=== PATIENT | female | born 1960 | race Caucasian/White ===

== ENCOUNTER 2018-09-15 07:17 | Outpatient (CLI) | payer OTHER, SELFPAY ==
[2018-09-15 08:14] LABS: Abs Immature Grans 0.02 k/cumm (0.0-0.09); Absolute Basophil Count 0.02 k/cumm (0.0-0.2); Absolute Eosinophil Count 0.09 k/cumm (0.0-0.7); Absolute Lymphocyte Count 2.64 k/cumm (1.2-3.4); Absolute Monocyte Count 0.69 k/cumm (0.11-0.7); Absolute Neutrophil Count 4.91 k/cumm (1.2-6.7); Basophils % 0.2; Eosinophils % 1.1; HCT 46.6 % (36.0-46.0); Immature Grans % 0.2; Lymphocytes % 31.5; Mean Corp. HGB Concentration 32.2 g/dL (32.0-36.0); Mean Corpuscular Volume 87.1 fL (80-95); Mean Platelet Volume 10.5 fL (8.0-11.0); Monocytes % 8.2; Neutrophils % 58.8; Platelet Count 282 x1000/uL (130-400); RBC 5.35 m/cumm (4.00-5.20); RBC Distribution Width 13.6 % (11.7-14.6); White Blood Cell Count 8.37 k/cumm (4.4-10.8)
[2018-09-15 09:00] LABS: Bilirubin Negative (Negative); Blood Negative (Negative); Clarity Sl Cloudy; Glucose Negative (Negative); Ketones Negative (Negative); Leukocyte Esterase Negative (Negative); Nitrite Negative (Negative); Urobilinogen 0.2 EU/dL (Up TO 0.2)
[2018-09-15 09:17] LABS: Hemoglobin A1C 5.9 % (4.5-6.2)
[2018-09-15 09:25] LABS: ESR 9 MM/HR (0-30)
[2018-09-15 09:37] LABS: ALT 26 U/L (12-78); AST 15 U/L (15-37); Albumin 3.6 g/dL (3.4-5.0); Alkaline Phosphatase 91 U/L (46-116); BUN 9 mg/dL (7-18); Bilirubin, Total 0.6 mg/dL (0.2-1.0); Chloride 103 mmol/L (98-107); Glucose 109 mg/dL (70-100); Magnesium 1.9 mg/dL (1.8-2.4); Potassium 3.8 mmol/L (3.5-5.1); Sodium 141 mmol/L (136-145); Total Protein 6.4 g/dL (6.4-8.2)
[2018-09-15 10:44] LABS: FREE T4 0.94 ng/dL (0.76-1.46)
[2018-09-15 12:37] LABS: Calcium 8.9 mg/dL (8.5-10.1)
== END 2018-09-15 07:37 ==
PROVIDERS: PCP Family Medicine; Visit Provider Family Medicine
DX: R53.83 Other fatigue (principal)
CPT/HCPCS: 36415; 80053; 85652; 81003; 83036; 83735; 84439; 84443; 85025

== ENCOUNTER 2018-09-22 09:23 | Outpatient (CLI) | payer OTHER, SELFPAY ==
[2018-09-22 11:36] LABS: Vitamin B12 259 pg/mL (193-986)
[2018-09-23 07:28] LABS: Vitamin D 25 Total 31.4 ng/ml (30-100)
[2018-09-25 11:32] LABS: Methylmalonic Acid 0.11 nmol/mL (<=0.40)
== END 2018-09-22 09:43 ==
PROVIDERS: PCP Family Medicine; Visit Provider Family Medicine
DX: R53.83 Other fatigue (principal); E53.8 Deficiency of other specified B group vitamins
CPT/HCPCS: 36415; 80186; 82306; 82607

== ENCOUNTER 2019-04-29 07:03 | Outpatient (CLI) | payer OTHER, SELFPAY ==
[2019-04-29 07:44] LABS: Abs Immature Grans 0.02 k/cumm (0.0-0.09); Absolute Basophil Count 0.03 k/cumm (0.0-0.2); Absolute Eosinophil Count 0.11 k/cumm (0.0-0.7); Absolute Lymphocyte Count 3.04 k/cumm (1.2-3.4); Absolute Monocyte Count 0.89 k/cumm (0.11-0.7); Absolute Neutrophil Count 6.42 k/cumm (1.2-6.7); Basophils % 0.3; HCT 47.8 % (36.0-46.0); HGB 15.7 g/dL (12.0-15.5); Immature Grans % 0.2; Lymphocytes % 28.9; Mean Corp. HGB Concentration 32.8 g/dL (32.0-36.0); Mean Corpuscular Hemoglobin 28.9 pg (27.0-33.0); Mean Corpuscular Volume 87.9 fL (80-95); Mean Platelet Volume 10.6 fL (8.0-11.0); Monocytes % 8.5; Neutrophils % 61.1; Platelet Count 271 x1000/uL (130-400); RBC 5.44 m/cumm (4.00-5.20); White Blood Cell Count 10.51 k/cumm (4.4-10.8)
[2019-04-29 08:49] LABS: ALT 31 U/L (12-78); AST 13 U/L (15-37); Albumin 3.7 g/dL (3.4-5.0); Alkaline Phosphatase 101 U/L (46-116); Anion Gap 11.2 mmol/L (3-11); BUN 10 mg/dL (7-18); Bilirubin, Total 0.4 mg/dL (0.2-1.0); CO2 29.8 mmol/L (21.0-32.0); CREATININE 0.75 mg/dL (0.55-1.02); Calcium 9.1 mg/dL (8.5-10.1); Chloride 102 mmol/L (98-107); Cholesterol 211 mg/dL (50-200); Glucose 106 mg/dL (70-100); HDL Cholesterol 40 mg/dL (40-60); LDL CHOLESTEROL 141 mg/dL (<100); Sodium 143 mmol/L (136-145); TSH (W/Ref FT4) 4.29 uIU/mL (0.358-3.74); Total Protein 6.7 g/dL (6.4-8.2); Triglyceride 181 mg/dL (30-150)
[2019-04-29 09:26] LABS: FREE T4 1.02 ng/dL (0.76-1.46)
[2019-05-03 13:16] LABS: Methylmalonic Acid 0.11 nmol/mL (<=0.40)
== END 2019-04-29 07:23 ==
PROVIDERS: PCP Family Medicine; Visit Provider Family Medicine
DX: E53.8 Deficiency of other specified B group vitamins (principal); E06.3 Autoimmune thyroiditis; F32.9 Major depressive disorder, single episode, unspecified; I10 Essential (primary) hypertension
CPT/HCPCS: 80053; 80061; 80186; 83721; 83036; 84439; 84443; 85025

== ENCOUNTER 2019-05-18 00:46 | Outpatient (CLI) | payer OTHER, SELFPAY ==
--- NOTE | 2019-05-18 10:30 | DI.MAMMO_ITS ---
SYMPTOMS/DIAGNOSIS: SCREENING, Z12.31 MAMMOGRAMS: Mammograms were interpreted according to the usual protocol including computer analysis with CAD system, tomosynthesis and C view imaging. The breast tissue is of moderate radiodensity. There is no dominant mass. There are no suspicious calcifications and there has been no significant interval change when compared with prior images. SUMMARY: No evidence of malignancy, category 1. Yearly screening mammography is recommended. Breast density category B. SA ASSESSMENT OF FINDINGS: Negative. Category 1. Patient will receive a letter notifying them of these results. BI-RADS category B. There are scattered areas of fibroglandular density.
== END 2019-05-18 01:06 ==
PROVIDERS: PCP Family Medicine; Visit Provider Family Medicine
DX: Z12.31 Encounter for screening mammogram for malignant neoplasm of breast
CPT/HCPCS: 77063; 77067

== ENCOUNTER 2019-09-10 11:16 | Emergency (ER) | payer OTHER, SELFPAY ==
[2019-09-10] VITALS (23 sets, daily range): BP systolic 127–148; BP diastolic 71–74; PULSE 74–90; RESP 4–24; TEMP 36.6; O2SAT 90–99
--- NOTE | 2019-09-10 11:24 | DI.RAD_ITS ---
EXAM: XR CHEST 2V PA LATERAL INDICATION: sob, h/o copd, r/o pneumonia/chf. COMPARISON: CHEST 2 VIEWS PA,LAT from 03/10/2018 TECHNIQUE: 2D digital imaging was performed. FINDINGS: Heart is not enlarged. Lungs are clear and well expanded. No pleural effusion seen. IMPRESSION: Negative examination of the chest.
--- NOTE | 2019-09-10 11:25 | W.ED.GENAD ---
Discharge Plan Disposition Patient Disposition: HOME Condition: Improving Discharge Details Chief Complaint: SOB Clinical Impression: Acute exacerbation of chronic obstructive pulmonary disease (COPD), Acute URI Primary Care Provider: Jonah Reinoso ED Provider: Honey Rios Home Meds and New Rx's Prescriptions: New albuterol sulfate 2.5 mg /3 mL (0.083 %) solution for nebulization 2.5 mg IH QID PRN (Reason: shortness of breath or wheezing) Qty: 75 RF: 0 prednisone 20 mg tablet See Rx Instructions .ROUTE .COMPLEX Qty: 18 RF: 0 Continued calcium citrate [Calcitrate] 200 mg (950 mg) tablet 500 mg PO DAILY RF: 0 cholecalciferol (vitamin D3) 3,000 unit tablet 5,000 unit PO DAILY RF: 0 Fish Oil 1 EACH capsule 1 ea PO DAILY RF: 0 metoprolol tartrate 50 mg tablet 25 mg PO BID Qty: 60 RF: 5 paroxetine HCl [Paxil] 20 mg tablet 20 mg PO DAILY Qty: 90 RF: 3 loratadine 10 MG tablet 10 mg PO DAILY RF: 0 trazodone 100 mg tablet 100 mg PO HS RF: 0 albuterol sulfate [ProAir HFA] 200 PUFF HFA aerosol inhaler 2 puff Inhalation Q4H PRN PRNQty: 1 RF: 0 Discharge Instructions Instructions: Upper Respiratory Infection (ED), COPD (Chronic Obstructive Pulmonary Disease) (ED) Additional Instructions: Use your albuterol inhaler and nebulizer as needed and directed. Stop your current prescription for your steroids and start this new prescription for steroids starting tomorrow. Use the Symbicort as directed. Follow-up with your primary care doctor next week for reevaluation. Return to the emergency department if you develop any worsening or new concerning symptoms. Discharge Data Discharge Date/Time-TO BE ENTERED AT DEPARTURE: 09/10/19 15:17 Discharge Physician: Honey Rios Medical Decision Making 59-year-old female with a history of COPD, hypertension, obstructive sleep apnea presents to the ED with complaint of shortness of breath with cough over the past few days. She is currently being treated with an inhaler and prednisone per PCP but without relief. She has scattered wheezing throughout. She has 1+ pitting bilateral lower extremity edema. No crackles noted. She is speaking in full sentences and does not appear in any acute respiratory distress. EKG notes a rate of 85, sinus with [address] depression noted in V6 but no other acute ST findings and no ST elevation. Differential diagnosis includes acute COPD, acute CHF, pneumonia, bronchitis, influenza. Will place an IV, give Solu-Medrol, DuoNeb, screening labs, influenza and chest x-ray and reassess. Patient denies any relief in her symptoms. She still has scattered wheezing throughout but does not appear in any acute respiratory distress. Chest x-ray appears clear. We will give a 7.5 mg neb and reassess. 1440 --patient states she feels much better. Lung sounds significantly improved. She is speaking in full sentences. Labs and imaging reviewed and unremarkable. White blood cell count 12. Electrolytes within normal limits. Troponin negative. BNP 341. Chest x-ray negative. Patient states she feels good to go home. Case discussed with respiratory who stated that patient had been prescribed Combivent but patient did not purchase due to high cost. Will send patient with a Symbicort inhaler. She is advised to use her albuterol inhaler and nebulizer as needed and stop her current prednisone prescription to start a higher dose prescription tomorrow. She is no longer smoker so do not see an indication for antibiotics at this time. She is advised to follow-up with her primary care doctor return here if worse. Imaging Data Radiologic Study: Radiologist's impression: XR Chest, 2 Views Exam date and time: 09/10/2019 12:15 PM Clinical history: 59 years old, female; Cough and shortness of breath TECHNIQUE: Imaging protocol: XR of the chest Views: 2 views. COMPARISON: CR CHEST 2 VIEWS PA,LAT 03/10/2018 7:45 PM FINDINGS: Lungs: Unremarkable. No consolidation. Pleural space: Unremarkable. No pleural effusion. No pneumothorax. Heart/Mediastinum: Unremarkable. No cardiomegaly. Bones/joints: No acute bony findings. IMPRESSION: Normal chest x-ray. Lab Data Lab results reviewed: Yes I reviewed the patient's lab results. Labs: 09/10/19 12:25 Nose Influenza Types A,B Antigen - Final Laboratory Tests Range/Units 09/10/19 09/10/19 09/10/19 11:48 11:48 12:25 WBC Cancelled RBC Cancelled Hgb Cancelled Hct Cancelled MCV Cancelled MCH Cancelled MCHC Cancelled RDW Cancelled Plt Count Cancelled MPV Cancelled Immature Gran % Cancelled Neutrophils % Cancelled Band Neutrophils % Cancelled Lymphocytes % Cancelled Atypical Lymphs % Cancelled Monocytes % Cancelled Eosinophils % Cancelled Basophils % Cancelled Metamyelocytes % Cancelled Myelocytes % Cancelled Promyelocytes % Cancelled Absolute Neutrophils Cancelled Absolute Lymphocytes Cancelled Absolute Monocytes Cancelled Absolute Eosinophils Cancelled Absolute Basophils Cancelled Nucleated RBCs Cancelled Differential Comment Cancelled Other Cell Type Cancelled RBC Morphology Cancelled Polychromasia Cancelled Hypochromasia Cancelled Poikilocytosis Cancelled Basophilic Stippling Cancelled Anisocytosis Cancelled Microcytosis Cancelled Macrocytosis Cancelled Spherocytes Cancelled Target Cells Cancelled Tear Drop Cells Cancelled Ovalocytes Cancelled Stomatocytes Cancelled Campos-Wolfforth Bodies Cancelled Dolores Cells Cancelled Acanthocytes (Spur) Cancelled Schistocytes Cancelled Sodium Cancelled 142 Potassium Cancelled 3.5 Chloride Cancelled 103 Carbon Dioxide Cancelled 29.6 Anion Gap Cancelled 9.4 BUN Cancelled 6 L Creatinine Cancelled 0.78 Estimated GFR/1.73 m2 Cancelled >= 60.00 Glucose Cancelled 113 H Calcium Cancelled 8.7 Magnesium Cancelled 1.7 L Total Bilirubin Cancelled 0.4 AST Cancelled 19 ALT Cancelled 33 Alkaline Phosphatase Cancelled 88 Troponin I Cancelled < 0.05 NT-Pro-B Natriuret Pep Cancelled Total Protein Cancelled 7.2 Albumin Cancelled 3.8 Range/Units 09/10/19 09/10/19 12:25 12:56 WBC 12.09 H RBC 5.26 H Hgb 15.3 Hct 46.5 H MCV 88.4 MCH 29.1 MCHC 32.9 RDW 13.7 Plt Count 294 MPV 10.1 Immature Gran % 0.5 Neutrophils % 69.2 Band Neutrophils % Lymphocytes % 21.9 Atypical Lymphs % Monocytes % 8.1 Eosinophils % 0.1 Basophils % 0.2 Metamyelocytes % Myelocytes % Promyelocytes % Absolute Neutrophils 8.37 H Absolute Lymphocytes 2.65 Absolute Monocytes 0.98 H Absolute Eosinophils 0.01 Absolute Basophils 0.02 Nucleated RBCs Differential Comment Other Cell Type RBC Morphology Polychromasia Hypochromasia Poikilocytosis Basophilic Stippling Anisocytosis Microcytosis Macrocytosis Spherocytes Target Cells Tear Drop Cells Ovalocytes Stomatocytes Campos-Wolfforth Bodies Dolores Cells Acanthocytes (Spur) Schistocytes Sodium Potassium Chloride Carbon Dioxide Anion Gap BUN Creatinine Estimated GFR/1.73 m2 Glucose Calcium Magnesium Total Bilirubin AST ALT Alkaline Phosphatase Troponin I NT-Pro-B Natriuret Pep 341 H Total Protein Albumin ECG Data Attestation: I personally reviewed and interpreted this ECG (s) as follows: Interpretation: Rate of 85, sinus, [address] depression noted in V6. No acute ST elevation. OK 154. QTc 471. QRS 96. HPI General Mode of arrival: ambulatory. Date/Time Provider Initiated Documentation: 09/10/19 11:21. Limitations to Documentation: no limitations. Information obtained by: patient. HPI Narrative: Patient is a 59-year-old female with a history of COPD, hypertension, obstructive sleep apnea who presents to the ED with a complaint of shortness of breath with cough over the past few days. She states she saw her pcp for her symptoms and is currently being treated with an inhaler and prednisone without any relief. She states the cough is occasionally productive of white sputum.. She denies any known fever and states she has been eating a drinking normally. She admits to chest pain that occurs only with coughing. She admits to chronic lower extremity swelling and states this is no worse than usual. Related Data Home Medications Medication Instructions Recorded Confirmed loratadine 10 mg PO DAILY 05/01/17 09/12/19 albuterol sulfate [ProAir HFA] 2 puff INHALATION Q4H PRN PRN #1 03/12/18 09/12/19 inh Fish Oil 1 ea PO DAILY 04/27/18 09/12/19 calcium citrate 200 mg (950 mg) 500 mg PO DAILY tab 09/10/18 09/12/19 tablet cholecalciferol (vitamin D3) 3,000 5,000 unit PO DAILY tab 09/10/18 09/12/19 unit tablet metoprolol tartrate 50 mg tablet 25 mg PO BID #60 tab-cap 10/06/18 09/12/19 paroxetine HCl 20 mg tablet 20 mg PO DAILY #90 tab-cap 10/06/18 09/12/19 albuterol sulfate 2.5 mg IH QID PRN #75 ml 09/10/19 09/12/19 prednisone See Rx Instructions .ROUTE 09/10/19 09/12/19 .COMPLEX #18 tab trazodone 100 mg PO HS 09/10/19 09/12/19 Previous Rx's Medication Instructions Recorded albuterol sulfate [ProAir HFA] 2 puff INHALATION Q4H PRN PRN #1 03/12/18 inh metoprolol tartrate 50 mg tablet 25 mg PO BID #60 tab-cap 10/06/18 paroxetine HCl 20 mg tablet 20 mg PO DAILY #90 tab-cap 10/06/18 albuterol sulfate 2.5 mg IH QID PRN #75 ml 09/10/19 prednisone See Rx Instructions .ROUTE 09/10/19 .COMPLEX #18 tab Allergies Allergy/AdvReac Type Severity Reaction Status Date / Time Sulfa (Sulfonamide Allergy Severe HIVES; RASH Unverified 09/10/19 11:21 Antibiotics) bupropion AdvReac Severe HIGH BLOOD Unverified 09/10/19 11:21 PRESSURE erythromycin base AdvReac Intermediate YEAST Unverified 09/10/19 11:21 INFECTIONS lisinopril AdvReac Mild cough Unverified 09/10/19 11:21 General Stated Complaint: SOB GOOD: 3 Review of Systems Review of Systems ROS Unobtainable: All systems reviewed & are unremarkable except as noted in HPI and below Constitutional Constitutional: Reports as per HPI, Denies chills and Denies fever(s) Eyes Eyes: Denies blurry vision ENT Ears, Nose, Mouth, and Throat: Denies dizziness, Denies sore throat and Denies throat swelling Cardiovascular Cardiovascular: Denies chest pain and Reports dyspnea Respiratory Respiratory: Reports cough and Reports dyspnea Gastrointestinal Gastrointestinal: Denies abdominal pain, Denies diarrhea and Denies vomiting Genitourinary Genitourinary: Denies hematuria and Denies dysuria Musculoskeletal Musculoskeletal: Denies back pain and Denies numbness Integumentary/Breasts Skin/Breast: Denies lesions and Denies rash Neurologic Neurologic: Denies dizziness, Denies focal weakness and Denies numbness Allergic/Immunologic Allergic/Immunologic: Denies throat swelling [facility] Medical History Chronic obstructive pulmonary disease (Inactive 04/27/18) Depression (Inactive) Essential hypertension (Inactive 11/08/13) 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) Obesity (Inactive 05/11/13) Obstructive sleep apnea syndrome (Inactive 05/11/13) Osteoporosis (Inactive) Peripheral neuralgia (Inactive) Surgical History History of section (Inactive 04/16/16) History of hysterectomy with oophorectomy (Inactive 04/16/16) History of tonsillectomy (Inactive 04/16/16) Family History Mother , 77 Diabetes Essential hypertension Heart disease Hyperlipidemia Lung cancer Breast cancer Liver cancer Father , 55 Substance abuse Lung cancer Sister Diabetes Depression Hyperlipidemia Asthma Sister , 44 Diabetes Depression Heart disease Hyperlipidemia Sister Essential hypertension Depression Hyperlipidemia Brother Substance abuse Depression Hyperlipidemia Alcohol abuse Brother Hyperlipidemia Brother Alcohol abuse Substance abuse Maternal Grandfather , 86 Diabetes Essential hypertension Heart disease Hyperlipidemia Lung cancer Maternal Grandmother Breast cancer Sister Depression Son Substance abuse Alcohol abuse Son Substance abuse Alcohol abuse Daughter Depression Paternal Grandfather No problems noted. Paternal Grandmother No problems noted. Social History Smoking/Tobacco Use Status: Former Tobacco Use Quit Date: 11/30/17 Second Hand Exposure: No Alcohol Intake: former Drug use: Never Substance use type: does not use Caregiver/Support person: No Household members: none Housing: apartment Communication Needs: None Do you need help understanding health information?: Rarely current occupation: [employer] SERVICES [employer] Pets and animals: No Sexually active: No Do you think of yourself as: straight/heterosexual What is your relationship status?: How often do you talk on the phone with friends or family?: three or more times per week How often do you get together with friends or relatives?: once per week How often do you attend amish or baptist services?: decline to answer Do you belong to any clubs or organized social groups?: no Panel score (0-1 are the most socially isolated patients): 1 What type of physical activity do you participate in: walking Duration: 15-30 minutes/day Frequency: daily Sveta/Denominational: None Special sveta needs: No Seatbelt use: always Helmet use: Yes Helmet use: sometimes Drive intox or ride w/intox motor vehicle escort driver: No Do you feel safe at home: Yes Do you feel safe in your relationship?: Yes Exam Const General: cooperative, healthy appearing and no acute distress HENMT Head: normal to inspection Face and sinus: normal facial exam Eyes General: appearance normal, both eyes and all related structures EOM: EOM intact bilaterally Neck Neck: normal visual inspection and No submandibular swelling Lymphatic: no lymphadenopathy noted Chest Chest: normal inspection of the chest and no tenderness Resp Effort & Inspection: normal respiratory effort and able to speak in complete sentences Auscultation: wheezes expiratory wheezes and inspiratory wheezes Cardio Rate: regular rate Rhythm: regular rhythm GI Inspection: normal to inspection Palpation: soft, not firm, not rigid and nontender Auscultation: normal bowel sounds Skin General skin exam: no rashes or lesions noted Neuro General: alert, awake and oriented x3 Cognition: normal cognition Speech: speech normal Motor: muscle tone normal throughout Sensory Exam: no sensory deficits noted Extrem General: normal to inspection, full ROM, normal capillary refill, no calf tenderness bilaterally and edema Laterality: bilateral (1+ pitting) Psych Appearance: grossly normal Mental Status: mental status grossly normal Speech and Movement: speech and movement normal Affect: normal affect Course Vital Signs Vital signs: Vital Signs Temperature 97.9 F 09/10/19 11:18 Pulse 84 09/10/19 11:18 Respiratory Rate 16 09/10/19 11:18 Pulse Oximetry 93 L 09/10/19 11:18 Temperature 97.9 F 09/10/19 11:18 Temperature Source Skin 09/10/19 11:18 Pulse 84 09/10/19 11:18 Respiratory Rate 16 09/10/19 11:18 Pulse Oximetry 93 L 09/10/19 11:18 Pain Level 8 09/10/19 11:18
[2019-09-10] MEDS: Albuterol/Ipratropium 3 ML UPD VIAL ×2 (11:55→12:37)
[2019-09-10] MEDS: methylPREDNISolone SUCC 125 MG VIAL IVP (12:00)
[2019-09-10 12:30] LABS: Abs Immature Grans 0.06 k/cumm (0.0-0.09); Absolute Basophil Count 0.02 k/cumm (0.0-0.2); Absolute Eosinophil Count 0.01 k/cumm (0.0-0.7); Absolute Lymphocyte Count 2.65 k/cumm (1.2-3.4); Absolute Monocyte Count 0.98 k/cumm (0.11-0.7); Absolute Neutrophil Count 8.37 k/cumm (1.2-6.7); Basophils % 0.2; Eosinophils % 0.1; HCT 46.5 % (36.0-46.0); HGB 15.3 g/dL (12.0-15.5); Immature Grans % 0.5; Lymphocytes % 21.9; Mean Corp. HGB Concentration 32.9 g/dL (32.0-36.0); Mean Corpuscular Hemoglobin 29.1 pg (27.0-33.0); Mean Corpuscular Volume 88.4 fL (80-95); Mean Platelet Volume 10.1 fL (8.0-11.0); Monocytes % 8.1; Neutrophils % 69.2; Platelet Count 294 x1000/uL (130-400); RBC 5.26 m/cumm (4.00-5.20); RBC Distribution Width 13.7 % (11.7-14.6); White Blood Cell Count 12.09 k/cumm (4.4-10.8)
[2019-09-10 12:52] LABS: ALT 33 U/L (14-59); AST 19 U/L (15-37); Albumin 3.8 g/dL (3.4-5.0); Alkaline Phosphatase 88 U/L (46-116); Anion Gap 9.4 mmol/L (3-11); BUN 6 mg/dL (7-18); Bilirubin, Total 0.4 mg/dL (0.2-1.0); CO2 29.6 mmol/L (21.0-32.0); CREATININE 0.78 mg/dL (0.55-1.02); Calcium 8.7 mg/dL (8.5-10.1); Chloride 103 mmol/L (98-107); Glucose 113 mg/dL (70-100); Magnesium 1.7 mg/dL (1.8-2.4); Potassium 3.5 mmol/L (3.5-5.1); Sodium 142 mmol/L (136-145); Total Protein 7.2 g/dL (6.4-8.2)
[2019-09-10 12:55] LABS: Troponin I < 0.05 ng/mL (0.00-0.06)
--- NOTE | 2019-09-10 12:59 | DI.VRAD_ITS ---
PROCEDURE INFORMATION: Exam: XR Chest, 2 Views Exam date and time: 09/10/2019 12:15 PM Clinical history: 59 years old, female; Cough and shortness of breath TECHNIQUE: Imaging protocol: XR of the chest Views: 2 views. COMPARISON: CR CHEST 2 VIEWS PA,LAT 03/10/2018 7:45 PM FINDINGS: Lungs: Unremarkable. No consolidation. Pleural space: Unremarkable. No pleural effusion. No pneumothorax. Heart/Mediastinum: Unremarkable. No cardiomegaly. Bones/joints: No acute bony findings. IMPRESSION: Normal chest x-ray. Dictated and Authenticated by: Sean Tanner MD. Ordering:HILARIO Méndez MD
[2019-09-10 13:30] LABS: NT-proBNP 341 pg/mL
[2019-09-10] MEDS: Budesonide/Formoterol 160/4.5 6 GM 60 PUFF INH IH (15:05)
[2019-09-10] MEDS: Inhaler, Assist Device 1 EACH MC (15:06)
== END 2019-09-10 15:17 | disposition home or self-care (01) ==
PROVIDERS: Emergency Provider Physician Assistant; PCP Family Medicine
DX: J44.1 Chronic obstructive pulmonary disease with (acute) exacerbation (principal); J06.9 Acute upper respiratory infection, unspecified; I10 Essential (primary) hypertension; Z87.891 Personal history of nicotine dependence
CPT/HCPCS: 36415; 80053; 87449; 93005; 94640; 96374; 99285; 71046; 83735; 83880; 84484; 85025; 93010; J2930; J7620

== ENCOUNTER 2020-05-22 08:11 | Outpatient (CLI) | payer OTHER, SELFPAY ==
[2020-05-22 22:51] LABS: COVID-19 RT-PCR UVMMC Result Negative (Negative)
== END 2020-05-22 08:31 ==
PROVIDERS: PCP Family Medicine; Visit Provider Family Medicine
DX: Z11.59 Encounter for screening for other viral diseases (principal)
CPT/HCPCS: U0003

== ENCOUNTER 2020-05-25 04:01 | Outpatient (CLI) | payer OTHER, SELFPAY ==
--- NOTE | 2020-06-04 08:59 | W.PFT ---
Date of service: 05/25/20 Time of Service: 08:11 Pulmonary Function Test Result Interpretation Spirometry: Spirometry shows mild obstructive airways disease with no significant bronchodilator response Lung Volumes: Not done Diffusion Capacity: Not done Airway Pressure: Not done Impression Normal spirometry, no bronchodilator response. Clinical correlation recommended Clinical Correlation therefore is recommended.
== END 2020-05-25 04:21 ==
PROVIDERS: PCP Family Medicine; Visit Provider Family Medicine
DX: J44.9 Chronic obstructive pulmonary disease, unspecified (principal); R06.09 Other forms of dyspnea; R60.0 Localized edema; R05 Cough; Z87.891 Personal history of nicotine dependence
CPT/HCPCS: 94060

== ENCOUNTER 2020-06-05 02:22 | Outpatient (CLI) | payer OTHER, SELFPAY ==
[2020-06-05 10:24] LABS: HCT 48.2 % (36.0-46.0); HGB 15.5 g/dL (12.0-15.5); Mean Corp. HGB Concentration 32.2 g/dL (32.0-36.0); Mean Corpuscular Hemoglobin 28.7 pg (27.0-33.0); Mean Corpuscular Volume 89.1 fL (80-95); Mean Platelet Volume 10.4 fL (8.0-11.0); Platelet Count 288 x1000/uL (130-400); RBC 5.41 m/cumm (4.00-5.20); RBC Distribution Width 13.7 % (11.7-14.6); White Blood Cell Count 7.87 k/cumm (4.4-10.8)
[2020-06-05 10:55] LABS: ALT 24 U/L (14-59); AST 12 U/L (15-37); Albumin 3.8 g/dL (3.4-5.0); Alkaline Phosphatase 101 U/L (46-116); Anion Gap 8.9 mmol/L (3-11); BUN 9 mg/dL (7-18); Bilirubin, Total 0.6 mg/dL (0.2-1.0); CO2 30.1 mmol/L (21.0-32.0); CREATININE 0.72 mg/dL (0.55-1.02); Calcium 8.8 mg/dL (8.5-10.1); Calculated LDL 124 mg/dL (<100); Chloride 103 mmol/L (98-107); Cholesterol 193 mg/dL (<200); Glucose 113 mg/dL (74-106); HDL Cholesterol 38 mg/dL (40-60); Potassium 3.5 mmol/L (3.5-5.1); Sodium 142 mmol/L (136-145); TSH (W/Ref FT4) 4.18 uIU/mL (0.36-3.74); Total Protein 6.3 g/dL (6.4-8.2); Triglyceride 156 mg/dL (<150)
[2020-06-05 11:13] LABS: FREE T4 1.05 ng/dL (0.76-1.46)
--- NOTE | 2020-06-05 13:30 | DI.MAMMO_ITS ---
EXAM: MAMMO SCREENING CLINICAL HISTORY: screening, Z12.31 TECHNIQUE: Mammograms were interpreted according to the usual protocol including computer analysis w ith CAD system, tomosynthesis and C-view imaging. COMPARISON: 2009 through 2018 FINDINGS: The breasts are composed of scattered fibroglandular densities, Breast Density category B. No suspicious masses or suspicious microcalcifications are seen. No skin thickening or abnormal axillary lymph nodes are seen. There has been no significant change from prior exams. IMPRESSION: BIRADS Category 1, Negative Mammogram. Yearly screening mammography is recommended. Breast Density Category B, scattered fibroglandular densities.
--- NOTE | 2020-06-05 15:15 | DI.RAD_ITS ---
EXAM: XR CHEST 2V PA LATERAL CLINICAL HISTORY: FATIGUE, DYSPNEA, PEDAL EDEMA, R60.0, R06.00, J44.9 TECHNIQUE: 2D digital imaging was performed. COMPARISON: CT HR CHEST/CHEST WO from 03/11/2018 CR,XR XR CHEST 2V PA LATERAL from 09/10/2019 FINDINGS: MEDIASTINUM: Normal. HEART: Normal. PULMONARY VASCULATURE: Normal. LUNGS: Clear. Mild emphysematous and fibrotic changes. No evidence pulmonary edema. PLEURAL SPACE: No pleural effusion or pneumothorax. BONE:Mild degenerative changes are seen in the thoracic spine. IMPRESSION: No acute pulmonary findings. DATA REPOSITORY: RADIATION DOSE DELIVERED:
[2020-06-07 04:46] LABS: Vitamin D 25 Total 51.6 ng/ml (30-100)
== END 2020-06-05 02:42 ==
PROVIDERS: PCP Family Medicine; Visit Provider Family Medicine
DX: Z00.00 Encounter for general adult medical examination without abnormal findings (principal); R53.83 Other fatigue; R06.09 Other forms of dyspnea; R60.0 Localized edema; J44.9 Chronic obstructive pulmonary disease, unspecified; M81.0 Age-related osteoporosis without current pathological fracture; Z12.31 Encounter for screening mammogram for malignant neoplasm of breast
CPT/HCPCS: 36415; 77063; 77067; 80053; 80061; 82306; 85027; 71046; 84439; 84443

== ENCOUNTER 2020-06-11 00:26 | Outpatient (CLI) | payer OTHER, MEDICAID, SELFPAY ==
--- NOTE | 2020-06-11 07:00 | DI.NM_ITS ---
APPROVED REPORT Exam: Exercise Treadmill Patient Location: Out-Patient Room/Bed: Stress Nurse: Ilda Nina RN BMI: 38.91 Baseline Rhythm: Sinus Rhythm, APC's Medical History Medical History: COPD, Depression, HTN, Hyperlipidemia, former smoker Cardiac Medications: Amitriptyline. Metoprolol. Paxil. Trazadone., Allergies: Erythromycin. Wellbutrin. Lisinopril. Cardiac Risk Factors: HTN, Hyperlipidemia, FHX of CAD, COPD, former smoker Exercise History: Indeterminate Lung Sounds: Clear to auscultation Heart Sounds: Irregular Stress Test Details Test: Exercise stress converted to pharmacologic stress due to failure to obtain a diagnostic stress test. Nuclear Acquisition: Rest Tc-99m/Stress Tc-99m 1 day Rest Isotope: Tc-99m Sestamibi. Dose: 12.1 Date: 06/11/2020 Injection Time: 0930 Stress Isotope: Tc-99m Sestamibi. Dose: 37.0 Date: 06/11/2020 Injection Time: 1055 HR Resting HR Supine: 65 bpm Max Heart Rate (APMHR): 159 bpm Resting HR Standin bpm Target HR (85% APMHR): 135 bpm Max HR Achieved: 97 bpm % of APMHR: 61 Recovery HR: 78 bpm HR response to stress: Blunted HR response to stress BP Resting BP Supine: 166/88 mmHg Resting BP Standin/84 mmHg Max BP: 174/82 mmHg Recovery BP: 170/90 mmHg BP response to stress: Normal blood pressure response to stress. ECG Resting ECG: Sinus Rhythm Ectopy: VPC Stress ECG: Sinus Rhythm Arrhythmia: VPC's Recovery ECG: Sinus Rhythm Recovery ST Change: Flattened T-waves in precordial leads and T wave inversion Lead(s): V3 Recovery Arrhythmia: VPC Clinical Reason for Termination: Dyspnea Stress Symptoms: Dyspnea Exercise duration: 03 min41 sec Highest Stage Reached: Stage 2: 2.5 mph at 12% grade. Exercise capacity: 5.45 METs Functional Capacity: Mildly deminished capacity Stress ECG Conclusion 1. Resting electrocardiogram was within normal limits. 2. Patient exercised on the Pilo protocol and completed a workload of 5.45 METS. She achieved 861% of predicted heart rate for age 3. Normal blood pressure response to exercise. Blunted heart rate response to exercise 4. Electrocardiographically the test was nondiagnostic due to inadequate heart rate 5. Sporadic PVCs were seen Stress Test Summary STAGE Time (mins) Speed (mph) Grade (%) HR BP SYMPTOMS METS Supine 65 166/88 Standing 69 160/84 1 3 1.7 10 90 174/82 Transitioned from treadmill test to lexiscan at 0341 per pt's request to s top treadmill due to dyspnea. 4.6 1 min post Lexiscan injection 85 170/82 3 min post Lexiscan injection 83 166/86 6 min post Lexiscan injection 78 170/90 MPI Conclusion Normal myocardial perfusion without evidence of ischemia or prior infarction Ejection fraction was 68% Radiologist Interpretation Radiologist Interpretation by: Aniket Foley MD Interpretation Date/Time: 06/11/2020 16:17:08
[2020-06-11] MEDS: Regadenoson 0.4 MG/5 ML SYR IVP (11:32)
== END 2020-06-11 00:46 ==
PROVIDERS: PCP Family Medicine; Visit Provider Family Medicine
DX: R07.9 Chest pain, unspecified (principal); R06.09 Other forms of dyspnea; R60.0 Localized edema; R53.83 Other fatigue; I10 Essential (primary) hypertension; E78.5 Hyperlipidemia, unspecified; J44.9 Chronic obstructive pulmonary disease, unspecified; Z87.891 Personal history of nicotine dependence; Z82.49 Family history of ischemic heart disease and other diseases of the circulatory system
CPT/HCPCS: 78452; 93017; J2785

== ENCOUNTER 2020-07-03 00:55 | Outpatient (CLI) | payer OTHER, SELFPAY ==
--- NOTE | 2020-07-03 07:30 | DI.US_ITS ---
APPROVED REPORT EXAM: Comprehensive 2D, Doppler, and color-flow Echocardiogram Patient Location: Out-Patient Lockstitch Zipper Setter: Yadira Ortiz RDCS (AE) Indications: Fatigue, Edema, Chest pain, Dyspnea Other Information Study Quality: Adequate Conclusion Left Ventricle : The left ventricle is normal size. The left ventricular systolic function is normal. The left ventricular ejection fraction is within the normal range. There is normal left ventricular wall thickness. There is normal LV segmental wall motion. Diastolic function is normal. LVEF is 60%. Right Ventricle : The right ventricle is normal size. The right ventricular systolic function is norm al. The RVSP is 26 mmHg. Atria : The left atrium size is normal. The right atrium size is normal. Mitral Valve : The mitral valve is normal in structure. No evidence of mitral valve stenosis. Mild to moderate mitral regurgitation. Great Vessels : The ascending aorta is mildly dilated 3.3cm. Aortic arch is normal in caliber. IVC is normal in size and collapses >50% with inspiration. There is no prior study available for comparison. Wall motion Left Ventricle The left ventricle is normal size. The left ventricular systolic function is normal. The left ventric ular ejection fraction is within the normal range. There is normal left ventricular wall thickness. T here is normal LV segmental wall motion. Diastolic function is normal. There is no ventricular septal defect visualized. LVEF is 60%. Right Ventricle The right ventricle is normal size. The right ventricular systolic function is normal. The RVSP is 26 mmHg. Atria The left atrium size is normal. The right atrium size is normal. The interatrial septum is intact wit h no evidence for an atrial septal defect. Aortic Valve Aortic valve is trileaflet. There is no aortic valvular stenosis. No aortic regurgitation is present. Mitral Valve The mitral valve is normal in structure. No evidence of mitral valve stenosis. Mild to moderate elfego l regurgitation. Tricuspid Valve The tricuspid valve is normal in structure. There is no tricuspid valve stenosis. Trace to mild tricu spid regurgitation. Pulmonic Valve Pulmonic valve is not well visualized. There is no pulmonic valvular stenosis. There is no pulmonic v alvular regurgitation. Great Vessels The aortic root is normal in size. The ascending aorta is mildly dilated 3.3cm. Aortic arch is normal in caliber. IVC is normal in size and collapses >50% with inspiration. Pericardium There is no pericardial effusion. 2D Dimensions IVSD d PLAX 0.91 cm F: 0.6-1.0 LV Vol A2C d MOD 88.8 mL LVPW d PLAX 0.92 cm F: 0.6 - 1.0 LV Vol A4C d MOD 78.3 mL LVID d PLAX 5.10 cm F: 3.8 - 5.2 LA vol/ BSA A2C s A-L 26.0 mL/m2 LVDs 3.35 cm F: 2.2 - 3.5 LA vol/ BSA A4C s A-L 22.3 mL/m2 Ao Root d 2.30 cm F: 2.7 - 3.3 LA Vol/ BSA Biplane s A-L 24.3 mL/m2 RA Area A4C 14.00 cm2 LA Area A4C s MOD 16.23 cm2 RA Vol/ BSA A4C s A-L 16.7 mL/m2 LA Area A2C s MOD 17.35 cm2 Ao Asc Diam d 3.36 cm F: 2.3 - 3.1 LV EF A4C MOD 63.1 % LV EF Teichholz 62.5 % LV EF A2C MOD 59.6 % LVEF ([place]'s) 58.80 % F: 54 - 74 LV EF Biplane MOD 58.8 % LV Volume 66.60 mL F: 46 - 106 SV 51.26 mL LV Volume Index 35.23 mL/m2 F: 29 - 61 SV Index 27.07 mL/m2 LV Vol Biplane MOD 87.2 mL FS 33.95 % M-Mode TAPSE 1.81 cm (M/F) >1.7 LV Diastology MV E' medial 0.108 (>0.07 m/s) E/A Ratio 1.0 LV E/e MED 7.90 (<14) MV E Vmax 0.85 (0.4-1.3 m/s) MV E' lateral 0.089 (>0.1 m/s) MV A Vmax 0.85 (0.4-1.3 m/s) LV E/e LAT 9.50 (<14) MV E/A Ratio 0.99 MV E/E' medial 7.91 MV E/E' lateral 9.53 Aortic Valve LVOT Area 3.11 cm2 AoV Area Vmax 2.33 cm2 LVOT Vmax 1.19 m/s AoV Area/ BSA (Vmax) 1.23 cm2/m2 LVOT Mean Deion. 0.91 m/s RACIEL Mean Deion. 2.20 cm2 LVOT Peak Grad 5.6 mmHg RACIEL Mean Deion. Index 1.16 cm2/m2 LVOT Mean Grad 3.7 mmHg LVOT VTI 0.261 m LVOT Diam s 1.95 cm AoV Vmax 1.58 m/s Velocity Ratio 0.75 AoV Mean Deion. 1.29 m/s AoV Peak Grad 10.0 mmHg LVOT SV 81.24 mL AoV Mean Grad 7.0 mmHg AoV VTI 0.358 m AoV Area VTI 2.27 cm2 AoV Area/ BSA (VTI) 1.20 cm/m2 Mitral Valve MV DT 201 (160-240 msec) MR Vmax 4.56 m/s MV PHT 58 msec MR VTI 1.558 m MV Area PHT 3.77 cm2 MR Peak Grad 83.3 mmHg MV VTI 0.353 m MR Mean Grad 54.8 mmHg MV Area VTI 2.30 (4.0-6.0 cm2) MR PISA Radius 0.45 cm MR EROA 0.10 cm2 MR Aliasing Velocity 0.35 m/s MR PISA 1.29 cm2 Pulmonary Valve PV Vmax 0.80 (0.5-1.5 m/s) RVOT Peak Gr. 0.73 mmHg PV Peak Grad 2.6 mmHg RVOT Mean Gr. 0.40 mmHg PV Mean Grad 1.7 mmHg RVOT VTI 0.116 m PV VTI 0.207 m RVOT Vmax 0.43 m/s Tricuspid Valve TR Peak Grad 23.1 mmHg TR Vmax 2.41 m/s RA Pressure 3.00 mmHg RVSP (TR) 26.2 mmHg
== END 2020-07-03 01:15 ==
PROVIDERS: PCP Family Medicine; Visit Provider Family Medicine
DX: R06.00 Dyspnea, unspecified (principal); R07.9 Chest pain, unspecified; R60.0 Localized edema; I34.0 Nonrheumatic mitral (valve) insufficiency
CPT/HCPCS: 93306

== ENCOUNTER 2021-05-13 10:27 | Day surgery (SDC) | payer MEDICAID, SELFPAY ==
--- NOTE | 2021-05-13 10:43 | W.ANESPRE ---
General Info Date of Service Date Performed: 05/13/21 Height: 5 ft Weight: 97.069 kg Body Mass Index (BMI): 41.8 Surgical Procedure: Operation Date: 05/13/21 12:10 Proposed Procedures Side Surgeon p Cataract Extraction with IOL Implant Left Fransisco Dumont MD Meds Allergies and Home Medications Allergies Allergy/AdvReac Type Severity Reaction Status Date / Time Sulfa (Sulfonamide Allergy Severe HIVES; RASH Verified 05/13/21 10:58 Antibiotics) bupropion AdvReac Severe HIGH BLOOD Verified 05/13/21 10:58 PRESSURE erythromycin base AdvReac Intermediate YEAST Verified 05/13/21 10:58 INFECTIONS lisinopril AdvReac Mild cough Verified 05/13/21 10:58 Home Medication Medication Instructions Recorded calcium citrate 200 mg (950 mg) 500 mg PO DAILY tab 09/10/18 tablet cholecalciferol (vitamin D3) 75 5,000 unit PO DAILY tab 09/10/18 mcg (3,000 unit) tablet albuterol sulfate 90 mcg/actuation 2 puff INHALATION Q4H PRN PRN #8.5 06/06/20 aerosol inhaler gm albuterol sulfate 2.5 mg IH QID PRN #420 ml 02/13/21 amlodipine 5 mg tablet 5 mg PO DAILY #90 tab-cap 02/13/21 loratadine 10 mg tablet 10 mg PO DAILY #90 tab 02/13/21 metoprolol tartrate 50 mg tablet 25 mg PO BID #90 tab-cap 02/13/21 trazodone 100 mg tablet 100 mg PO HS #90 tab 02/13/21 furosemide 20 mg tablet 20 mg PO QAM PRN #90 tab 05/02/21 paroxetine HCl 30 mg tablet 30 mg PO DAILY #90 tab-cap 05/02/21 propylene glycol [Systane Complete] 1 drp OPHTHALMIC (EYE) TID PRN 05/13/21 Current Visit Medications: Current Medications Generic Name Dose Route Start Last Admin Trade Name Freq PRN Reason Stop Dose Admin Acetaminophen 1,000 mg 05/13/21 06:00 Acetaminophen 500 Mg Tab PO Q4H PRN PRN Miscellaneous Medication 0 ml 05/13/21 06:00 Prednisolone 1%, Moxifloxacin 0.5%, Nepafenac 0.1% 5ml Btl OS DIRECTED JOY Miscellaneous Medication 0 ml 05/13/21 06:00 Tropicam./Phenyleph. (1/2.5%) 5 Ml Btl OS DIRECTED JOY Tetracaine HCl 0 ml 05/13/21 06:00 Tetracaine 0.5% 4 Ml Btl OS DIRECTED [facility] PFSH Active Problems Active Problems: Problem Status Onset Code Cortical cataract of left eye H26.9 Nuclear sclerotic cataract of left eye H25.12 COPD with exacerbation J44.1 DVT prophylaxis [id number] Hypertension, essential, benign I10 Discharge planning issues Z02.9 Depressive disorder 05/11/13 F32.9 Family history of breast cancer 04/11/15 Z80.3 Family history of breast cancer in mother 04/27/18 Z80.3 Pneumonitis 03/24/18 J18.9 Polyp of colon 05/11/13 K63.5 Smoker 05/11/13 F17.200 Family history of diabetes mellitus Z83.3 Fatigue R53.83 Vitamin D deficiency E55.9 Lateral epicondylitis of both elbows 04/16/16 M77.11, M77.12 Bilateral carpal tunnel syndrome 04/16/16 G56.03 Pedal edema R60.0 Ascending aorta dilatation I77.810 Mitral regurgitation I34.0 Chest pain R07.9 Dyspnea R06.00 Essential hypertension 11/08/13 I10 Chronic obstructive pulmonary disease 04/27/18 J44.9 Medical History Medical History Chest pain Per pt. states she had a full work and didn't find anything. Chronic obstructive pulmonary disease (04/27/18) Depression Dyspnea Essential hypertension (11/08/13) Mendy's thyroiditis (06/04/18) Hx of appendicitis Obesity (05/11/13) Obstructive sleep apnea syndrome (05/11/13) per pt. states a mild form Osteoporosis Peripheral neuralgia Surgical History Surgical History History of section (04/16/16) History of hysterectomy with oophorectomy (04/16/16) History of tonsillectomy (04/16/16) Hx of appendectomy Hx of section x3 Tobacco Smoking/Tobacco Use Status: Former Tobacco Use Tobacco: How many years used: 30 Passive smoking exposure: Yes Second hand exposure: No Alcohol Alcohol Intake: former Substance Use Substance use: Never Substance use type: does not use Vital Signs and Lab Results Lab Results Blood Type / Crossmatch: No Data to Display Complete Blood Count: No Data to Display Complete Metabolic Panel: No Data to Display Liver Function Panel: No Data to Display Coagulation Panel: No Data to Display Cardiac Panel: No Data to Display Arterial Blood Gas: No Data to Display Venous Blood Gas: No Data to Display Pancreas Panel: No Data to Display Thyroid Panel: No Data to Display Infectious Disease: No Data to Display Blood Cultures: No Data to Display Toxicology Panel: No Data to Display Imaging and Studies Imaging and Studies EKG Summary: 06/06/2020 Exam: Resting ECG Patient Location: O HR:71 bpm ECG Measurements Heart Rate 71 AXIS FL 172 P 60 QRSd 101 QRS 8 QT 450 T53 QTc 491 <Conclusion> Sinus rhythm...normal P axis, V-rate 60- 99 Stress Test Summary: 06/11/2020 Stress ECG Conclusion 1. Resting electrocardiogram was within normal limits. 2. Patient exercised on the Pilo protocol and completed a workload of 5.45 METS. She achieved 861% of predicted heart rate for age 3. Normal blood pressure response to exercise. Blunted heart rate response to exercise 4. Electrocardiographically the test was nondiagnostic due to inadequate heart rate 5. Sporadic PVCs were seen Echocardiogram Summary: 07/03/2020 Conclusion Left Ventricle : The left ventricle is normal size. The left ventricular systolic function is normal. The left ventricular ejection fraction is within the normal range. There is normal left ventricular wall thickness. There is normal LV segmental wall motion. Diastolic function is normal. LVEF is 60%. Right Ventricle : The right ventricle is normal size. The right ventricular systolic function is normal. The RVSP is 26 mmHg. Atria : The left atrium size is normal. The right atrium size is normal. Mitral Valve : The mitral valve is normal in structure. No evidence of mitral valve stenosis. Mild to moderate mitral regurgitation. Great Vessels : The ascending aorta is mildly dilated 3.3cm. Aortic arch is normal in caliber. IVC is normal in size and collapses >50% with inspiration. There is no prior study available for comparison. Pulmonary Function Summary: 05/25/2020 Impression Normal spirometry, no bronchodilator response. Clinical correlation recommended Clinical Correlation therefore is recommended. Anesthesia Assessment and Plan Anesthesia History Personal History: No History of Anesthesia Complications Family History: No Family History of Anesthesia Complications Exercise Tolerance Exercise Tolerance: Metabolic Equivalents>4 Pertinent Negatives Pertinent Negatives: No Symptoms of GERD, No Major Cardiovascular Symptoms or Complaints, No Major Pulmonary Symptoms or Complaints and No History of CVA/TIA Cardiac & Pulmonary Exam Cardiac Exam: Normal S1/S2 Heart Sounds Pulmonary Exam: Clear Bilateral Breath Sounds Airway Exam Known Difficult Airway: No Mallampati Class: 2 Mouth Opening: Normal (> 3cm) Thyromental Distance: Greater than 3 cm Neck Range of Motion: Full ROM Neck Circumference: Normal Teeth Condition: Removable Dentures/Plates Upper and Removable Dentures/Plates Lower ASA Classification ASA Score: ASA 2 Emergency Case?: No NPO Status NPO Status: NPO Clears >2 hours, Solids >8 hours Anesthesia Plan Resuscitation Status: Full Code Anesthesia Technique: MAC Anesthesia Airway Planned: Natural Airway Monitors Used: Standard Monitors
[2021-05-13] MEDS: Tropicam./Phenyleph. (1/2.5%) 5 ML BTL OS ×3 (10:56→11:09)
[2021-05-13 11:04] VITALS: BP 159/88; PULSE 70; RESP 16; TEMP 36.7; O2SAT 92
[2021-05-13 11:20] VITALS: BMI 41.8
[2021-05-13] MEDS: Tetracaine 0.5% 4 ML BTL OS (12:17)
[2021-05-13] MEDS: Duovisc Viscoelastic System EACH 1 EACH (12:18)
[2021-05-13] MEDS: Balanced Salt Soln.-PLUS 500 ML BAG (12:18)
[2021-05-13] MEDS: Lidocaine 1% Pres-Free 5 ML VIAL (12:19)
[2021-05-13] MEDS: Lidocaine 2% Jelly 6 ML SYR (12:20)
[2021-05-13] MEDS: Povidone-Iodine Ophth 30 ML BTL (12:22)
--- NOTE | 2021-05-13 12:35 | W.ANESPOSTOP ---
Postoperative Evaluation Date, Time and Location Date Performed: 05/13/21 Time Performed: 12:39 Patient Location: Day Surgery Unit Vital Signs Most Recent Imported Vital Signs: Most Recent Vital Signs Temp Pulse Resp BP Pulse Ox 36.7 C 70 16 159/88 H 92 05/13/21 11:04 05/13/21 11:04 05/13/21 11:04 05/13/21 11:04 05/13/21 11:04 Most Recent Manually Entered Vital Signs: Adult Blood Pressure: 146/77 Heart Rate: 69 Respirations: 14 Oxygen Saturation (%): 98 Temperature (C): 36.5 C Pain Score (0-10 Scale): 0 Pain Score Most Recent Pain Score: Most Recent Pain Score Pain Level 0 05/13/21 11:04 Assessment Mental Status: Awake (Alert & Oriented to Patient Baseline) Airway and Respiratory Function: Patent airway with normal (patient baseline) respiratory exam Cardiovascular Function: Hemodynamically Stable Hydration Status: Adequately Hydrated Nausea & Vomiting: No Nausea or Vomiting Pain: Pt. Denies Any Pain Peripheral Nerve Block: Other (Local by Dr. Dumont)
[2021-05-13 12:42] VITALS: BP 146/77; PULSE 69; RESP 14; TEMPC 36.5; O2SAT 98
--- NOTE | 2021-05-13 12:42 | W.PM.DSUDISC ---
Discharge Plan Disposition Patient Disposition: HOME Condition: Good Discharge Details Reason For Visit: CATARACT Attending Provider: Fransisco Dumont Primary Care Provider: Garrett Chan Home Meds and New Rx's Prescriptions: No Action calcium citrate [Calcitrate] 200 mg (950 mg) tablet 500 mg PO DAILY RF: 0 cholecalciferol (vitamin D3) 3,000 unit tablet 5,000 unit PO DAILY RF: 0 furosemide 20 mg tablet 20 mg PO QAM PRN (Reason: edema) Qty: 90 RF: 2 paroxetine HCl 30 mg tablet 30 mg PO DAILY Qty: 90 RF: 3 albuterol sulfate [ProAir HFA] 90 mcg/actuation HFA aerosol inhaler 2 puff Inhalation Q4H PRN PRN (Reason: shortness of breath or wheezing) Qty: 8.5 RF: 3 albuterol sulfate 2.5 mg /3 mL (0.083 %) solution for nebulization 2.5 mg IH QID PRN (Reason: shortness of breath or wheezing) Qty: 420 RF: 3 amlodipine 5 mg tablet 5 mg PO DAILY Qty: 90 RF: 4 loratadine 10 mg tablet 10 mg PO DAILY Qty: 90 RF: 3 metoprolol tartrate 50 mg tablet 25 mg PO BID Qty: 90 RF: 3 trazodone 100 mg tablet 100 mg PO HS Qty: 90 RF: 3 Systane Complete 0.6 % Drops 1 drp OPHTHALMIC (EYE) TID PRNRF: 0 Discharge Instructions Stand Alone Forms: Post-op Topical Cataract, Azul Beaver (DSU) Discharge Orders Discharge Orders: Discharge Order (Routine); Ordered 05/13/21 Ordered By: Fransisco Dumont DS: Diagnosis Discharge Diagnosis (1) Cortical cataract of left eye: Status: Resolved (2) Nuclear sclerotic cataract of left eye: Status: Resolved
[2021-05-13 12:47] VITALS: BP 146/77; PULSE 67; RESP 14; TEMP 36.5; O2SAT 99
--- NOTE | 2021-05-13 12:47 | W.PM.OP ---
Date of service: 05/13/21 Time of Service: 12:48 Operative Note Operative Note DATE OF PROCEDURE: 05/13/21 PRE-OP DIAGNOSIS: Nuclear/cortical cataract, left eye POST-OP DIAGNOSIS: same PROCEDURE: Cataract extraction using phacoemulsification with intraocular lens implant, left eye SURGEON: Fransisco Dumont ANESTHESIA TYPE: Local By Surgeon and MAC Refer to Anesthesia Record PATHOLOGY: none sent COMPLICATIONS: None Patient was transported to: same day Patient's condition: stable Implants: Beni and [employer] / [employer] Tecnis ZCB00 Indications: Progressive decreased vision due to cataract, left eye Procedure Description: CATARACT SURGERY OPERATIVE REPORT PREOPERATIVE DIAGNOSIS: Nuclear/cortical cataract, left eye POSTOPERATIVE DIAGNOSIS: Same OPERATION: Cataract extraction using phacoemulsification with posterior chamber intraocular lens implant, left eye. IOL: IOL Computer Systems Design Analyst/Model: [employer] / TIMUR Tecnis ZCB00 IOL Power: + 25.5 diopters IOL Serial Number: [id number] Optic Diameter: 6.0mm Haptic/Overall Diameter: 13.0mm PHACO INFO: [employer] Vision System with OZil and Active Fluidics Cumulative Dispersed Energy (CDE): 2.57 seconds SURGEON: Fransisco Dumont MD, HAYLEE ANESTHESIA: Monitored Anesthesia Care (MAC), with local sub-tenon's anesthetic infiltration COMPLICATIONS: None SPECIMENS: None INDICATIONS FOR PROCEDURE: The patient is a 60-year-old lady with history of diminished visual acuity in her left eye secondary to the development of nuclear and cortical cataract. She is significantly symptomatic that she desires cataract surgery and attempt to improve and maximize her vision. PROCEDURE: The correct surgical eye was identified and marked as the left eye and the pupil was dilated in the preoperative area using mydriatics and cycloplegics. The dilated pupil size was 6.5 mm. Oral sedation was administered in the form of an Imprimis MKO Melt (midazolam 3mg/ketamine 25mg/ondansetron 2mg). The patient was brought to the operating room where cardiopulmonary monitoring was instituted and surgical time-out was performed, confirming the correct operative eye and IOL power. Topical anesthesia was administered and ophthalmic povidone-iodine 5% was instilled into the conjunctival fornices. Lidocaine gel was applied to the cornea and the anali-ocular area was prepped with Betadine 10% solution and draped in the usual sterile fashion for intraocular surgery, including an aperture drape. A Tegaderm transparent film dressing was cut in half and used to cover the lashes and lid margins. Care was taken to sequester the lashes and lid margins under the Tegaderm dressing. A lid speculum was placed between the lids of the operative eye and the Vickey-Zheng operating microscope was maneuvered into position. Waldemar scissors were then used to make a conjunctival buttonhole approximately 6mm posterior to the limbus in the inferonasal quadrant. Blunt dissection was carried out to expose bare sclera, and a blunt-tipped sub-tenon?s anesthesia cannula was introduced and passed posteriorly along the globe where non-preserved plain lidocaine was injected into posterior sub-Tenon?s space. A sideport knife was used to make a paracentesis port superior/superiortemporally. Intraocular phenylephrine/lidocaine was injected into the anterior chamber. The anterior chamber was then filled with viscoelastic. A 2.4mm keratome knife was used to create a half-thickness groove at the limbus and then to construct a three-plane near-clear corneal tunnel extending 2.0mm into clear cornea in the temporal position. . A flap was raised on the anterior capsule and capsulorhexis forceps were used to complete a continuous curvilinear capsulorhexis of 5.5 mm. Balanced salt solution was then used to perform cortical cleaving hydrodissection and nuclear hydrodelineation until the lens could be freely rotated within the capsular bag. The lens nucleus was then disassembled and removed within the capsular bag and iris plane using phacoemulsification. Residual cortical material was removed using the 45-degree angled silicone I/A tip with 0.3mm port. The posterior capsule was carefully polished to remove as much residual lens epithelial cells as safely possible. The capsular bag was then inflated and the anterior chamber deepened with viscoelastic. The lens implant described above was inserted into the capsular bag using the TIMUR Parkman Injector. A Kuglen hook was used to dial the IOL into position. Residual viscoelastic was then removed first from posterior to the IOL, then from the anterior chamber using the I/A handpiece. The lens implant was noted to center nicely within the capsular bag. The incisions were stromally hydrated, and the anterior chamber was reformed using BSS. Then 0.5cc of moxifloxacin 1.0mg/ml were injected into the capsular bag and anterior chamber. The incisions were checked with a Weck spear and found to be secure. Several drops of ophthalmic povidone-iodine 5% were then applied to the eye followed by two drops of Imprimis combination prednisolone/moxifloxacin/nepafenac solution. The drapes were removed and a clear plastic protective eye shield was placed over the eye. The patient was then returned to Same Day Surgery in stable condition.
[2021-05-13 13:11] VITALS: BP 142/76; PULSE 81; RESP 16; TEMP 36.3; O2SAT 92
== END 2021-05-13 13:18 | disposition home or self-care (01) ==
PROVIDERS: PCP Nurse Practitioner Family; Visit Provider Ophthalmology
PROC: (CPT 66984; principal; 2021-05-13 12:00)
DX: H25.12 Age-related nuclear cataract, left eye (principal); G47.33 Obstructive sleep apnea (adult) (pediatric); I10 Essential (primary) hypertension; J44.9 Chronic obstructive pulmonary disease, unspecified
CPT/HCPCS: 66984; V2632

== ENCOUNTER 2021-05-27 07:19 | Day surgery (SDC) | payer MEDICAID, SELFPAY ==
[2021-05-27 07:47] VITALS: BP 149/77; PULSE 78; RESP 16; TEMP 37.1; O2SAT 92
[2021-05-27] MEDS: Tropicam./Phenyleph. (1/2.5%) 5 ML BTL OD ×3 (07:55→08:07)
--- NOTE | 2021-05-27 08:33 | ANES.PREOP_ITS ---
General Info Date of Service Date Performed: 05/27/21 Height: 5 ft 1 in Weight: 96.1 kg Body Mass Index (BMI): 40.0 Surgical Procedure: Operation Date: 05/27/21 09:10 Proposed Procedures Side Surgeon p Cataract Extraction with IOL Implant Right Fransisco Dumont MD Meds Allergies and Home Medications Allergies Allergy/AdvReac Type Severity Reaction Status Date / Time Sulfa (Sulfonamide Allergy Severe HIVES; RASH Verified 05/27/21 07:43 Antibiotics) bupropion AdvReac Severe HIGH BLOOD Verified 05/27/21 07:43 PRESSURE erythromycin base AdvReac Intermediate YEAST Verified 05/27/21 07:43 INFECTIONS lisinopril AdvReac Mild cough Verified 05/27/21 07:43 Home Medication Medication Instructions Recorded calcium citrate 200 mg (950 mg) 500 mg PO DAILY tab 09/10/18 tablet cholecalciferol (vitamin D3) 75 5,000 unit PO DAILY tab 09/10/18 mcg (3,000 unit) tablet albuterol sulfate 90 mcg/actuation 2 puff INHALATION Q4H PRN PRN #8.5 06/06/20 aerosol inhaler gm albuterol sulfate 2.5 mg IH QID PRN #420 ml 02/13/21 amlodipine 5 mg tablet 5 mg PO DAILY #90 tab-cap 02/13/21 loratadine 10 mg tablet 10 mg PO DAILY #90 tab 02/13/21 metoprolol tartrate 50 mg tablet 25 mg PO BID #90 tab-cap 02/13/21 trazodone 100 mg tablet 100 mg PO HS #90 tab 02/13/21 furosemide 20 mg tablet 20 mg PO QAM PRN #90 tab 05/02/21 paroxetine HCl 30 mg tablet 30 mg PO DAILY #90 tab-cap 05/02/21 propylene glycol [Systane Complete] 1 drp OPHTHALMIC (EYE) TID PRN 05/13/21 cyanocobalamin (vitamin B-12) 1,000 mcg PO DAILY 05/24/21 [Vitamin B-12] Current Visit Medications: Current Medications Generic Name Dose Route Start Last Admin Trade Name Freq PRN Reason Stop Dose Admin Acetaminophen 1,000 mg 05/27/21 06:00 Acetaminophen 500 Mg Tab PO Q4H PRN PRN Miscellaneous Medication 0 ml 05/27/21 06:00 Prednisolone 1%, Moxifloxacin 0.5%, Nepafenac 0.1% 5ml Btl OD DIRECTED [facility] Miscellaneous Medication 0 ml 05/27/21 06:00 05/27/21 08:07 Tropicam./Phenyleph. (1/2.5%) 5 Ml Btl OD 1 drp DIRECTED JOY Administration Tetracaine HCl 0 ml 05/27/21 06:00 Tetracaine 0.5% 4 Ml Btl OD DIRECTED [facility] PFSH Active Problems Active Problems: Problem Status Onset Code Cortical cataract of right eye H26.9 Nuclear sclerotic cataract of right eye H25.11 COPD with exacerbation J44.1 DVT prophylaxis [id number] Hypertension, essential, benign I10 Discharge planning issues Z02.9 Depressive disorder 05/11/13 F32.9 Family history of breast cancer 04/11/15 Z80.3 Family history of breast cancer in mother 04/27/18 Z80.3 Pneumonitis 03/24/18 J18.9 Polyp of colon 05/11/13 K63.5 Smoker 05/11/13 F17.200 Family history of diabetes mellitus Z83.3 Fatigue R53.83 Vitamin D deficiency E55.9 Lateral epicondylitis of both elbows 04/16/16 M77.11, M77.12 Bilateral carpal tunnel syndrome 04/16/16 G56.03 Pedal edema R60.0 Ascending aorta dilatation I77.810 Mitral regurgitation I34.0 Nuclear sclerotic cataract of left eye H25.12 Cortical cataract of left eye H26.9 Chest pain R07.9 Dyspnea R06.00 Essential hypertension 11/08/13 I10 Chronic obstructive pulmonary disease 04/27/18 J44.9 Medical History Medical History Chest pain Per pt. states she had a full work and didn't find anything. Chronic obstructive pulmonary disease (04/27/18) Depression Dyspnea Essential hypertension (11/08/13) Mendy's thyroiditis (06/04/18) Hx of appendicitis Obesity (05/11/13) Obstructive sleep apnea syndrome (05/11/13) per pt. states a mild form Osteoporosis Peripheral neuralgia Surgical History Surgical History History of cataract surgery History of section (04/16/16) History of hysterectomy with oophorectomy (04/16/16) History of tonsillectomy (04/16/16) Hx of appendectomy Hx of section x3 Tobacco Smoking/Tobacco Use Status: Former Tobacco Use Tobacco: How many years used: 30 Passive smoking exposure: Yes Second hand exposure: No Alcohol Alcohol Intake: former Substance Use Substance use: Never Substance use type: does not use Vital Signs and Lab Results Vital Signs Most Recent Vital Signs in EMR: Most Recent Vital Signs Temp Pulse Resp BP Pulse Ox 37.1 C 78 16 149/77 H 92 05/27/21 07:47 05/27/21 07:47 05/27/21 07:47 05/27/21 07:47 05/27/21 07:47 Lab Results Blood Type / Crossmatch: No Data to Display Complete Blood Count: No Data to Display Complete Metabolic Panel: No Data to Display Liver Function Panel: No Data to Display Coagulation Panel: No Data to Display Cardiac Panel: No Data to Display Arterial Blood Gas: No Data to Display Venous Blood Gas: No Data to Display Pancreas Panel: No Data to Display Thyroid Panel: No Data to Display Infectious Disease: No Data to Display Blood Cultures: No Data to Display Toxicology Panel: No Data to Display Imaging and Studies Imaging and Studies EKG Summary: 06/06/2020 Exam: Resting ECG Patient Location: O HR:71 bpm ECG Measurements Heart Rate 71 AXIS UT 172 P 60 QRSd 101 QRS 8 QT 450 T53 QTc 491 <Conclusion> Sinus rhythm...normal P axis, V-rate 60- 99 Stress Test Summary: 06/11/2020 Stress ECG Conclusion 1. Resting electrocardiogram was within normal limits. 2. Patient exercised on the Pilo protocol and completed a workload of 5.45 METS. She achieved 861% of predicted heart rate for age 3. Normal blood pressure response to exercise. Blunted heart rate response to exercise 4. Electrocardiographically the test was nondiagnostic due to inadequate heart rate 5. Sporadic PVCs were seen Echocardiogram Summary: 07/03/2020 Conclusion Left Ventricle : The left ventricle is normal size. The left ventricular systo lic function is normal. The left ventricular ejection fraction is within the normal range. There is normal left ventricular wall thickness. There is normal LV segmental wall motion. Diastolic function is normal. LVEF is 60%. Right Ventricle : The right ventricle is normal size. The right ventricular systolic function is normal. The RVSP is 26 mmHg. Atria : The left atrium size is normal. The right atrium size is normal. Mitral Valve : The mitral valve is normal in structure. No evidence of mitral valve stenosis. Mild to moderate mitral regurgitation. Great Vessels : The ascending aorta is mildly dilated 3.3cm. Aortic arch is normal in caliber. IVC is normal in size and collapses >50% with inspiration. There is no prior study available for comparison. Pulmonary Function Summary: 05/25/2020 Impression Normal spirometry, no bronchodilator response. Clinical correlation recommended Clinical Correlation therefore is recommended. Anesthesia Assessment and Plan Anesthesia History Personal History: No History of Anesthesia Complications Family History: No Family History of Anesthesia Complications Exercise Tolerance Exercise Tolerance: Metabolic Equivalents>4 Pertinent Negatives Pertinent Negatives: No Symptoms of GERD Cardiac & Pulmonary Exam Cardiac Exam: Normal S1/S2 Heart Sounds Pulmonary Exam: Clear Bilateral Breath Sounds Airway Exam Known Difficult Airway: No Mallampati Class: 2 Mouth Opening: Normal (> 3cm) Thyromental Distance: Greater than 3 cm Neck Range of Motion: Full ROM Neck Circumference: Normal Teeth Condition: Removable Dentures/Plates Upper and Removable Dentures/Plates Lower ASA Classification ASA Score: ASA 2 Emergency Case?: No NPO Status NPO Status: NPO Clears >2 hours, Solids >8 hours Anesthesia Plan Resuscitation Status: Full Code Anesthesia Technique: MAC Anesthesia Airway Planned: Natural Airway Monitors Used: Standard Monitors
[2021-05-27 09:04] VITALS: BMI 40.0
[2021-05-27] MEDS: Tetracaine 0.5% 4 ML BTL OD (09:25)
[2021-05-27] MEDS: Balanced Salt Soln.-PLUS 500 ML BAG (09:25)
[2021-05-27] MEDS: Duovisc Viscoelastic System EACH 1 EACH (09:26)
[2021-05-27] MEDS: Lidocaine 1% Pres-Free 5 ML VIAL (09:26)
[2021-05-27] MEDS: Lidocaine 2% Jelly 6 ML SYR (09:27)
[2021-05-27] MEDS: Povidone-Iodine Ophth 30 ML BTL (09:28)
--- NOTE | 2021-05-27 09:46 | W.PM.DSUDISC ---
Discharge Plan Disposition Patient Disposition: HOME Condition: Good Discharge Details Reason For Visit: Cataract Attending Provider: Fransisco Dumont Primary Care Provider: Garrett Chan Home Meds and New Rx's Prescriptions: No Action calcium citrate [Calcitrate] 200 mg (950 mg) tablet 500 mg PO DAILY RF: 0 cholecalciferol (vitamin D3) 3,000 unit tablet 5,000 unit PO DAILY RF: 0 furosemide 20 mg tablet 20 mg PO QAM PRN (Reason: edema) Qty: 90 RF: 2 paroxetine HCl 30 mg tablet 30 mg PO DAILY Qty: 90 RF: 3 albuterol sulfate [ProAir HFA] 90 mcg/actuation HFA aerosol inhaler 2 puff Inhalation Q4H PRN PRN (Reason: shortness of breath or wheezing) Qty: 8.5 RF: 3 albuterol sulfate 2.5 mg /3 mL (0.083 %) solution for nebulization 2.5 mg IH QID PRN (Reason: shortness of breath or wheezing) Qty: 420 RF: 3 amlodipine 5 mg tablet 5 mg PO DAILY Qty: 90 RF: 4 loratadine 10 mg tablet 10 mg PO DAILY Qty: 90 RF: 3 metoprolol tartrate 50 mg tablet 25 mg PO BID Qty: 90 RF: 3 trazodone 100 mg tablet 100 mg PO HS Qty: 90 RF: 3 cyanocobalamin (vitamin B-12) [Vitamin B-12] 1,000 mcg Tablet 1,000 mcg PO DAILY RF: 0 Systane Complete 0.6 % Drops 1 drp OPHTHALMIC (EYE) TID PRNRF: 0 Discharge Instructions Stand Alone Forms: Post-op Topical Cataract, Azul Beaver (DSU) Discharge Orders Discharge Orders: Discharge Order (Routine); Ordered 05/27/21 Ordered By: Fransisco Dumont DS: Diagnosis Discharge Diagnosis (1) Cortical cataract of right eye: Status: Resolved (2) Nuclear sclerotic cataract of right eye: Status: Resolved
[2021-05-27 09:48] VITALS: BP 159/89; PULSE 80; RESP 16; TEMP 36.5; O2SAT 94
--- NOTE | 2021-05-27 09:54 | W.ANESPOSTOP ---
Postoperative Evaluation Date, Time and Location Date Performed: 05/27/21 Time Performed: 09:54 Patient Location: Day Surgery Unit Vital Signs Most Recent Imported Vital Signs: Most Recent Vital Signs Temp Pulse Resp BP Pulse Ox 37.1 C 78 16 149/77 H 92 05/27/21 07:47 05/27/21 07:47 05/27/21 07:47 05/27/21 07:47 05/27/21 07:47 Most Recent Manually Entered Vital Signs: Adult Blood Pressure: 159/89 Heart Rate: 80 Respirations: 16 Oxygen Saturation (%): 93 Temperature (C): 36.5 C Pain Score (0-10 Scale): 0 Pain Score Most Recent Pain Score: Most Recent Pain Score Pain Level 0 05/27/21 07:47 Assessment Mental Status: Awake (Alert & Oriented to Patient Baseline) Airway and Respiratory Function: Patent airway with normal (patient baseline) respiratory exam Cardiovascular Function: Hemodynamically Stable Hydration Status: Adequately Hydrated Nausea & Vomiting: No Nausea or Vomiting Pain: Pt. Denies Any Pain Peripheral Nerve Block: Patient did not receive a nerve block
[2021-05-27 09:56] VITALS: BP 159/89; PULSE 80; RESP 16; TEMPC 36.5; O2SAT 93
[2021-05-27 10:17] VITALS: BP 141/81; PULSE 77; RESP 16; TEMP 36.6; O2SAT 94
--- NOTE | 2021-05-27 11:24 | W.PM.OP ---
Date of service: 05/27/21 Time of Service: 11:24 Operative Note Operative Note DATE OF PROCEDURE: 05/27/21 PRE-OP DIAGNOSIS: Nuclear/cortical cataract, right eye POST-OP DIAGNOSIS: same PROCEDURE: Cataract extraction using phacoemulsification with intraocular lens implant, right eye SURGEON: Fransisco Dumont ANESTHESIA TYPE: Local By Surgeon and MAC Refer to Anesthesia Record ESTIMATED BLOOD LOSS: 0 PATHOLOGY: none sent COMPLICATIONS: None Patient was transported to: same day Patient's condition: stable Implants: Beni and [employer]i [employer] / [employer] Tecnis ZCB00 intraocular lens Indications: Progressive decreased vision due to cataract, right eye Procedure Description: CATARACT SURGERY OPERATIVE REPORT PREOPERATIVE DIAGNOSIS: Nuclear/cortical cataract, right eye POSTOPERATIVE DIAGNOSIS: Same OPERATION: Cataract extraction using phacoemulsification with posterior chamber intraocular lens implant, right eye. IOL: IOL Evidence Specialist/Model: [employer] Vision / TIMUR Tecnis ZCB00 IOL Power: + 26.5 diopters IOL Serial Number: [id number] Optic Diameter: 6.0mm Haptic/Overall Diameter: 13.0mm PHACO INFO: Abdiaziz Conversion Innovationsurion Vision System with OZil and Active Fluidics Cumulative Dispersed Energy (CDE): 4.19 seconds SURGEON: Fransisco Dumont MD, HAYLEE ANESTHESIA: Monitored Anesthesia Care (MAC), with local sub-tenon's anesthetic infiltration COMPLICATIONS: None SPECIMENS: None INDICATIONS FOR PROCEDURE: Patient is a 60-year-old lady with history of diminished visual acuity and both eyes secondary to development of bilateral nuclear and cortical cataract. The option of cataract surgery was offered to the patient and she wished to proceed. She has already undergone cataract surgery in the left eye and is doing well postoperatively. She now presents for cataract surgery in the right eye. PROCEDURE: The correct surgical eye was identified and marked as the right eye and the pupil was dilated in the preoperative area using mydriatics and cycloplegics. The dilated pupil size was 0.0 mm. Oral sedation was administered in the form of an Imprimis MKO Melt (midazolam 3mg/ketamine 25mg/ondansetron 2mg). The patient was brought to the operating room where cardiopulmonary monitoring was instituted and surgical time-out was performed, confirming the correct operative eye and IOL power. Topical anesthesia was administered and ophthalmic povidone-iodine 5% was instilled into the conjunctival fornices. Lidocaine gel was applied to the cornea and the anali-ocular area was prepped with Betadine 10% solution and draped in the usual sterile fashion for intraocular surgery, including an aperture drape. A Tegaderm transparent film dressing was cut in half and used to cover the lashes and lid margins. Care was taken to sequester the lashes and lid margins under the Tegaderm dressing. A lid speculum was placed between the lids of the operative eye and the Vickey-Zheng operating microscope was maneuvered into position. Waldemar scissors were then used to make a conjunctival buttonhole approximately 6mm posterior to the limbus in the inferonasal quadrant. Blunt dissection was carried out to expose bare sclera, and a blunt-tipped sub-tenon?s anesthesia cannula was introduced and passed posteriorly along the globe where non-preserved plain lidocaine was injected into posterior sub-Tenon?s space. A sideport knife was used to make a paracentesis port inferiortemporally. Intraocular phenylephrine/lidocaine was injected into the anterior chamber. The anterior chamber was then filled with viscoelastic. A 2.4mm keratome knife was used to create a half-thickness groove at the limbus and then to construct a three-plane near-clear corneal tunnel extending 2.0mm into clear cornea in the superiortemporal position. . A flap was raised on the anterior capsule and capsulorhexis forceps were used to complete a continuous curvilinear capsulorhexis of 4.8 mm. The anterior chamber was noted to be quite shallow. Balanced salt solution was then used to perform cortical cleaving hydrodissection and nuclear hydrodelineation until the lens could be freely rotated within the capsular bag. The lens nucleus was then disassembled and removed within the capsular bag and iris plane using phacoemulsification. Residual cortical material was removed using the I/A handpiece. The posterior capsule was carefully polished to remove as much residual lens epithelial cells as safely possible. The capsular bag was then inflated and the anterior chamber deepened with viscoelastic. The lens implant described above was inserted into the capsular bag using the TIMUR Alutiiq Injector. A Kuglen hook was used to dial the IOL into position. Residual viscoelastic was then removed first from posterior to the IOL, then from the anterior chamber using the I/A handpiece. The lens implant was noted to center nicely within the capsular bag. The incisions were stromally hydrated, and the anterior chamber was reformed using BSS. Then 0.5cc of moxifloxacin 1.0mg/ml were injected into the capsular bag and anterior chamber. The incisions were checked with a Weck spear and found to be secure. Several drops of ophthalmic povidone-iodine 5% were then applied to the eye followed by two drops of Imprimis combination prednisolone/moxifloxacin/nepafenac solution. The drapes were removed and a clear plastic protective eye shield was placed over the eye. The patient was then returned to Same Day Surgery in stable condition.
== END 2021-05-27 10:26 | disposition home or self-care (01) ==
PROVIDERS: PCP Nurse Practitioner Family; Visit Provider Ophthalmology
PROC: (CPT 66984; principal; 2021-05-27 09:00)
DX: H25.11 Age-related nuclear cataract, right eye (principal); G47.33 Obstructive sleep apnea (adult) (pediatric); I10 Essential (primary) hypertension; E06.3 Autoimmune thyroiditis
CPT/HCPCS: 66984; V2632

== ENCOUNTER 2021-08-21 13:01 | Outpatient (REF) | payer MEDICAID, SELFPAY ==
[2021-08-22 14:14] LABS: COVID-19 RT-PCR UVMMC Result Negative (Negative)
== END 2021-08-21 13:02 | disposition home or self-care (01) ==
LOC: LBN 13:01
PROVIDERS: PCP Nurse Practitioner Family; Visit Provider Nurse Practitioner Family
DX: Z20.822 Contact with and (suspected) exposure to COVID-19 (principal); R05 Cough
CPT/HCPCS: U0003

== ENCOUNTER 2021-09-06 03:26 | Outpatient (CLI) | payer MEDICAID, SELFPAY ==
[2021-09-06 09:49] LABS: Hemoglobin A1C 6.4 % (<5.7)
[2021-09-06 11:05] LABS: ALT 38 U/L (14-59); AST 13 U/L (15-37); Alkaline Phosphatase 118 U/L (46-116); Anion Gap 8.8 mmol/L (3-11); BUN 8 mg/dL (7-18); Bilirubin, Total 0.5 mg/dL (0.2-1.0); CO2 28.2 mmol/L (21.0-32.0); CREATININE 0.8 mg/dL (0.55-1.02); Calcium 9.5 mg/dL (8.5-10.1); Calculated LDL 149 mg/dL (<100); Chloride 103 mmol/L (98-107); Cholesterol 217 mg/dL (<200); Glucose 130 mg/dL (74-106); HDL Cholesterol 52 mg/dL (40-60); Potassium 4.2 mmol/L (3.5-5.1); Sodium 140 mmol/L (136-145); TSH (W/Ref FT4) 1.14 uIU/mL (0.36-3.74); Triglyceride 84 mg/dL (<150)
== END 2021-09-06 03:27 | disposition home or self-care (01) ==
LOC: LBO 03:26
PROVIDERS: PCP Nurse Practitioner Family; Visit Provider Nurse Practitioner Family
DX: I10 Essential (primary) hypertension (principal); Z13.1 Encounter for screening for diabetes mellitus; Z13.220 Encounter for screening for lipoid disorders
CPT/HCPCS: 36415; 80053; 80061; 83036; 84443

== ENCOUNTER 2021-09-12 01:55 | Outpatient (CLI) | payer MEDICAID, SELFPAY ==
--- NOTE | 2021-09-12 07:30 | DI.MAMMO_ITS ---
Exam(s) MAMMO SCREENING EXAM: MAMMO SCREENING CLINICAL HISTORY: screening,Z12.39 TECHNIQUE: Mammograms were interpreted according to the usual protocol including computer analysis w Sporterpilot CAD system, tomosynthesis and C-view imaging. COMPARISON: FINDINGS: The breasts are of moderate density with fairly symmetrical distribution fibroglandular tissue. No c lumped microcalcification identified in either breast. Note is made of a 9 millimeter in diameter fa irly well-circumscribed nodule projected in the retroareolar portion of left breast, this is increase d in size in comparison with prior examinations. Additional evaluation with mammographic spot compre ssion views and breast ultrasound recommended to exclude malignancy. No other significant change see n. IMPRESSION: Additional mammographic views of the left breast and left breast ultrasound requested as described ab lorie to evaluate a retroareolar left breast mass. BI-RADS Category 0 - Assessment Incomplete: Need additional imaging evaluation Breast Density - Category B - Scattered areas of fibroglandular density
== END 2021-09-12 02:15 ==
PROVIDERS: PCP Nurse Practitioner Family; Visit Provider Nurse Practitioner Family
DX: Z12.31 Encounter for screening mammogram for malignant neoplasm of breast (principal); N63.32 Unspecified lump in axillary tail of the left breast; R92.8 Other abnormal and inconclusive findings on diagnostic imaging of breast
CPT/HCPCS: 77063; 77067

== ENCOUNTER 2021-09-24 00:59 | Outpatient (CLI) | payer MEDICAID, SELFPAY ==
--- NOTE | 2021-09-24 | DI.MAMMO_ITS ---
Exam(s) MG MAMMO SCREEN CALL BACK UNI US BREAST LT LIMITED EXAM: MG MAMMO SCREEN CALL BACK UNI CLINICAL HISTORY: F/U MAMMO, INCREASED SIZE LT BREAST NODULE. TECHNIQUE: Craniocaudal and mediolateral oblique Full Field Digital Mammography views of the breast with Computer Aided Diagnosis followed by Tomosynthesis and breast ultrasound. COMPARISON: US US BREAST LT LIMITED from 09/24/2021. Comparison is made with mammograms from 2012 t hrough 12 September 2021. FINDINGS: Mammography/Tomosynthesis: Masses: Persistent circumscribed 9 millimeter nodule central anterior left breast. Architectural Distortion: None seen. Microcalcifictions: No suspicious pleomorphic-type are seen. Skin Thickening/Nipple Retraction: None. Left breast US: Echotexture: Normal appearance of the glandular tissue. Shadowing: No suspicious foci. Cyst: 8 x 6 x 9 millimeter cyst 12 o'clock position 2 cm from the nipple. Adjacent 4 millimeter cyst . Solid lesions: None seen. Ductal dilation: None. IMPRESSION: 1. Nodule seen on mammogram corresponds to a cyst by ultrasound. No evidence of malignancy is noted. 2. Unless there is more urgent need, follow-up screening mammography is recommended, as per [place] [employer] guidelines. BI-RADS Category 2 - Benign Findings Breast Density - Category B - Scattered areas of fibroglandular density A negative radiographic report should not delay biopsy if a dominant or clinically suspicious mass is present. Up to ten percent of cancers are not identified on mammography. A negative report may reinforce clinical impression. Adenosis and dense breasts may obscure an underlying neoplasm. False positive reports average 6 to 10%. Patient will receive a letter notifying them of these results.
== END 2021-09-24 01:19 ==
PROVIDERS: PCP Nurse Practitioner Family; Visit Provider Nurse Practitioner Family
DX: Z12.31 Encounter for screening mammogram for malignant neoplasm of breast (principal); R92.8 Other abnormal and inconclusive findings on diagnostic imaging of breast; N60.02 Solitary cyst of left breast
CPT/HCPCS: 76642; 77063; 77067

== ENCOUNTER 2022-07-18 01:42 | Outpatient (CLI) | payer MEDICAID, SELFPAY ==
--- OUTSIDE RECORDS SUMMARY | 2022-07-18 01:49 | XMS_ITS | Encounter Summary ---
:1960 Author Organization [facility] Address [address] [place] [address] Care Team Providers Name Role Phone Unavailable Primary Care Provider Unavailable Encounter Details Date Type Department Care Team Description 03/12/2010 Results Only [facility] Yang Grigsby , Laboratory Services - [address] [place] [address] [place], [place] [address] [phone] Social History Tobacco Use Types Packs/Day Years Used Date Never Assessed Sex Assigned at Date Recorded Not on file documented as of this encounter Plan of Treatment Not on filedocumented as of this encounter Procedures Procedure Name Priority Date/Time Associated Diagnosis Comme [facility] SURGICAL PATHOLOGY Routine 03/12/2010 0:00 EDT Re sults for this procedure are i n the results section. documented in this encounter Results SURGICAL PATHOLOGY (03/12/2010 0:00 EDT) Pathology Report: SURGICAL PATHOLOGY REPORT ? [facility] Reports generated via [employer] interface contain original data; ? LAB however they are lacking the format of the original report. ? Caution should be taken when reading/interpreting unformatted reports. ? Name: ? KRISTIN, RADHA ? Accession #: ? [id number] ? : ? 1960 (Age: 49) ??F ? Collec t Date: ? 03/12/2010 ? Location: ? [facility] ? R eceive Date: ? 03/13/2010 ? Provider: YANG GABRIEL SON DO ? Copy to: KARIME PHILLIPS MD ? Final Pathologic Diagnosis: ? A. ?Colon, cecu m, polypectomy: ? 1. ?Tubular luis enrique noma. ? B. ?Colon, sigm oid, polypectomy: ? 1. ?? Tubular adenoma . ? Document reviewed and electr onically signed by: ? SOCORRO MOUNT MD ? Report ??Date: 03/15/2010 15 :16 ? By the signature above, the attending physician certifies that he/she has ? personally conducted a gross and/or microscopic examination of the described ? specimens and rendered or co nfirmed the above diagnosis. ? Specimen(s) Received: ? A. ?Cecal polyp ? B. ? Sigmoid polyp ? Clinical History: ? Hematochezia ? Gross Description: ? Received in Stacey' s labelled [place], Radha and cecal polyp is a ? hsieh-pink soft tissue measuri ng 0.3 x 0.2 x 0.2 cm. ??The specimen is submitted ?? entirely as (A). ? Received in Stacey's label led Kristin, Radha and sigmoid polyp is a ? hsieh-pink soft tissue measuri ng 0.2 x 0.2 x 0.2 cm. ??The specimen is submitted ?? entirely as (B). ??(ARobert duque)/ailynn ? End of Report ? Specimen Performing Organization Address City/State/ZIP Code Phon e Number [facility] [address] [place] [address] SERVICES [facility] [address] [place] [address] documented in this encounter Visit Diagnoses Not on filedocumented in this encounter
--- OUTSIDE RECORDS SUMMARY | 2022-07-18 01:49 | XMS_ITS | Clinical Summary ---
:1960 Author Organization [facility] Address [address] [place] [address] Care Team Providers Name Role Phone Jeffry Ulloa MD Primary Care Provider Unavailable Social History Tobacco Use Types Packs/Day Years Used Date Never Assessed Sex Assigned at Date Recorded Not on file Plan of Treatment Not on file Care Teams Mold Swabber Relationship Specialty Start Date End Date Jeffry Ulloa MD PCP - General 03/14/10
--- OUTSIDE RECORDS SUMMARY | 2022-07-18 01:49 | XMS_ITS | Encounter Summary ---
:1960 Author Organization [facility] Address [address] [place] [address] Care Team Providers Name Role Phone Jeffry Ulloa MD Primary Care Provider Unavailable Encounter Details Date Type Department Care Team Description 07/04/2002 Results Only [facility] - Trixie Chester, Chr istopher, conversion DO [address] [facility] [address] [facility] [address] [place] [address] [place] [address] (Wo rk) Social History Tobacco Use Types Packs/Day Years Used Date Never Assessed Sex Assigned at Date Recorded Not on file documented as of this encounter Plan of Treatment Not on filedocumented as of this encounter Procedures Procedure Name Priority Date/Time Associated Diagnosis Comme nts SURGICAL PATHOLOGY Routine 07/04/2002 0:00 EDT Re sults for this procedure are i n the results section. documented in this encounter Results SURGICAL PATHOLOGY (07/04/2002 0:00 EDT) Pathology Report: SURGICAL PATHOLOGY REPORT LETICIA SHAHID Reports generated via electronic interface contain loco ginal data; LAB however they are lacking the format of the original re port. Caution should be taken when reading/interpreting unfo rmatted reports. Name: ? RADHA FOSTER ? Accession #: ? [id number] ? : ? 1960 (Age: 42) ??F ? Collect Date: ? 07/04/2002 ? Location: ? [facility] ? Receive Date: ? 002 ? Provider: LESLY CHESTER DO Copy to: ALEN DANGELO MD ? Final Pathologic Diagnosis: A. ?Colon, sigmoid, biopsies: 1. ?No specific pathologic features. B. ?Rectum, biopsies: 1. ?No specific pathologic features. C. ?Colon, 15 cm, polyp, biopsy: 1. ?Hyperplastic polyp. Document reviewed and electronically signed by: Bozena Adames MD Report ??Date: 07/06/2002 08:41 By the signature above, the attending physician certif ies that he/she has personally conducted a gross and/or microscopic examin ation of the described specimens and rendered or confirmed the above diagnosi s. Specimen(s) Received: A. ?Sigmoid bx (#1) B. ?Rectal bx (#2) C. ?Polyp at 15 cm (#3) Clinical History: ? Heme positive stool, diarrhea Gross Description: ? Received in [facility] fixative labelled Menard and sigmoid bx are two hsieh-pink irregular soft tiss ue fragments measuring 0.3 x 0.2 x 0.2 cm and 0.6 x 0.2 x 0.2 cm. ??The specimen is entirely submitted as (A). Received in [facility] fixative labelled Maycol and rectal bx are three hsieh-pink friable soft tissue fragments ranging from 0.2 x 0.2 x 0.1 cm to 0.3 x 0.2 x 0.2 cm. ??The specimen is entirely submitted as (B). Received in [facility] fixa tive labelled Menard and polyp at 15 cm is a 0.3 x 0.3 x 0.2 cm soft tissue f ragment. ??The specimen is entirely submitted as (C). (Catarina Quijano)/viviane End of Report Specimen Performing Organization Address City/State/ZIP Code Phon e Number [facility] [address] [place] [address] SERVICES [facility] [address] [place] [address] documented in this encounter Visit Diagnoses Not on filedocumented in this encounter Care Teams Environmental Sampling Technician Relationship Specialty Start Date End Date Jeffry Ulloa MD PCP - General 03/14/10 documented as of this encounter
--- OUTSIDE RECORDS SUMMARY | 2022-07-18 01:49 | XMS_ITS | Encounter Summary ---
:1960 Author Organization [facility] Address [address] [place] [address] Care Team Providers Name Role Phone Jeffry Ulloa MD Primary Care Provider Unavailable Encounter Details Date Type Department Care Team Description 08/21/2021 Lab Requisition [facility] Outr Resulting Lab, Pathology & Laboratory Provider [facility] [address] [place], [place] [id number] Social History Tobacco Use Types Packs/Day Years Used Date Never Assessed Sex Assigned at Date Recorded Not on file documented as of this encounter Plan of Treatment Not on filedocumented as of this encounter Procedures Procedure Name Priority Date/Time Associated Diagnosis Comme nts COVID-19 TEST [facility] Today 08/21/2021 11:00 LAB PCR EDT COVID-19 TESTING Routine 08/21/2021 11:00 Results for this EDT procedure are i n the results section. documented in this encounter Results COVID-19 TEST [facility] LAB PCR (08/21/2021 11:00 EDT) Specimen Swab - Entire nasopharynx (body structur e) Performing Organization Address City/State/ZIP Code Phon e Number [facility] [address] [place] [address] SERVICES COVID-19 TESTING (08/21/2021 11:00 EDT) COVID-19 rt-PCR Negative Negative [facility] Result Comment: [facility] This test has not been FDA c leared or approved. This test has been authorized by FDA under an EUA for use by authorized laboratories. This test has been authorized only for detection of nucleic acid fro SERVICES m 2018-nCo, not for any oth er viruses or pathogens. This test is only authorized for the duration of the declaration that circumstances exist justifying the authorization of emergency use of in vitro d iagnostic tests for detectio n and/or diagnosis of 2019-nCoV under section 564(b)(1) of Act, 21 U.S.C ?? 360bbb-3(b) (1), unless the authorization is terminated or revoked sooner. Negative results do not prec lude 2019-nCoV infection and should not be used as the sole basis for treatment or other patient management decisions. Negative results must be combined with clinical observa tions, patient history, and epidemiological informatio n. Performed on the [employer] Fusion instrument Performing Lab [place] [facility] Lab [facility] SERVICES Specimen Swab Performing Organization Address City/State/ZIP Code Phon e Number [facility] [address] [place] [address] SERVICES documented in this encounter Visit Diagnoses Not on filedocumented in this encounter Care Teams Cardiac Monitor Technician Relationship Specialty Start Date End Date Jeffry Ulloa MD PCP - General 03/14/10 documented as of this encounter
--- OUTSIDE RECORDS SUMMARY | 2022-07-18 01:49 | XMS_ITS | Encounter Summary ---
:1960 Author Organization [facility] Address [address] [place] [address] Care Team Providers Name Role Phone Jeffry Ulloa MD Primary Care Provider Unavailable Encounter Details Date Type Department Care Team Description 05/22/2020 Lab Requisition [facility] Outr Resulting Lab, Pathology & Laboratory Provider [facility] [address] [place], [place] [address] Social History Tobacco Use Types Packs/Day Years Used Date Never Assessed Sex Assigned at Date Recorded Not on file documented as of this encounter Plan of Treatment Not on filedocumented as of this encounter Procedures Procedure Name Priority Date/Time Associated Diagnosis Comme nts COVID-19 TEST [facility] Today 05/22/2020 9:19 EDT LAB PCR COVID-19 TESTING Routine 05/22/2020 9:19 EDT Resu lts for this procedure are i n the results section. documented in this encounter Results COVID-19 TEST [facility] LAB PCR (05/22/2020 9:19 EDT) Specimen Swab - Entire nasopharynx (body structur e) Performing Organization Address City/State/ZIP Code Phon e Number [facility] [address] [place] [address] SERVICES COVID-19 TESTING (05/22/2020 9:19 EDT) COVID-19 rt-PCR Negative Negative [facility] Result Comment: [facility] This test has not been FDA c leared or approved. This test has been authorized by FDA under an EUA for use by authorized laboratories. This test has been authorized only for detection of nucleic acid fro SERVICES m 2019-nCoV, not for any oth er viruses or [...] and epidemiological informatio n. Performed on the [employer] Fusion instrument Performing Lab [place] [facility] Lab [facility] SERVICES Specimen Swab Performing Organization Address City/State/ZIP Code Phon e Number 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
[2022-07-18 15:30] LABS: ALT 37 U/L (14-59); AST 20 U/L (15-37); Albumin 3.7 g/dL (3.4-5.0); Alkaline Phosphatase 141 U/L (46-116); Anion Gap 7.5 mmol/L (3-11); BUN 9 mg/dL (7-18); Bilirubin, Total 0.6 mg/dL (0.2-1.0); CO2 32.5 mmol/L (21.0-32.0); CREATININE 0.9 mg/dL (0.55-1.02); Calcium 8.9 mg/dL (8.5-10.1); Chloride 102 mmol/L (98-107); Glucose 174 mg/dL (74-106); Potassium 3.2 mmol/L (3.5-5.1); Sodium 142 mmol/L (136-145)
== END 2022-07-18 01:43 | disposition home or self-care (01) ==
LOC: LBO 01:42
PROVIDERS: PCP Nurse Practitioner Family; Visit Provider Nurse Practitioner Family
DX: I10 Essential (primary) hypertension (principal)
CPT/HCPCS: 36415; 80053

== ENCOUNTER → 2022-09-15 01:56 | Outpatient (CLI) | payer MEDICAID, SELFPAY ==
--- NOTE | 2022-09-15 06:45 | DI.MAMMO_ITS ---
Exam(s) MAMMO SCREENING EXAM: MAMMO SCREENING CLINICAL HISTORY: screening Z12.39 TECHNIQUE: Bilateral full field digital CC and MLO mammographic images were obtained with 3D tomosyn thesis and utilizing computer aided detection (CAD). COMPARISON: Available for comparison. FINDINGS: Masses/Architectural Distortion: There are bilateral breast nodules present. The largest is in the r etroareolar region of the left breast. These appears stable no suspicious areas of architectural dis tortion are seen. There has been interval increase in size of a nodule in the lower outer quadrant o f the left breast. Microcalcifications: No suspicious pleomorphic-type are seen. Skin Thickening/Nipple Retraction: None. IMPRESSION: 1. Interval increase in size of a nodule in the lower outer quadrant of the left breast. 2. A left breast ultrasound is recommended for further evaluation. BI-RADS Category 0 - Assessment Incomplete: Need additional imaging evaluation Breast Density - Category B - Scattered areas of fibroglandular density Breast density category C or D implies that the patient has dense breast tissue. Dense breast tissue is very common and is not abnormal but dense breast tissue can make it harder to find cancer on a ma mmogram. Also, dense breast tissue may increase their breast cancer risk. This information about the result of the mammogram report was provided to the patient to raise their awareness. Use this report when you speak with the patient about their risks for breast cancer, which includes their family hist ory. At that time, you may recommend for more screening tests (Ultrasound or MRI) as they might be us eful based on their risk. A negative radiographic report should not delay biopsy if a dominant or clinically suspicious mass is present. Up to ten percent of cancers are not identified on mammography. A negative report may reinforce clinical impression. Adenosis and dense breasts may obscure an underlying neoplasm. False positive reports average 6 to 10%. Patient will receive a letter notifying them of these results.
== END ==
PROVIDERS: PCP Nurse Practitioner Family; Visit Provider Nurse Practitioner Family
DX: Z12.31 Encounter for screening mammogram for malignant neoplasm of breast (principal); R92.8 Other abnormal and inconclusive findings on diagnostic imaging of breast
CPT/HCPCS: 77063; 77067

== ENCOUNTER → 2022-09-24 02:26 | Outpatient (CLI) | payer MEDICAID, SELFPAY ==
--- NOTE | 2022-09-24 | DI.MAMMO_ITS ---
Exam(s) MG MAMMO SCREEN CALL BACK UNI US BREAST LT LIMITED EXAM: MG MAMMO SCREEN CALL BACK UNI CLINICAL HISTORY: F/U MAMMO, INTERVAL INCREASE IN SIZE LOWER OUTER QUAD NODULE LT,R92.8 TECHNIQUE: Mammograms were interpreted according to the usual protocol including computer analysis w [facility] CAD system, tomosynthesis and C-view imaging. COMPARISON: FINDINGS: Additional mammographic views of the left breast and left breast ultrasound are interpreted in conjun ction. These examinations were obtained to evaluate a new retroareolar mass of the left breast seen on recent mammogram. Spot compression views confirm a well-circumscribed retroareolar mass. Breast ultrasound shows a simple cyst corresponding in location to the retroareolar mass measuring about 10 millimeters in greatest diameter. No solid mass identified. IMPRESSION: No evidence of malignancy at this time. I would suggest that routine screening examinations resume w ith a bilateral mammogram in 12 months. BI-RADS Category 2 - Benign Findings Breast Density - Category B - Scattered areas of fibroglandular density
== END ==
PROVIDERS: PCP Nurse Practitioner Family; Visit Provider Nurse Practitioner Family
DX: R92.8 Other abnormal and inconclusive findings on diagnostic imaging of breast (principal)
CPT/HCPCS: 76642; 77063; 77067

== ENCOUNTER 2022-10-07 12:46 | Emergency (ER) | payer MEDICAID, SELFPAY ==
[2022-10-07 13:00] VITALS: BP 123/64; PULSE 79; RESP 18; TEMP 37; O2SAT 88
--- NOTE | 2022-10-07 13:00 | RT.EKG_ITS ---
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
--- NOTE | 2022-10-07 13:30 | DI.CT_ITS ---
Exam(s) CT CHEST PE CTA EXAM: CT CHEST PE CTA CLINICAL HISTORY: covid + hypoxia. TECHNIQUE: Imaging Protocol: Axial CT angiography was performed with multi-slice acquisition and mu lti-planar and/or 3D reconstructions. CONTRAST MATERIAL: Intravenous: Omnipaque 350 contrast volume:100 mL COMPARISON: CT HR CHEST/CHEST WO from 03/11/2018 FINDINGS: Tracheobronchial tree: Patent where visualized. Pulmonary parenchyma: No consolidation or dominant measurable mass. Mild centrilobular emphysema. Ca lcified granuloma are present. Pulmonary Arteries: No evidence of filling defect to suggest pulmonary emboli. Mediastinum and Briseyda: No dominant adenopathy or fluid collection. The esophagus is unremarkable. Visualized thyroid gland: Unremarkable. Pleura: No effusion or pneumothorax. Heart: The heart is not dilated. No coronary artery calcifications are seen. No pericardial effusion. Aorta: Thoracic aorta non-dilated. No evidence of dissection. Atherosclerosis is present. Upper abdomen: There is fatty infiltration of the liver. Soft tissues: Unremarkable. Bones: Within normal limits for the patient's age. IMPRESSION: 1. No evidence of pulmonary embolism, thoracic aortic dissection or aneurysm. 2. Findings were discussed with Randi Bucio at 3:10 p.m. on 10/07/2022. RADIATION DOSE DELIVERED: 483.08mGy.cm Total DLP DATA REPOSITORY: All CT scans at this facility are submitted to the National Radiology Data Registry (NRDR) Dose Index Registry (DIR) with the [employer] (A[employer]). RADIATION OPTIMIZATION: All CT scans at this facility use at least one of these dose optimization te chniques: automated exposure control; mA and/or kV adjustment per patient size (includes targeted exa ms where dose is matched to clinical indication); or iterative reconstruction.
[2022-10-07 13:49] LABS: Abs Immature Grans 0.03 10^3/uL (0.0-0.06); Absolute Basophil Count 0.01 10^3/uL (0.0-0.2); Absolute Eosinophil Count 0.02 10^3/uL (0.0-0.7); Absolute Lymphocyte Count 2.28 10^3/uL (1.2-3.4); Absolute Monocyte Count 0.35 10^3/uL (0.1-0.8); Absolute Neutrophil Count 1.89 10^3/uL (1.2-6.7); Basophils % 0.2; Eosinophils % 0.4; HCT 46.5 % (36.0-46.0); HGB 14.8 g/dL (11.2-15.7); Immature Grans % 0.7; Lymphocytes % 49.8; MCH 27.8 pg (27.0-33.0); MCHC 31.8 % (32.0-36.0); MCV 87 fL (80-95); Monocytes % 7.6; Neutrophils % 41.3; Platelet Count 184 10^3/uL (130-400); RBC 5.33 10^6/uL (3.93-5.22); RDW 13.2 % (11.7-14.6); RDW-SD 42.4 fL; WBC 4.58 10^3/uL (4.4-10.8)
[2022-10-07] MEDS: Dexamethasone 4 MG/ML VIAL 6 MG IVP (13:52)
[2022-10-07 14:12] LABS: ALT 31 U/L (14-59); AST 24 U/L (15-37); Albumin 3.6 g/dL (3.4-5.0); Alkaline Phosphatase 120 U/L (46-116); Anion Gap 7.9 mmol/L (3-11); BUN 8 mg/dL (7-18); Bilirubin, Total 0.5 mg/dL (0.2-1.0); CO2 34.1 mmol/L (21.0-32.0); CREATININE 0.9 mg/dL (0.55-1.02); Calcium 8.7 mg/dL (8.5-10.1); Chloride 101 mmol/L (98-107); Estimated GFR 71.39 (mL/min/1.73m2); Glucose 150 mg/dL (74-106); NT-proBNP 121 pg/mL (<300); Potassium 3.4 mmol/L (3.5-5.1); Sodium 143 mmol/L (136-145); Troponin I < 50 ng/L (<or=60)
[2022-10-07 14:23] LABS: Influenza A PCR Negative (Negative); Influenza B PCR Negative (Negative); RSV PCR Negative (Negative)
[2022-10-07 14:25] LABS: COVID-19 PCR Positive (Negative)
[2022-10-07] MEDS: Normal Saline Flush 10 ML SYR IVP (14:35)
[2022-10-07] MEDS: Omnipaque 350 MG/ML 100 ML BTL IJ (14:36)
[2022-10-07] MEDS: Albuterol/Ipratropium 3 ML UPD VIAL UPD (14:47)
--- NOTE | 2022-10-07 15:19 | W.ED.GENAD ---
Discharge Plan Disposition Patient Disposition: AGAINST MEDICAL ADVICE Condition: Serious Discharge Details Clinical Impression: COVID-19, Respiratory failure Primary Care Provider: Garrett Chan ED Provider: Randi Bucio Home Meds and New Rx's Prescriptions: New dexamethasone 6 mg tablet 6 mg PO ONCE 5 Days Qty: 5 0RF Continued calcium citrate [Calcitrate] 200 mg (950 mg) tablet 500 mg PO DAILY cholecalciferol (vitamin D3) 3,000 unit tablet 5,000 unit PO DAILY albuterol sulfate [ProAir HFA] 90 mcg/actuation HFA aerosol inhaler 2 puff Inhalation Q4H PRN PRN (Reason: shortness of breath or wheezing) Qty: 8.5 3RF Rx Instructions: Dispense #3 inhalers. use with spacer as directed. ascorbate calcium (vitamin C) 500 mg tablet 500 mg PO DAILY albuterol sulfate 2.5 mg /3 mL (0.083 %) solution for nebulization 2.5 mg IH QID PRN (Reason: shortness of breath or wheezing) Qty: 420 3RF fluticasone propion-salmeterol [Advair Diskus] 500-50 mcg/dose blister with device 1 inh inhalation BID Qty: 60 4RF furosemide 20 mg tablet 20 mg PO QAM PRN (Reason: edema) Qty: 90 2RF Label Comments: 05/13/21 Pt reports needs to shredder picker prescription loratadine 10 mg tablet 10 mg PO DAILY Qty: 90 3RF amlodipine 5 mg tablet 5 mg PO DAILY Qty: 90 4RF paroxetine HCl 30 mg tablet 30 mg PO DAILY Qty: 90 3RF metoprolol tartrate 50 mg tablet 25 mg PO BID Qty: 90 3RF trazodone 100 mg tablet 100 mg PO HS Qty: 90 3RF prednisone 20 mg tablet 40 mg PO DAILY Qty: 10 0RF Rx Instructions: Take 2 tablets daily for 5 days cyanocobalamin (vitamin B-12) [Vitamin B-12] 1,000 mcg Tablet 1,000 mcg PO DAILY Systane Complete 0.6 % Drops 1 drp OPHTHALMIC (EYE) TID PRN Discharge Instructions Instructions: Viral Syndrome (ED) Additional Instructions: We are recommending a stay in the hospital for admission you have declined admission You have declined, I recommend keeping an eye on your oxygen levels, please follow-up with your doctor closely and return tomorrow and the following day for remdesivir infusions Take the steroids, you received a dose today, take it for the next several days, there is a prescription to your pharmacy Please return immediately with new or worsening complaints Referrals: Garrett Chan FINANCIAL PLANNING CONSULTANT [Primary Care Provider] - Discharge Data Discharge Date/Time-TO BE ENTERED AT DEPARTURE: 10/07/22 17:33 Medical Decision Making Patient have hypoxic, with ambulation she desats to 85% on room air, with 1 to 2 L of oxygen she has 94 to 95% Her baseline oxygenation is around 96%, she has a pulse oximeter at home She likely on day 7 of her COVID symptoms. She had a positive test on Thursday after surgery. She does smoke tobacco on a daily basis. She is vaccinated x2 for COVID. She denies any chest discomfort CTA per radiology interpretation my review is negative for acute abnormality Patient is notably hypoxic, she is fully alert, oriented, decisional capacity, she is declining any admission at this time She is agreeable to receive remdesivir, she will return for subsequent 2days on 06/07 and 06/08 Medical Records Medical records reviewed: Yes I reviewed the patient's medical records. Lab Data Lab results reviewed: Yes I reviewed the patient's lab results. HPI General Date/Time Provider Initiated Documentation: 10/07/22 12:59. HPI Narrative: 62-year-old female with history of COVID-19 x7 days presents with hypoxia at home, between 78% and 80%. She denies any associated chest discomfort. She feels quite dyspneic with any sort of exertion. She denies any fever. She has had some intermittent chills and myalgias. She is vaccinated x2 for COVID without booster. Denies any prior history of coagulopathy. Denies any calf pain or swelling. Denies any falls or injuries. Related Data Home Medications Medication Instructions Recorded Confirmed calcium citrate 200 mg (950 mg) 500 mg PO DAILY 09/10/18 05/14/22 tablet (Calcitrate) cholecalciferol (vitamin D3) 75 5,000 unit PO DAILY 09/10/18 05/14/22 mcg (3,000 unit) tablet propylene glycol 0.6 % eye drops 1 drp ophthalmic (eye) TID PRN 05/13/21 05/14/22 (Systane Complete) cyanocobalamin (vitamin B-12) 1,000 mcg PO DAILY 05/24/21 05/14/22 1,000 mcg tablet (Vitamin B-12) albuterol sulfate 2.5 mg/3 mL 2.5 mg (3 mL) inhalation QID PRN 08/21/21 05/14/22 (0.083 %) solution for nebulization shortness of breath or wheezing #420 mL fluticasone 500 mcg-salmeterol 50 1 inh inhalation BID #60 ea 08/21/21 05/14/22 mcg/dose blistr powdr for inhalation (Advair Diskus) furosemide 20 mg tablet 20 mg PO QAM PRN edema #90 tabs 10/17/21 05/14/22 ascorbate calcium (vitamin C) 500 500 mg PO DAILY 11/08/21 05/14/22 mg tablet loratadine 10 mg tablet 10 mg PO DAILY #90 tabs 01/27/22 05/14/22 amlodipine 5 mg tablet 5 mg PO DAILY #90 tab-caps 03/28/22 05/14/22 metoprolol tartrate 50 mg tablet 25 mg PO BID #90 tab-caps 03/28/22 05/14/22 paroxetine HCl 30 mg tablet 30 mg PO DAILY #90 tab-caps 03/28/22 05/14/22 trazodone 100 mg tablet 100 mg PO HS #90 tabs 03/28/22 05/14/22 albuterol sulfate 90 mcg/actuation 2 puff inhalation Q4H PRN PRN 05/14/22 05/14/22 aerosol inhaler (ProAir HFA) shortness of breath or wheezing #8.5 grams prednisone 20 mg tablet 40 mg PO DAILY #10 tabs 06/12/22 dexamethasone 6 mg tablet 6 mg PO ONCE 5 days #5 tabs 10/07/22 Previous Rx's Medication Instructions Recorded albuterol sulfate 2.5 mg/3 mL 2.5 mg (3 mL) inhalation QID PRN 08/21/21 (0.083 %) solution for nebulization shortness of breath or wheezing #420 mL fluticasone 500 mcg-salmeterol 50 1 inh inhalation BID #60 ea 08/21/21 mcg/dose blistr powdr for inhalation (Advair Diskus) furosemide 20 mg tablet 20 mg PO QAM PRN edema #90 tabs 10/17/21 loratadine 10 mg tablet 10 mg PO DAILY #90 tabs 01/27/22 amlodipine 5 mg tablet 5 mg PO DAILY #90 tab-caps 03/28/22 metoprolol tartrate 50 mg tablet 25 mg PO BID #90 tab-caps 03/28/22 paroxetine HCl 30 mg tablet 30 mg PO DAILY #90 tab-caps 03/28/22 trazodone 100 mg tablet 100 mg PO HS #90 tabs 03/28/22 albuterol sulfate 90 mcg/actuation 2 puff inhalation Q4H PRN PRN 05/14/22 aerosol inhaler (ProAir HFA) shortness of breath or wheezing #8.5 grams prednisone 20 mg tablet 40 mg PO DAILY #10 tabs 06/12/22 dexamethasone 6 mg tablet 6 mg PO ONCE 5 days #5 tabs 10/07/22 Allergies Allergy/AdvReac Type Severity Reaction Status Date / Time Sulfa (Sulfonamide Allergy Severe HIVES; RASH Verified 05/14/22 11:00 Antibiotics) bupropion AdvReac Severe HIGH BLOOD Verified 05/14/22 11:00 PRESSURE erythromycin base AdvReac Intermediate YEAST Verified 05/14/22 11:00 INFECTIONS lisinopril AdvReac Mild cough Verified 05/14/22 11:00 General Stated Complaint: RespSymp GOOD: 3 Review of Systems All systems reviewed & are unremarkable except as noted in HPI and below PFSH All Active Problems (Updated 10/08/22 @ 18:11 by JULISSA Walton) COVID-19 (Acute) Respiratory failure (Acute) COVID-19 (Acute) Hypertension, essential, benign (Acute) Depressive disorder (Acute 05/11/13) Family history of breast cancer (Acute 04/11/15) Polyp of colon (Acute 05/11/13) 03/09 Colonoscopy: two tubular adenomas Smoker (Acute 05/11/13) Once in a while Family history of diabetes mellitus (Chronic) Fatigue (Chronic) Vitamin D deficiency (Chronic) Bilateral carpal tunnel syndrome (Acute 04/16/16) Right repaired surgically. Pedal edema (Acute) Ascending aorta dilatation (Acute) mild 3.3cm June 2020 Mitral regurgitation (Chronic) mild to moderate Dyspnea (Acute) Chronic obstructive pulmonary disease (Acute 04/27/18) Medical History (Updated 10/08/22 @ 18:11 by JULISSA Walton) Hx of appendicitis Obesity (05/11/13) Obstructive sleep apnea syndrome (05/11/13) per pt. states a mild form Osteoporosis Peripheral neuralgia Surgical History (Updated 05/14/22 @ 11:17 by Garrett Chan NP) Cortical cataract of right eye surgically repaired History of cataract surgery History of section (04/16/16) History of hysterectomy with oophorectomy (04/16/16) History of tonsillectomy (04/16/16) Hx of appendectomy Hx of section x3 Family History (Updated 05/28/20 @ 13:32 by Kylah Acevedo) Mother , 77 Diabetes Essential hypertension Heart disease Hyperlipidemia Lung cancer Breast cancer Liver cancer Father , 55 Substance abuse Lung cancer Sister Diabetes Depression Hyperlipidemia Asthma Sister , 32 Diabetes Depression Heart disease Hyperlipidemia Sister Essential hypertension Depression Hyperlipidemia Brother Substance abuse Depression Hyperlipidemia Alcohol abuse Brother Hyperlipidemia Brother Alcohol abuse Substance abuse Maternal Grandfather , 86 Diabetes Essential hypertension Heart disease Hyperlipidemia Lung cancer Maternal Grandmother , 54 Breast cancer Sister Depression Son Substance abuse Alcohol abuse Son Substance abuse Alcohol abuse Daughter Depression Paternal Grandfather No problems noted. Paternal Grandmother No problems noted. 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 Pets and animals: Yes Pets and animals: cat(s) Sexually active: No Do you think of yourself as: straight/heterosexual What is your relationship status?: How often do you talk on the phone with friends or family?: twice per week How often do you get together with friends or relatives?: once per week How often do you attend rastafarian or denominational services?: decline to answer Do you belong to any clubs or organized social groups?: no Panel score (0-1 are the most socially isolated patients): 1 What type of physical activity do you participate in: walking Duration: decline to answer Frequency: decline to answer Sveta/Taoist: No preference Special sveta needs: No Seatbelt use: always Helmet use: Yes Helmet use: sometimes Drive intox or ride w/intox commercial front load driver: No Do you feel safe at home: Yes Do you feel safe in your relationship?: Yes Additional Social history: lives alone Exam Const General: cooperative, comfortable and no acute distress HENMT Head: normal to inspection Resp Other: Mildly tachypneic, inspiratory and expiratory wheezes, Cardio Rate: regular rate Rhythm: regular rhythm GI Inspection: normal to inspection Course Vital Signs Vital signs: Vital Signs Temperature 37 C 10/07/22 13:00 Pulse 79 10/07/22 13:00 Respiratory Rate 18 10/07/22 13:00 Blood Pressure 123/64 10/07/22 13:00 Pulse Oximetry 88 L 10/07/22 13:00 Temperature 37 C 10/07/22 13:00 Temperature Source Tympanic 10/07/22 13:00 Pulse 79 10/07/22 13:00 Respiratory Rate 18 10/07/22 13:00 Respiratory Effort 10/07/22 13:05 Respiratory Depth Normal 10/07/22 13:05 Blood Pressure 123/64 10/07/22 13:00 Blood Pressure Position Supine 10/07/22 13:00 Pulse Oximetry 88 L 10/07/22 13:00 Oxygen Delivery Method Room Air 10/07/22 13:00 Oxygen Flow Rate 0 10/07/22 13:00 Pain Level 10 10/07/22 13:00 Lab/Test Results Lab/Test Results: Laboratory Tests Range/Units 10/07/22 10/07/22 10/07/22 13:34 13:36 13:36 WBC (4.4-10.8) 10^3/uL 4.58 RBC (3.93-5.22) 10^6/uL 5.33 H Hgb (11.2-15.7) g/dL 14.8 Hct (36.0-46.0) % 46.5 H MCV (80-95) fL 87 MCH (27.0-33.0) pg 27.8 MCHC (32.0-36.0) % 31.8 L RDW (11.7-14.6) % 13.2 Plt Count (130-400) 10^3/uL 184 MPV (8.0-11.0) fL 11.0 Immature Gran % 0.7 Neutrophils % 41.3 Lymphocytes % 49.8 Monocytes % 7.6 Eosinophils % 0.4 Basophils % 0.2 Nucleated RBC % (0.0-0.3) % 0.0 Absolute Neutrophils (1.2-6.7) 10^3/uL 1.89 Absolute Lymphocytes (1.2-3.4) 10^3/uL 2.28 Absolute Monocytes (0.1-0.8) 10^3/uL 0.35 Absolute Eosinophils (0.0-0.7) 10^3/uL 0.02 Absolute Basophils (0.0-0.2) 10^3/uL 0.01 Sodium (136-145) mmol/L 143 Potassium (3.5-5.1) mmol/L 3.4 L Chloride (98-107) mmol/L 101 Carbon Dioxide (21.0-32.0) mmol/L 34.1 H Anion Gap (3-11) mmol/L 7.9 BUN (7-18) mg/dL 8 Creatinine (0.55-1.02) mg/dL 0.9 Est GFR (CKD-EPI 2020) (mL/min/1.73m2) 71.39 Glucose (74-106) mg/dL 150 H Calcium (8.5-10.1) mg/dL 8.7 Total Bilirubin (0.2-1.0) mg/dL 0.5 AST (15-37) U/L 24 ALT (14-59) U/L 31 Alkaline Phosphatase (46-116) U/L 120 H Troponin I (<or=60) ng/L < 50 NT-Pro-B Natriuret Pep (<300) pg/mL 121 Total Protein (6.4-8.2) g/dL 7.0 Albumin (3.4-5.0) g/dL 3.6 COVID-19 Source Not Applicable SARS-CoV-2 (PCR) (Negative) Positive A Influenza Type A (PCR) (Negative) Negative Influenza Type B (PCR) (Negative) Negative RSV (PCR) (Negative) Negative
[2022-10-07] MEDS: REMDESIVIR 200 MG in Normal Saline 250 ML 250 MG IVPB (16:13)
== END 2022-10-07 17:33 | disposition left against medical advice (07) ==
PROVIDERS: Emergency Provider Physician Assistant; PCP Nurse Practitioner Family
DX: U07.1 COVID-19 (principal); J96.90 Respiratory failure, unspecified, unspecified whether with hypoxia or hypercapnia; F17.210 Nicotine dependence, cigarettes, uncomplicated; Z53.29 Procedure and treatment not carried out because of patient's decision for other reasons
CPT/HCPCS: 71275; 80053; 87637; 93005; 96365; 96375; 99284; 83880; 84484; 85025; 93010; J0248; J1100; J3490; J7620

== ENCOUNTER 2022-10-08 15:20 | Emergency (ER) | payer MEDICAID, SELFPAY ==
[2022-10-08 15:34] VITALS: BP 141/75; PULSE 80; RESP 20; TEMP 36.2; O2SAT 93
[2022-10-08] MEDS: REMDESIVIR 100 MG in Normal Saline 250 ML 250 MG IVPB (17:34)
--- NOTE | 2022-10-08 18:09 | W.ED.GENAD ---
Discharge Plan Disposition Patient Disposition: HOME Condition: Stable Discharge Details Clinical Impression: COVID-19 Primary Care Provider: Garrett Chan ED Provider: Randi Bucio Home Meds and New Rx's Prescriptions: Continued calcium citrate [Calcitrate] 200 mg (950 mg) tablet 500 mg PO DAILY cholecalciferol (vitamin D3) 3,000 unit tablet 5,000 unit PO DAILY albuterol sulfate [ProAir HFA] 90 mcg/actuation HFA aerosol inhaler 2 puff Inhalation Q4H PRN PRN (Reason: shortness of breath or wheezing) Qty: 8.5 3RF Rx Instructions: Dispense #3 inhalers. use with spacer as directed. ascorbate calcium (vitamin C) 500 mg tablet 500 mg PO DAILY albuterol sulfate 2.5 mg /3 mL (0.083 %) solution for nebulization 2.5 mg IH QID PRN (Reason: shortness of breath or wheezing) Qty: 420 3RF fluticasone propion-salmeterol [Advair Diskus] 500-50 mcg/dose blister with device 1 inh inhalation BID Qty: 60 4RF furosemide 20 mg tablet 20 mg PO QAM PRN (Reason: edema) Qty: 90 2RF Label Comments: 05/13/21 Pt reports needs to turkey picker prescription loratadine 10 mg tablet 10 mg PO DAILY Qty: 90 3RF amlodipine 5 mg tablet 5 mg PO DAILY Qty: 90 4RF paroxetine HCl 30 mg tablet 30 mg PO DAILY Qty: 90 3RF metoprolol tartrate 50 mg tablet 25 mg PO BID Qty: 90 3RF trazodone 100 mg tablet 100 mg PO HS Qty: 90 3RF prednisone 20 mg tablet 40 mg PO DAILY Qty: 10 0RF Rx Instructions: Take 2 tablets daily for 5 days cyanocobalamin (vitamin B-12) [Vitamin B-12] 1,000 mcg Tablet 1,000 mcg PO DAILY dexamethasone 6 mg tablet 6 mg PO ONCE 5 Days Qty: 5 0RF Systane Complete 0.6 % Drops 1 drp OPHTHALMIC (EYE) TID PRN Discharge Instructions Instructions: Viral Syndrome (ED) Additional Instructions: Please return tomorrow for her last dose of remdesivir, continue on the Decadron Monitor oxygen saturation return earlier should you have new or worsening complaints Referrals: Garrett Chan, POCKET SECRETARY ASSEMBLER [Primary Care Provider] - Discharge Data Discharge Date/Time-TO BE ENTERED AT DEPARTURE: 10/08/22 18:40 Medical Decision Making Patient received dose of remdesivir, asymptomatic, feeling marked improvement, oxygenation 92% on room air at time of reassessment Discharged home in stable condition with stable vital return tomorrow for 1 last dose of remdesivir Medical Records Medical records reviewed: Yes I reviewed the patient's medical records. Lab Data Lab results reviewed: Yes I reviewed the patient's lab results. HPI General Date/Time Provider Initiated Documentation: 10/08/22 15:40. HPI Narrative: This 62-year-old female with recent diagnosis of COVID-19, 8 days out from symptom onset with diagnosis of COVID on Thursday presents secondary to leaving AMA yesterday with hypoxia per patient. She been taking Decadron at home and states her oxygen saturations have been in the 90s today. Yesterday they were in the 80s which is why she presented. She left AGAINST MEDICAL ADVICE and to receive her first dose of remdesivir. She is presenting today for her second dose of remdesivir. She denies any current complaints. Related Data Home Medications Medication Instructions Recorded Confirmed calcium citrate 200 mg (950 mg) 500 mg PO DAILY 09/10/18 10/09/22 tablet (Calcitrate) cholecalciferol (vitamin D3) 75 5,000 unit PO DAILY 09/10/18 10/09/22 mcg (3,000 unit) tablet propylene glycol 0.6 % eye drops 1 drp ophthalmic (eye) TID PRN 05/13/21 10/09/22 (Systane Complete) cyanocobalamin (vitamin B-12) 1,000 mcg PO DAILY 05/24/21 10/09/22 1,000 mcg tablet (Vitamin B-12) albuterol sulfate 2.5 mg/3 mL 2.5 mg (3 mL) inhalation QID PRN 08/21/21 10/09/22 (0.083 %) solution for nebulization shortness of breath or wheezing #420 mL fluticasone 500 mcg-salmeterol 50 1 inh inhalation BID #60 ea 08/21/21 10/09/22 mcg/dose blistr powdr for inhalation (Advair Diskus) furosemide 20 mg tablet 20 mg PO QAM PRN edema #90 tabs 10/17/21 10/09/22 ascorbate calcium (vitamin C) 500 500 mg PO DAILY 11/08/21 10/09/22 mg tablet loratadine 10 mg tablet 10 mg PO DAILY #90 tabs 01/27/22 10/09/22 amlodipine 5 mg tablet 5 mg PO DAILY #90 tab-caps 03/28/22 10/09/22 metoprolol tartrate 50 mg tablet 25 mg PO BID #90 tab-caps 03/28/22 10/09/22 paroxetine HCl 30 mg tablet 30 mg PO DAILY #90 tab-caps 03/28/22 10/09/22 trazodone 100 mg tablet 100 mg PO HS #90 tabs 03/28/22 10/09/22 albuterol sulfate 90 mcg/actuation 2 puff inhalation Q4H PRN PRN 05/14/22 10/09/22 aerosol inhaler (ProAir HFA) shortness of breath or wheezing #8.5 grams prednisone 20 mg tablet 40 mg PO DAILY #10 tabs 06/12/22 10/09/22 dexamethasone 6 mg tablet 6 mg PO ONCE 5 days #5 tabs 10/07/22 10/09/22 Previous Rx's Medication Instructions Recorded albuterol sulfate 2.5 mg/3 mL 2.5 mg (3 mL) inhalation QID PRN 08/21/21 (0.083 %) solution for nebulization shortness of breath or wheezing #420 mL fluticasone 500 mcg-salmeterol 50 1 inh inhalation BID #60 ea 08/21/21 mcg/dose blistr powdr for inhalation (Advair Diskus) furosemide 20 mg tablet 20 mg PO QAM PRN edema #90 tabs 10/17/21 loratadine 10 mg tablet 10 mg PO DAILY #90 tabs 01/27/22 amlodipine 5 mg tablet 5 mg PO DAILY #90 tab-caps 03/28/22 metoprolol tartrate 50 mg tablet 25 mg PO BID #90 tab-caps 03/28/22 paroxetine HCl 30 mg tablet 30 mg PO DAILY #90 tab-caps 03/28/22 trazodone 100 mg tablet 100 mg PO HS #90 tabs 03/28/22 albuterol sulfate 90 mcg/actuation 2 puff inhalation Q4H PRN PRN 05/14/22 aerosol inhaler (ProAir HFA) shortness of breath or wheezing #8.5 grams prednisone 20 mg tablet 40 mg PO DAILY #10 tabs 06/12/22 dexamethasone 6 mg tablet 6 mg PO ONCE 5 days #5 tabs 10/07/22 Allergies Allergy/AdvReac Type Severity Reaction Status Date / Time Sulfa (Sulfonamide Allergy Severe HIVES; RASH Verified 10/09/22 08:49 Antibiotics) bupropion AdvReac Severe HIGH BLOOD Verified 10/09/22 08:49 PRESSURE erythromycin base AdvReac Intermediate YEAST Verified 10/09/22 08:49 INFECTIONS lisinopril AdvReac Mild cough Verified 10/09/22 08:49 General Stated Complaint: GenMedical GOOD: 4 Review of Systems All systems reviewed & are unremarkable except as noted in HPI and below PFSH All Active Problems (Updated 10/09/22 @ 10:12 by Nella Florence NP) COVID-19 (Acute) Respiratory failure (Acute) COVID-19 (Acute) Encounter for medication administration (Acute) Hypertension, essential, benign (Acute) Depressive disorder (Acute 05/11/13) Family history of breast cancer (Acute 04/11/15) Polyp of colon (Acute 05/11/13) 03/09 Colonoscopy: two tubular adenomas Smoker (Acute 05/11/13) Once in a while Family history of diabetes mellitus (Chronic) Fatigue (Chronic) Vitamin D deficiency (Chronic) Bilateral carpal tunnel syndrome (Acute 04/16/16) Right repaired surgically. Pedal edema (Acute) Ascending aorta dilatation (Acute) mild 3.3cm June 2020 Mitral regurgitation (Chronic) mild to moderate Dyspnea (Acute) Chronic obstructive pulmonary disease (Acute 04/27/18) Medical History Hx of appendicitis Obesity (05/11/13) Obstructive sleep apnea syndrome (05/11/13) per pt. states a mild form Osteoporosis Peripheral neuralgia Surgical History Cortical cataract of right eye surgically repaired History of cataract surgery History of section (04/16/16) History of hysterectomy with oophorectomy (04/16/16) History of tonsillectomy (04/16/16) Hx of appendectomy Hx of section x3 Family History Mother , 77 Diabetes Essential hypertension Heart disease Hyperlipidemia Lung cancer Breast cancer Liver cancer Father , 55 Substance abuse Lung cancer Sister Diabetes Depression Hyperlipidemia Asthma Sister , 32 Diabetes Depression Heart disease Hyperlipidemia Sister Essential hypertension Depression Hyperlipidemia Brother Substance abuse Depression Hyperlipidemia Alcohol abuse Brother Hyperlipidemia Brother Alcohol abuse Substance abuse Maternal Grandfather , 86 Diabetes Essential hypertension Heart disease Hyperlipidemia Lung cancer Maternal Grandmother , 54 Breast cancer Sister Depression Son Substance abuse Alcohol abuse Son Substance abuse Alcohol abuse Daughter Depression Paternal Grandfather No problems noted. Paternal Grandmother No problems noted. 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 Pets and animals: Yes Pets and animals: cat(s) Sexually active: No Do you think of yourself as: straight/heterosexual What is your relationship status?: How often do you talk on the phone with friends or family?: twice per week How often do you get together with friends or relatives?: once per week How often do you attend confucianist or synagogue services?: decline to answer Do you belong to any clubs or organized social groups?: no Panel score (0-1 are the most socially isolated patients): 1 What type of physical activity do you participate in: walking Duration: decline to answer Frequency: decline to answer Sveta/Taoist: No preference Special sveta needs: No Seatbelt use: always Helmet use: Yes Helmet use: sometimes Drive intox or ride w/intox tank truck driver: No Do you feel safe at home: Yes Do you feel safe in your relationship?: Yes Additional Social history: lives alone Exam Const General: cooperative, comfortable and no acute distress Resp Effort & Inspection: normal respiratory effort Auscultation: wheezes Cardio Rate: regular rate GI Inspection: normal to inspection Neuro General: patient alert and patient oriented x3 Course Vital Signs Vital signs: Vital Signs Temperature 36.2 C L 10/08/22 15:34 Pulse 80 10/08/22 15:34 Respiratory Rate 20 10/08/22 15:34 Blood Pressure 141/75 H 10/08/22 15:34 Pulse Oximetry 93 10/08/22 15:34 Temperature 36.2 C L 10/08/22 15:34 Temperature Source Tympanic 10/08/22 15:34 Pulse 80 10/08/22 15:34 Respiratory Rate 20 10/08/22 15:34 Respiratory Effort 10/08/22 17:22 Respiratory Depth Normal 10/08/22 17:22 Respiratory Pattern Normal 10/08/22 17:22 Blood Pressure 141/75 H 10/08/22 15:34 Blood Pressure Position Sitting 10/08/22 15:34 Pulse Oximetry 93 10/08/22 15:34 Oxygen Delivery Method Room Air 10/08/22 15:34 Oxygen Flow Rate 0 10/08/22 15:34
== END 2022-10-08 18:40 | disposition home or self-care (01) ==
PROVIDERS: Emergency Provider Physician Assistant; PCP Nurse Practitioner Family
DX: U07.1 COVID-19 (principal); Z53.20 Procedure and treatment not carried out because of patient's decision for unspecified reasons
CPT/HCPCS: 96365; 99284; J0248

== ENCOUNTER 2022-10-09 07:58 | Emergency (ER) | payer MEDICAID, SELFPAY ==
[2022-10-09 08:07] VITALS: BP 159/81; PULSE 73; RESP 20; TEMP 37.2; O2SAT 92
--- NOTE | 2022-10-09 08:12 | W.ED.GENAD ---
Discharge Plan Disposition Patient Disposition: HOME Condition: Stable Discharge Details Clinical Impression: COVID-19, Encounter for medication administration Primary Care Provider: Garrett Chan ED Provider: Nella Florence Home Meds and New Rx's Prescriptions: Continued calcium citrate [Calcitrate] 200 mg (950 mg) tablet 500 mg PO DAILY cholecalciferol (vitamin D3) 3,000 unit tablet 5,000 unit PO DAILY albuterol sulfate [ProAir HFA] 90 mcg/actuation HFA aerosol inhaler 2 puff Inhalation Q4H PRN PRN (Reason: shortness of breath or wheezing) Qty: 8.5 3RF Rx Instructions: Dispense #3 inhalers. use with spacer as directed. 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 loratadine 10 mg tablet 10 mg PO DAILY Qty: 90 3RF amlodipine 5 mg tablet 5 mg PO DAILY Qty: 90 4RF paroxetine HCl 30 mg tablet 30 mg PO DAILY Qty: 90 3RF metoprolol tartrate 50 mg tablet 25 mg PO BID Qty: 90 3RF trazodone 100 mg tablet 100 mg PO HS Qty: 90 3RF prednisone 20 mg tablet 40 mg PO DAILY Qty: 10 0RF Rx Instructions: Take 2 tablets daily for 5 days cyanocobalamin (vitamin B-12) [Vitamin B-12] 1,000 mcg Tablet 1,000 mcg PO DAILY dexamethasone 6 mg tablet 6 mg PO ONCE 5 Days Qty: 5 0RF Systane Complete 0.6 % Drops 1 drp OPHTHALMIC (EYE) TID PRN Discharge Instructions Instructions: COVID-19 (Coronavirus Disease 2019) (ED) Additional Instructions: You have received your third dose of remdesivir. Please continue to monitor your oxygen saturation at home. Follow up with primary care provider in 3-5 days. Return to ED sooner if any worsening or concerns. Increase oral fluids. Referrals: Garrett Chan, STR[employer]OR [Primary Care Provider] - 3 days Medical Decision Making 62-year-old female presents to the ER for her third dose of remdesivir IV. Patient has been seen here in the emergency department for last 2 days. She originally left AMA refused admission after being diagnosed with COVID-19 and found to be hypoxic. She reports that she been monitoring her oxygen saturation at home and has been running 93 to 94%. She is using albuterol inhalers and taking dexamethasone. 100 mg of remdesivir ordered. Patient does have albuterol neb at home and a spacer. She is currently taking dexamethasone. IV infusion is complete without incident. Patient was observed for approximately 30 to 45 minutes after infusion with no reaction. Instructed to follow-up with PCP continue with the neb and to continue monitoring her O2 sat. This text was generated using Echoing Green[employer] system, please disregard any oddities of phrase or misspellings. Medical Records Medical records reviewed: Yes I reviewed the patient's medical records. HPI General Mode of arrival: ambulatory. Date/Time Provider Initiated Documentation: 10/09/22 08:02. Limitations to Documentation: no limitations. Information obtained by: patient, RN notes reviewed and old records reviewed. HPI Narrative: 62-year-old female presents to the ER for her third dose of remdesivir IV. Patient has been seen here in the emergency department for last 2 days. She originally left AMA refused admission after being diagnosed with COVID-19 and found to be hypoxic. She reports that she been monitoring her oxygen saturation at home and has been running 93 to 94%. She is using albuterol inhalers and taking dexamethasone. Her last inhaler was approximately an hour ago. She does have expiratory wheezes noted throughout all lung jaramillo. Breathing is eupneic, she is satting 92% on room air here. Related Data Home Medications Medication Instructions Recorded Confirmed calcium citrate 200 mg (950 mg) 500 mg PO DAILY 09/10/18 10/09/22 tablet (Calcitrate) cholecalciferol (vitamin D3) 75 5,000 unit PO DAILY 09/10/18 10/09/22 mcg (3,000 unit) tablet propylene glycol 0.6 % eye drops 1 drp ophthalmic (eye) TID PRN 05/13/21 10/09/22 (Systane Complete) cyanocobalamin (vitamin B-12) 1,000 mcg PO DAILY 05/24/21 10/09/22 1,000 mcg tablet (Vitamin B-12) albuterol sulfate 2.5 mg/3 mL 2.5 mg (3 mL) inhalation QID PRN 08/21/21 10/09/22 (0.083 %) solution for nebulization shortness of breath or wheezing #420 mL fluticasone 500 mcg-salmeterol 50 1 inh inhalation BID #60 ea 08/21/21 10/09/22 mcg/dose blistr powdr for inhalation (Advair Diskus) furosemide 20 mg tablet 20 mg PO QAM PRN edema #90 tabs 10/17/21 10/09/22 ascorbate calcium (vitamin C) 500 500 mg PO DAILY 11/08/21 10/09/22 mg tablet loratadine 10 mg tablet 10 mg PO DAILY #90 tabs 01/27/22 10/09/22 amlodipine 5 mg tablet 5 mg PO DAILY #90 tab-caps 03/28/22 10/09/22 metoprolol tartrate 50 mg tablet 25 mg PO BID #90 tab-caps 03/28/22 10/09/22 paroxetine HCl 30 mg tablet 30 mg PO DAILY #90 tab-caps 03/28/22 10/09/22 trazodone 100 mg tablet 100 mg PO HS #90 tabs 03/28/22 10/09/22 albuterol sulfate 90 mcg/actuation 2 puff inhalation Q4H PRN PRN 05/14/22 10/09/22 aerosol inhaler (ProAir HFA) shortness of breath or wheezing #8.5 grams prednisone 20 mg tablet 40 mg PO DAILY #10 tabs 06/12/22 10/09/22 dexamethasone 6 mg tablet 6 mg PO ONCE 5 days #5 tabs 10/07/22 10/09/22 Previous Rx's Medication Instructions Recorded albuterol sulfate 2.5 mg/3 mL 2.5 mg (3 mL) inhalation QID PRN 08/21/21 (0.083 %) solution for nebulization shortness of breath or wheezing #420 mL fluticasone 500 mcg-salmeterol 50 1 inh inhalation BID #60 ea 08/21/21 mcg/dose blistr powdr for inhalation (Advair Diskus) furosemide 20 mg tablet 20 mg PO QAM PRN edema #90 tabs 10/17/21 loratadine 10 mg tablet 10 mg PO DAILY #90 tabs 01/27/22 amlodipine 5 mg tablet 5 mg PO DAILY #90 tab-caps 03/28/22 metoprolol tartrate 50 mg tablet 25 mg PO BID #90 tab-caps 03/28/22 paroxetine HCl 30 mg tablet 30 mg PO DAILY #90 tab-caps 03/28/22 trazodone 100 mg tablet 100 mg PO HS #90 tabs 03/28/22 albuterol sulfate 90 mcg/actuation 2 puff inhalation Q4H PRN PRN 05/14/22 aerosol inhaler (ProAir HFA) shortness of breath or wheezing #8.5 grams prednisone 20 mg tablet 40 mg PO DAILY #10 tabs 06/12/22 dexamethasone 6 mg tablet 6 mg PO ONCE 5 days #5 tabs 10/07/22 Allergies Allergy/AdvReac Type Severity Reaction Status Date / Time Sulfa (Sulfonamide Allergy Severe HIVES; RASH Verified 10/09/22 08:49 Antibiotics) bupropion AdvReac Severe HIGH BLOOD Verified 10/09/22 08:49 PRESSURE erythromycin base AdvReac Intermediate YEAST Verified 10/09/22 08:49 INFECTIONS lisinopril AdvReac Mild cough Verified 10/09/22 08:49 General Stated Complaint: GenMedical GOOD: 4 Review of Systems All systems reviewed & are unremarkable except as noted in HPI and below Respiratory Respiratory: Reports chest congestion and Reports cough PFSH All Active Problems (Updated 10/09/22 @ 10:12 by Nella Florence NP) COVID-19 (Acute) Respiratory failure (Acute) COVID-19 (Acute) Encounter for medication administration (Acute) Hypertension, essential, benign (Acute) Depressive disorder (Acute 05/11/13) Family history of breast cancer (Acute 04/11/15) Polyp of colon (Acute 05/11/13) 03/09 Colonoscopy: two tubular adenomas Smoker (Acute 05/11/13) Once in a while Family history of diabetes mellitus (Chronic) Fatigue (Chronic) Vitamin D deficiency (Chronic) Bilateral carpal tunnel syndrome (Acute 04/16/16) Right repaired surgically. Pedal edema (Acute) Ascending aorta dilatation (Acute) mild 3.3cm June 2020 Mitral regurgitation (Chronic) mild to moderate Dyspnea (Acute) Chronic obstructive pulmonary disease (Acute 04/27/18) Medical History Hx of appendicitis Obesity (05/11/13) Obstructive sleep apnea syndrome (05/11/13) per pt. states a mild form Osteoporosis Peripheral neuralgia Surgical History Cortical cataract of right eye surgically repaired History of cataract surgery History of section (04/16/16) History of hysterectomy with oophorectomy (04/16/16) History of tonsillectomy (04/16/16) Hx of appendectomy Hx of section x3 Family History Mother , 77 Diabetes Essential hypertension Heart disease Hyperlipidemia Lung cancer Breast cancer Liver cancer Father , 55 Substance abuse Lung cancer Sister Diabetes Depression Hyperlipidemia Asthma Sister , 32 Diabetes Depression Heart disease Hyperlipidemia Sister Essential hypertension Depression Hyperlipidemia Brother Substance abuse Depression Hyperlipidemia Alcohol abuse Brother Hyperlipidemia Brother Alcohol abuse Substance abuse Maternal Grandfather , 86 Diabetes Essential hypertension Heart disease Hyperlipidemia Lung cancer Maternal Grandmother , 54 Breast cancer Sister Depression Son Substance abuse Alcohol abuse Son Substance abuse Alcohol abuse Daughter Depression Paternal Grandfather No problems noted. Paternal Grandmother No problems noted. 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 Pets and animals: Yes Pets and animals: cat(s) Sexually active: No Do you think of yourself as: straight/heterosexual What is your relationship status?: How often do you talk on the phone with friends or family?: twice per week How often do you get together with friends or relatives?: once per week How often do you attend mandaen or judaism services?: decline to answer Do you belong to any clubs or organized social groups?: no Panel score (0-1 are the most socially isolated patients): 1 What type of physical activity do you participate in: walking Duration: decline to answer Frequency: decline to answer Sveta/Synagogue: No preference Special sveta needs: No Seatbelt use: always Helmet use: Yes Helmet use: sometimes Drive intox or ride w/intox wrecker driver: No Do you feel safe at home: Yes Do you feel safe in your relationship?: Yes Additional Social history: lives alone Exam Narrative Exam Narrative: Constitutional: Alert and oriented x3. Appears stated age. Normal body habitus. Head: Normocephalic, no trauma. Eyes: Pupils PERRL, Red reflex noted, EOM's intact. Eyelids symmetrical without lesions, discharge, or swelling. ENT: Bilateral TM's WNL, External ear normal to inspection, no mastoid TTP, swelling, or erythema, Nasal turbinates WNL, no nasal discharge. Normal dentition, Posterior pharynx WNL, no exudate. Chest: RRR, Normal S1, S2, distal pulses intact. Resp: Lungs have expiratory wheezes throughout. No increased work of breathing. Abdomen: Soft, non-distended, Normoactive bowel sounds all 4 quads. Musculoskeletal: Normal gait, 5/5 strength to all four extremities. Skin: No suspicious rashes or lesions. Capillary refill less than 2 sec. Neurologic: Cranial nerves II-XII intact. Alert and oriented x 3. Motor: No deficits noted. Sensory: Intact bilaterally all 4 extremities. Reflexes: DTR's intact bilaterally.. Hematologic/Lymphatic: No ecchymosis, no lymphadenopathy. Course Vital Signs Vital signs: Vital Signs Temperature 37.2 C 10/09/22 08:07 Pulse 73 10/09/22 08:07 Respiratory Rate 20 10/09/22 08:07 Blood Pressure 159/81 H 10/09/22 08:07 Pulse Oximetry 92 10/09/22 08:07 Temperature 37.2 C 10/09/22 08:07 Temperature Source Temporal Artery Scan 10/09/22 08:07 Pulse 73 10/09/22 08:07 Respiratory Rate 20 10/09/22 08:07 Blood Pressure 159/81 H 10/09/22 08:07 Blood Pressure Position Sitting 10/09/22 08:07 Pulse Oximetry 92 10/09/22 08:07 Oxygen Delivery Method Room Air 10/09/22 08:07 Oxygen Flow Rate 0 10/09/22 08:07 Pain Level 0 10/09/22 08:07
[2022-10-09] MEDS: REMDESIVIR 100 MG in Normal Saline 250 ML 250 MG IVPB (08:37)
[2022-10-09 08:47] VITALS: RESP 14
[2022-10-09 10:23] VITALS: BP 145/85; PULSE 75; RESP 20; TEMP 37; O2SAT 99
== END 2022-10-09 10:22 | disposition home or self-care (01) ==
PROVIDERS: Emergency Provider Registered Nurse Emergency; PCP Nurse Practitioner Family
DX: Z51.81 Encounter for therapeutic drug level monitoring (principal); U07.1 COVID-19; Z79.51 Long term (current) use of inhaled steroids; Z53.29 Procedure and treatment not carried out because of patient's decision for other reasons
CPT/HCPCS: 96365; 99284; J0248

== ENCOUNTER 2023-06-05 02:36 | Outpatient (CLI) | payer MEDICARE, MEDICAID, SELFPAY ==
[2023-06-05 09:23] LABS: Hemoglobin A1C 6.3 % (<5.7)
[2023-06-05 10:18] LABS: CREATININE 0.7 mg/dL (0.55-1.02); Calculated LDL 112 mg/dL (<100); Cholesterol 187 mg/dL (<200); Estimated GFR 96.52 (mL/min/1.73m2); HDL Cholesterol 46 mg/dL (40-60); Potassium 3.3 mmol/L (3.5-5.1); Triglyceride 147 mg/dL (<150); Vitamin B12 385 pg/mL (193-986)
== END 2023-06-05 02:37 | disposition home or self-care (01) ==
LOC: LBO 02:36
PROVIDERS: PCP Nurse Practitioner Family; Visit Provider Nurse Practitioner Family
DX: I10 Essential (primary) hypertension (principal); E78.5 Hyperlipidemia, unspecified; E53.8 Deficiency of other specified B group vitamins; R73.09 Other abnormal glucose
CPT/HCPCS: 36415; 80061; 82565; 82607; 83036; 84132

== ENCOUNTER 2023-07-30 07:33 | Emergency (ER) | payer MEDICARE, MEDICAID, SELFPAY ==
[2023-07-30 07:37] VITALS: BP 149/62; PULSE 75; RESP 18; TEMP 36.2; O2SAT 90
--- NOTE | 2023-07-30 07:45 | DI.RAD_ITS ---
Exam(s) XR RIBS RT PA CHEST 3V EXAM: XR RIBS RT PA CHEST 3V CLINICAL HISTORY: fall, right rib pain sob TECHNIQUE: 2D digital imaging was performed.Five images were obtained. COMPARISON: CR XR CHEST 2V PA LATERAL from 06/05/2020 FINDINGS: MEDIASTINUM: Normal. HEART: Normal. PULMONARY VASCULATURE: Normal. LUNGS: Clear. PLEURAL SPACE: No pleural effusion or pneumothorax. BONE:Normal. RIGHT RIBS: Normal. OTHER FINDINGS:Normal. IMPRESSION: 1. No acute pulmonary findings. 2. Unremarkable right ribs. DATA REPOSITORY: RADIATION DOSE DELIVERED:
--- NOTE | 2023-07-30 08:12 | ED.GENADUL_ITS ---
Discharge Plan Disposition Patient Disposition: Home Condition: Improving Discharge Details Chief Complaint: Chest/Rib Clinical Impression: Rib contusion Primary Care Provider: Garrett Chan ED Provider: Fransisco Thompson Home Meds and New Rx's Prescriptions: No Action calcium citrate [Calcitrate] 200 mg (950 mg) tablet 500 mg PO DAILY cholecalciferol (vitamin D3) 3,000 unit tablet 5,000 unit PO DAILY ascorbate calcium (vitamin C) 500 mg tablet 500 mg PO DAILY fluticasone propion-salmeterol [Advair Diskus] 500-50 mcg/dose blister with device 1 inh inhalation BID Qty: 60 4RF albuterol sulfate [ProAir HFA] 90 mcg/actuation HFA aerosol inhaler 2 puff Inhalation Q4H PRN PRN (Reason: shortness of breath or wheezing) Qty: 8.5 3RF Rx Instructions: Dispense #3 inhalers. use with spacer as directed. 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 metoprolol tartrate 50 mg tablet 25 mg PO BID Qty: 90 3RF paroxetine HCl 40 mg tablet 40 mg PO DAILY Qty: 90 3RF trazodone 100 mg tablet 100 mg PO HS Qty: 90 3RF albuterol sulfate 2.5 mg /3 mL (0.083 %) solution for nebulization 2.5 mg IH QID PRN (Reason: shortness of breath or wheezing) Qty: 420 3RF loratadine 10 mg tablet 10 mg PO DAILY Qty: 90 3RF prednisone 20 mg tablet 40 mg PO DAILY Qty: 10 0RF Rx Instructions: Take 2 tablets daily for 5 days cyanocobalamin (vitamin B-12) [Vitamin B-12] 1,000 mcg Tablet 1,000 mcg PO DAILY Systane Complete 0.6 % Drops 1 drp OPHTHALMIC (EYE) TID PRN Discharge Instructions Instructions: Rib Contusion (ED) Additional Instructions: Please use incentive spirometer as instructed. Please return to the emergency department for any worsening symptoms Medical Decision Making 63-year-old female history of COPD presents 3 days after falling off of a palate 3 foot off the ground, fell onto her right side, striking right chest wall, pain to anterior lateral lower right ribs, pain worse with inspiration and palpation, no definitive palpable deformity crepitus or step-off, patient noted to be moderately hypertensive arrival likely related to pain, oxygen saturation 90% on arrival, 94% currently on room air, was as low as the 80s at home this morning, patient has not been able to take her inhaler due to breathing discomfort. Speaking full sentences moving air however quiet lungs bilaterally. Concern for rib fracture with underlying pulmonary contusion versus hemothorax versus pneumothorax versus pneumonia low suspicion for ACS PE or aortic pathology. Screening labs chest x-ray rib series, analgesia anti-inflammatory, nebs dexamethasone Lidoderm patch close reassessment. 10: 26 intermittent desaturation to high 80s on room air, coaching patient at bedside to take slow deep breaths have improved her oxygenation to the mid 90s. Will educate with incentive spirometer. No evidence of fracture contusion hemothorax or pneumothorax or pneumonia. Likely component of splinting and COPD contributing to intermittent desaturation. Will observe here in department after steroids and nebs and incentive spirometer. If patient is able to maintain her oxygenation she will be discharged home with home care instructions and return precautions 11: 25 resting comfortably no acute distress, currently saturating 92% on room air HPI General Date/Time Provider Initiated Documentation: 07/30/23 07:54 . HPI Narrative: 63-year-old female history of COPD presents 3 days after falling off of a pallet approximately 3 feet off the ground, striking her right side, pain to her right ribs and trouble breathing. Noticed decreased oxygen saturation at home this morning to the high 80s Related Data Home Medications Medication Instructions Recorded Confirmed calcium citrate 200 mg (950 mg) 500 mg PO DAILY 09/10/18 05/15/23 tablet (Calcitrate) cholecalciferol (vitamin D3) 75 5,000 unit PO DAILY 09/10/18 05/15/23 mcg (3,000 unit) tablet propylene glycol 0.6 % eye drops 1 drp ophthalmic (eye) TID PRN 05/13/21 05/15/23 (Systane Complete) cyanocobalamin (vitamin B-12) 1,000 mcg PO DAILY 05/24/21 05/15/23 1,000 mcg tablet (Vitamin B-12) albuterol sulfate 2.5 mg/3 mL 2.5 mg (3 mL) inhalation QID PRN 08/21/21 05/15/23 (0.083 %) solution for nebulization shortness of breath or wheezing #420 mL ascorbate calcium (vitamin C) 500 500 mg PO DAILY 11/08/21 05/15/23 mg tablet loratadine 10 mg tablet 10 mg PO DAILY #90 tabs 01/27/22 05/15/23 prednisone 20 mg tablet 40 mg PO DAILY #10 tabs 06/12/22 05/15/23 albuterol sulfate 90 mcg/actuation 2 puff inhalation Q4H PRN PRN 05/15/23 05/15/23 aerosol inhaler (ProAir HFA) shortness of breath or wheezing #8.5 grams amlodipine 5 mg tablet 5 mg PO DAILY #90 tab-caps 05/15/23 05/15/23 fluticasone 500 mcg-salmeterol 50 1 inh inhalation BID #60 ea 05/15/23 05/15/23 mcg/dose blistr powdr for inhalation (Advair Diskus) furosemide 20 mg tablet 20 mg PO QAM PRN edema #90 tabs 05/15/23 05/15/23 metoprolol tartrate 50 mg tablet 25 mg PO BID #90 tab-caps 05/15/23 05/15/23 paroxetine HCl 40 mg tablet 40 mg PO DAILY #90 tab-caps 05/15/23 05/15/23 trazodone 100 mg tablet 100 mg PO HS #90 tabs 05/15/23 05/15/23 Previous Rx's Medication Instructions Recorded albuterol sulfate 2.5 mg/3 mL 2.5 mg (3 mL) inhalation QID PRN 08/21/21 (0.083 %) solution for nebulization shortness of breath or wheezing #420 mL loratadine 10 mg tablet 10 mg PO DAILY #90 tabs 01/27/22 prednisone 20 mg tablet 40 mg PO DAILY #10 tabs 06/12/22 albuterol sulfate 90 mcg/actuation 2 puff inhalation Q4H PRN PRN 05/15/23 aerosol inhaler (ProAir HFA) shortness of breath or wheezing #8.5 grams amlodipine 5 mg tablet 5 mg PO DAILY #90 tab-caps 05/15/23 fluticasone 500 mcg-salmeterol 50 1 inh inhalation BID #60 ea 05/15/23 mcg/dose blistr powdr for inhalation (Advair Diskus) furosemide 20 mg tablet 20 mg PO QAM PRN edema #90 tabs 05/15/23 metoprolol tartrate 50 mg tablet 25 mg PO BID #90 tab-caps 05/15/23 paroxetine HCl 40 mg tablet 40 mg PO DAILY #90 tab-caps 05/15/23 trazodone 100 mg tablet 100 mg PO HS #90 tabs 05/15/23 Allergies Allergy/AdvReac Type Severity Reaction Status Date / Time Sulfa (Sulfonamide Allergy Severe HIVES; RASH Verified 05/15/23 13:03 Antibiotics) bupropion AdvReac Severe HIGH BLOOD Verified 05/15/23 13:03 PRESSURE erythromycin base AdvReac Intermediate YEAST Verified 05/15/23 13:03 INFECTIONS lisinopril AdvReac Mild cough Verified 05/15/23 13:03 General Stated Complaint: Chest/Rib GOOD: 3 Review of Systems Narrative: Review of Systems Constitutional: negative Eyes: negative ENT: negative Cardiovascular: negative Respiratory: Chest wall discomfort, shortness of breath Gastrointestinal: negative : negative Musculoskeletal: negative Skin: negative Neurologic: negative Psych: negative PFSH All Active Problems (Updated 07/30/23 @ 11:27 by Fransisco Thompson MD) Rib contusion (Acute) Hyperlipemia (Acute) B12 deficiency (Acute) Hypertension, essential, benign (Acute) Depressive disorder (Acute 05/11/13) Family history of breast cancer (Acute 04/11/15) Polyp of colon (Acute 05/11/13) 03/09 Colonoscopy: two tubular adenomas Smoker (Acute 05/11/13) Once in a while Family history of diabetes mellitus (Chronic) Fatigue (Chronic) Vitamin D deficiency (Chronic) Bilateral carpal tunnel syndrome (Acute 04/16/16) Right repaired surgically. Pedal edema (Acute) Ascending aorta dilatation (Acute) mild 3.3cm June 2020 Mitral regurgitation (Chronic) mild to moderate Dyspnea (Acute) Chronic obstructive pulmonary disease (Acute 04/27/18) Medical History (Updated 07/30/23 @ 11:27 by Fransisco Thompson MD) COVID-19 Hx of appendicitis Obesity (05/11/13) Obstructive sleep apnea syndrome (05/11/13) per pt. states a mild form Osteoporosis Peripheral neuralgia Surgical History Cortical cataract of right eye surgically repaired History of cataract surgery History of section (04/16/16) History of hysterectomy with oophorectomy (04/16/16) History of tonsillectomy (04/16/16) Hx of appendectomy Hx of section x3 Family History Mother , 77 Diabetes Essential hypertension Heart disease Hyperlipidemia Lung cancer Breast cancer Liver cancer Father , 55 Substance abuse Lung cancer Sister Diabetes Depression Hyperlipidemia Asthma Sister , 32 Diabetes Depression Heart disease Hyperlipidemia Sister Essential hypertension Depression Hyperlipidemia Brother Substance abuse Depression Hyperlipidemia Alcohol abuse Brother Hyperlipidemia Brother Alcohol abuse Substance abuse Maternal Grandfather , 86 Diabetes Essential hypertension Heart disease Hyperlipidemia Lung cancer Maternal Grandmother , 54 Breast cancer Sister Depression Son Substance abuse Alcohol abuse Son Substance abuse Alcohol abuse Daughter Depression Paternal Grandfather No problems noted. Paternal Grandmother No problems noted. Social History (Updated 05/16/23 @ 09:52 by Sana Teixeira) Smoking/Tobacco Use Status: Current-Occasional Tobacco Type: cigarettes Tobacco: How many years used: 30 Second Hand Exposure: Yes Smoking risk assessment performed?: Yes Alcohol Intake: former Drug use: Never Substance use type: does not use Caregiver/Support person: No Household members: none Housing: apartment Communication Needs: None Do you need help understanding health information?: Rarely current occupation: [employer] Pets and animals: Yes Pets and animals: cat(s) Sexually active: No Do you think of yourself as: straight/heterosexual Current gender identity: female What is your relationship status?: How often do you talk on the phone with friends or family?: twice per week How often do you get together with friends or relatives?: decline to answer How often do you attend judaism or faith services?: decline to answer Do you belong to any clubs or organized social groups?: no Panel score (0-1 are the most socially isolated patients): 0 What type of physical activity do you participate in: none Frequency: does not exercise Sveta/Pentecostalism: No preference Special sveta needs: No Seatbelt use: always Helmet use: Yes Helmet use: sometimes Drive intox or ride w/intox food mobile driver: No Do you feel safe at home: Yes Do you feel safe in your relationship?: Yes Additional Social history: lives alone Exam Narrative Exam Narrative: Physical Examination General: alert, awake, cooperative, appears uncomfortable HEENT: normocephalic, atraumatic; PERRL, EOM intact, conjunctiva normal; no nasal discharge; moist mucous membranes, oral and pharyngeal mucosa normal, tolerating secretions Neck: supple, trachea midline; full ROM Chest: normal to inspection; tender over anterior lateral lower ribs without crepitus or deformity noted Respiratory: Shallow breaths, speaking in full sentences, quiet lungs bilaterally Cardiac: regular rate, regular rhythm, S1S2 intact, no murmurs rubs or gallops GI: abdomen soft, non-tender, non-distended; no palpable mass or hepatosplenomegaly Skin: no lesions, rashes or trauma appreciated Neuro: AAOx3, normal speech, moving all extremities Extremities: No signs of trauma Psych: Appropriate mood and affect Course Vital Signs Vital signs: Vital Signs Temperature 36.2 C L 07/30/23 07:37 Pulse 75 07/30/23 07:37 Respiratory Rate 18 07/30/23 07:37 Blood Pressure 149/62 H 07/30/23 07:37 Pulse Oximetry 90 L 07/30/23 07:37 Temperature 36.2 C L 07/30/23 07:37 Pulse 75 07/30/23 07:37 Respiratory Rate 18 07/30/23 07:37 Respiratory Effort Normal, Non-Labored 07/30/23 07:53 Respiratory Depth Normal 07/30/23 07:53 Respiratory Pattern Normal 07/30/23 07:53 Blood Pressure 149/62 H 07/30/23 07:37 Blood Pressure Position Sitting 07/30/23 07:37 Pulse Oximetry 90 L 07/30/23 07:37 Oxygen Delivery Method Room Air 07/30/23 07:37 Oxygen Flow Rate 0 07/30/23 07:37 Pain Level 8 07/30/23 07:53
[2023-07-30] MEDS: Lidocaine 5% Patch 1 PATCH TP (08:13)
[2023-07-30] MEDS: Ketorolac 15 MG/ML VIAL IVP (08:13)
[2023-07-30 08:14] VITALS: PULSE 70; RESP 1; RESP 18; O2SAT 89
[2023-07-30] MEDS: Dexamethasone 10 MG/ML VIAL IVP (08:14)
[2023-07-30] MEDS: Albuterol 2.5 MG/3 ML INH SOLN VIAL UPD (08:14)
[2023-07-30 08:15] LABS: Abs Immature Grans 0.02 10^3/uL (0.0-0.06); Absolute Basophil Count 0.06 10^3/uL (0.0-0.2); Absolute Eosinophil Count 0.15 10^3/uL (0.0-0.7); Absolute Lymphocyte Count 3.85 10^3/uL (1.2-3.4); Absolute Monocyte Count 0.91 10^3/uL (0.1-0.8); Absolute Neutrophil Count 5.65 10^3/uL (1.2-6.7); Basophils % 0.6; Eosinophils % 1.4; HCT 44.4 % (36.0-46.0); HGB 14.5 g/dL (11.2-15.7); Immature Grans % 0.2; Lymphocytes % 36.2; MCH 27.9 pg (27.0-33.0); MCHC 32.7 % (32.0-36.0); MCV 86 fL (80-95); MPV 10.3 fL (8.0-11.0); Monocytes % 8.6; Platelet Count 311 10^3/uL (130-400); RBC 5.19 10^6/uL (3.93-5.22); RDW 13.1 % (11.7-14.6); RDW-SD 41.1 fL; WBC 10.64 10^3/uL (4.4-10.8)
[2023-07-30 08:28] LABS: ALT 40 U/L (14-59); AST 20 U/L (15-37); Albumin 3.8 g/dL (3.4-5.0); Alkaline Phosphatase 146 U/L (46-116); Anion Gap 8.1 mmol/L (3-11); BUN 9 mg/dL (7-18); Bilirubin, Total 0.5 mg/dL (0.2-1.0); CO2 28.9 mmol/L (21.0-32.0); CREATININE 0.7 mg/dL (0.55-1.02); Chloride 101 mmol/L (98-107); Estimated GFR 95.92 (mL/min/1.73m2); Glucose 110 mg/dL (74-106); Potassium 3.6 mmol/L (3.5-5.1); Sodium 138 mmol/L (136-145)
[2023-07-30 10:46] VITALS: O2SAT 94
[2023-07-30 11:00] VITALS: O2SAT 96
[2023-07-30 11:24] VITALS: BP 122/70; PULSE 77; RESP 16; O2SAT 92
== END 2023-07-30 11:33 | disposition home or self-care (01) ==
PROVIDERS: Emergency Provider Emergency Medicine; PCP Nurse Practitioner Family
DX: S20.211A Contusion of right front wall of thorax, initial encounter (principal); W17.89XA Other fall from one level to another, initial encounter
CPT/HCPCS: 36415; 80053; 96374; 96375; 99284; 71046; 71100; 85025; J1100; J1885; J7613

== ENCOUNTER 2023-09-07 12:09 | Outpatient (REF) | payer MEDICARE, MEDICAID, SELFPAY | END 2023-09-07 12:10 | disposition home or self-care (01) | LOC: NCHCN 12:09 | PROVIDERS: PCP Nurse Practitioner Family; Visit Provider Nurse Practitioner Family | DX: R39.15 Urgency of urination (principal) | CPT/HCPCS: 87086 ==

== ENCOUNTER → 2023-10-01 12:42 | Outpatient (BNVA) | payer MEDICARE, MEDICAID, SELFPAY | PROVIDERS: PCP Nurse Practitioner Family; Referring Provider Nurse Practitioner Family; Visit Provider Student in an Organized Health Care Education/Training Program | DX: J44.9 Chronic obstructive pulmonary disease, unspecified (principal); Z87.891 Personal history of nicotine dependence; Z79.51 Long term (current) use of inhaled steroids; I10 Essential (primary) hypertension | CPT/HCPCS: 94618; 99215 ==

== ENCOUNTER → 2023-10-06 00:35 | Outpatient (CLI) | payer MEDICARE, MEDICAID, SELFPAY ==
--- NOTE | 2023-10-06 15:59 | DI.MAMMO_ITS ---
Exam(s) MAMMO SCREENING EXAM: MAMMO SCREENING CLINICAL HISTORY: screening, z12.39. TECHNIQUE: Bilateral full field digital CC and MLO mammographic images were obtained with 3D tomosyn thesis and utilizing computer aided detection (CAD). COMPARISON: Prior mammograms were reviewed. Left breast ultrasound of 09/24/2022 was also reviewed. FINDINGS: In the right breast there is a new small nodular density best seen on the CC view approximately 1.8 c m in from the nipple and measuring 5 x 4 mm, not previously present. Another smaller benign-appearing nodule in the right breast is unchanged. In the left breast a retroareolar region nodule is unchanged in size from August 2022, measuring jered roximately 10 x 9 mm and corresponding into a simple cyst seen on ultrasound August 2022. Other sma ller nodular density in the left breast remains unchanged. However, there is also an additional 6 x 5 mm nodule in the left breast seen on the 3D cc view 4 cm in from the nipple which is more evident t spicer on prior studies. There are no malignant-appearing microcalcification groups either breast. There is no significant architectural distortion nor skin thickening-retraction. IMPRESSION: Single new small bilateral nodule in each breast as described above. Bilateral spot compression CC v iews and bilateral breast ultrasound recommended. BI-RADS Category 0 - Assessment Incomplete: Need additional imaging evaluation Breast Density - Category B - Scattered areas of fibroglandular density Breast density Category C or D implies that the patient has dense breast tissue. Dense breast tissue can make it harder to find cancer on a mammogram. Dense breast tissue is also associated with an incr eased risk of breast cancer. This information about the result of the mammogram report was provided to the patient to raise their awareness. Use this report when you speak with the patient about their risks for breast cancer, which includes their family history. At that time, you may recommend additional screening tests (Ultrasoun d or MRI) as these tests may add significant information. A negative radiographic report should not delay biopsy if a dominant or clinically suspicious mass is present. Up to ten percent of cancers are not identified on mammography. A negative report may reinforce clinical impression. Adenosis and dense breasts may obscure an underlying neoplasm. False positive reports average 6 to 10%. Patient will receive a letter notifying them of these results.
== END ==
PROVIDERS: PCP Nurse Practitioner Family; Visit Provider Nurse Practitioner Family
DX: Z12.31 Encounter for screening mammogram for malignant neoplasm of breast (principal); R92.8 Other abnormal and inconclusive findings on diagnostic imaging of breast; R92.323 Mammographic fibroglandular density, bilateral breasts
CPT/HCPCS: 77063; 77067

== ENCOUNTER → 2023-10-08 01:18 | Outpatient (CLI) | payer MEDICARE, MEDICAID, SELFPAY ==
--- NOTE | 2023-10-08 | DI.US_ITS ---
Exam(s) US BREAST LT COMPLETE US BREAST RT COMPLETE MG MAMMO SCREEN CALL BACK BI EXAM: MG MAMMO SCREEN CALL BACK BI AND BILATERAL COMPLETE BREAST ULTRASOUND CLINICAL HISTORY: SMALL BILAT NODULES EACH BREAST R92.8 ABNL MAMMO. TECHNIQUE: BILATERAL spot mammographic images obtained with 3D tomosynthesisand utilizing computer a ided detection (CAD). . Complete BILATERAL breast Ultrasound was also performed, including all 4 quadrants, the retroareolar regions, and BOTH AXILLARY REGIONS COMPARISON: Prior mammograms were reviewed. This additional imaging was performed due to findings described on the recent screening mammogram of 10/06/2023. FINDINGS: DIAGNOSTIC MAMMOGRAM: Additional mammographic views performed todaydo not dissipate the nodule in the right breast. Additi onal mammographic spot view of the left breast is equivocal for the persistence of the new nodule karlie cribed on the recent mammogram. The larger pre-existing nodule in left breast is again noted, previously documented to be a cyst. COMPLETE BILATERAL BREAST ULTRASOUND: Right breast ultrasound: Ultrasound performed today reveals a 5 x 3 mm benign microcyst at the central blum o'clock position which corresponds to the new nodule on the mammogram. There are no solid lesions in all 4 quadrants and the right axilla is negative for adenopathy.. Left breast ultrasound: Again noted is the 11 by 9 mm cyst at 3 o'clock position, unchanged from previous and corresponding t o the unchanged nodule on the mammogram. At the 4 o'clock position of the left breast there are 2 benign microcysts noted. The smaller measur es 3 x 3 mm. The larger measures 5 x 3 mm. One of these may correspond to the new finding on the re cent screening mammogram. Importantly, there are no solid lesions seen in all 4 quadrants of the lef t breast. Scanning of the left axilla is also negative for significant adenopathy. IMPRESSION: 1. Benign findings. The new nodules evident bilaterally on the recent screening mammogram proved to be microcysts on ultrasound. In addition, the previously present larger 11 x 9 mm cyst in the left breast is unchanged and corresponds to the unchanged dominant nodule on the mammogram. 2. Most importantly, there are no new solid lesions in either breast. Appropriate follow-up as discussed by myself with the patient today is to keep her on a yearly mammog genevieve schedule, with earlier imaging if a self detected breast change is noted.. The patient was informed of these findings and recommendations by myself prior to leaving the departm ent today. BI-RADS Category 2 - Benign Findings Breast Density - Category B - Scattered areas of fibroglandular density Breast density Category C or D implies that the patient has dense breast tissue. Dense breast tissue can make it harder to find cancer on a mammogram. Dense breast tissue is also associated with an incr eased risk of breast cancer. This information about the result of the mammogram report was provided to the patient to raise their awareness. Use this report when you speak with the patient about their risks for breast cancer, which includes their family history. At that time, you may recommend additional screening tests (Ultrasoun d or MRI) as these tests may add significant information. A negative radiographic report should not delay biopsy if a dominant or clinically suspicious mass is present. Up to ten percent of cancers are not identified on mammography. A negative report may reinforce clinical impression. Adenosis and dense breasts may obscure an underlying neoplasm. False positive reports average 6 to 10%. Patient will receive a letter notifying them of these results.
== END ==
PROVIDERS: PCP Nurse Practitioner Family; Visit Provider Nurse Practitioner Family
DX: Z12.31 Encounter for screening mammogram for malignant neoplasm of breast (principal); N63.15 Unspecified lump in the right breast, overlapping quadrants; N63.25 Unspecified lump in the left breast, overlapping quadrants
CPT/HCPCS: 76642; 77063; 77067

== ENCOUNTER → 2023-10-12 01:25 | Outpatient (CLI) | payer MEDICARE, MEDICAID, SELFPAY ==
--- NOTE | 2023-10-12 07:00 | DI.CTLCSR_ITS ---
Exam(s) CT CHEST LUNG CANCER SCREEN EXAM: CT CHEST LUNG CANCER SCREEN CLINICAL HISTORY: Screening for lung cancer,FORMER SMOKER, Z87.891 TECHNIQUE: Imaging Protocol: Axial computed tomography images with coronal and sagittal reformatted images were created and reviewed. Low dose screening protocol. COMPARISON: CT CT CHEST PE CTA from 10/07/2022 FINDINGS: Tracheobronchial tree: No bronchiectasis or mucus plugging.. Mediastinum and Briseyda: No dominant adenopathy or fluid collection. Pulmonary parenchyma: No consolidation or dominant measurable mass. Mild emphysematous changes. Lung Nodules: A few tiny scattered granulomata. Pleura: No effusion. No pneumothorax. Heart: The heart is mildly dilated. Mild coronary artery calcifications are seen. Aorta: Thoracic aorta non-dilated. Mild atherosclerotic changes. Upper abdomen: Enlarged fatty liver. Bones: Unremarkable for age. Soft Tissues: Unremarkable. IMPRESSION: No suspicious pulmonary nodules. Lung RADS Cat 2 - Benign Appearance / Behavior: Nodules with a very low likelihood of becoming a clin ically active cancer due to size or lack of growth Lung-RADS 1.0 CATEGORIES: Category 0 - Prior chest CT exam(s) being located for comparison. Category 1 - Annual screening in 12 months. No nodules or definitely benign nodules. Category 2 - Annual screening in 12 months. Benign appearance. Nodules with low likelihood of becomin g active cancer. Category 3 - 6-month follow-up. Probably benign. Short-term follow-up suggested. Nodules with low lik elihood of becoming active cancer. Category 4A - 3-month follow-up and CT/PET if >8 mm in size. Suspicious finding. Findings which requi re additional testing. Category 4B - Findings which require additional testing and tissue sampling. Category 4X - Category 3 or 4 nodules with additional features or imaging findings that increases the suspicion of malignancy. Modifier S- Potentially clinically significant findings (non lung cancer) RADIATION DOSE DELIVERED: Total DLP DATA REPOSITORY: All CT scans at this facility are submitted to the National Radiology Data Registry (NRDR) Dose Index Registry (DIR) with the [employer] (A[employer]). RADIATION OPTIMIZATION: All CT scans at this facility use at least one of these dose optimization te chniques: automated exposure control; mA and/or kV adjustment per patient size (includes targeted exa ms where dose is matched to clinical indication); or iterative reconstruction.
[2023-10-12] MEDS: Inhaler, Assist Device 1 EACH MC (08:56)
[2023-10-12] MEDS: Levalbuterol HFA 15 GM INH 4 PUFF IH (08:56)
--- NOTE | 2023-10-12 12:50 | W.PFT ---
Date of service: 10/12/23 Time of Service: 08:12 Pulmonary Function Test Result Indications: COPD Interpretation Spirometry: There is severe airflow limitation. There is no significant bronchodilator response. Lung Volumes: There is air trapping Diffusion Capacity: Diffusion is low Airway Pressure: Increased airways resistance Impression Severe airflow obstruction with air trapping and a reduced diffusion. Clinical Correlation therefore is recommended.
== END ==
PROVIDERS: PCP Nurse Practitioner Family; Visit Provider Student in an Organized Health Care Education/Training Program
DX: J44.9 Chronic obstructive pulmonary disease, unspecified (principal); Z87.891 Personal history of nicotine dependence; Z12.2 Encounter for screening for malignant neoplasm of respiratory organs
CPT/HCPCS: 71271; 94060; 94726; 94729

== ENCOUNTER → 2023-12-03 09:12 | Outpatient (BNVA) | payer OTHER, MEDICAID, SELFPAY | PROVIDERS: PCP Nurse Practitioner Family; Referring Provider Nurse Practitioner Family; Visit Provider Physical Therapy Assistant | DX: Z12.11 Encounter for screening for malignant neoplasm of colon (principal) ==

== ENCOUNTER → 2024-03-29 13:50 | Outpatient (BNVA) | payer OTHER, MEDICAID, SELFPAY | PROVIDERS: PCP Nurse Practitioner Family; Referring Provider Nurse Practitioner Family; Visit Provider Student in an Organized Health Care Education/Training Program | DX: J43.1 Panlobular emphysema (principal); Z87.891 Personal history of nicotine dependence; J96.91 Respiratory failure, unspecified with hypoxia | CPT/HCPCS: 99214 ==

== ENCOUNTER → 2024-04-08 13:33 | Outpatient (CLI) | payer OTHER, MEDICAID, SELFPAY ==
--- NOTE | 2024-04-08 13:45 | DI.RAD_ITS ---
Exam(s) XR CHEST 2V PA LATERAL EXAM: XR CHEST 2V PA LATERAL CLINICAL HISTORY: productive cough, not improved by prednisone,r05.9 TECHNIQUE: 2D digital imaging was performed. Two views. COMPARISON: CT CT CHEST LUNG CANCER SCREEN from 10/12/2023 FINDINGS: HEART: Normal size. Aorta: Not dilated. PULMONARY VASCULATURE: Normal. LUNGS: No focal area infiltration. Mild fibrotic changes. PLEURAL SPACE: No pleural effusion or pneumothorax. BONE:Unremarkable for age. Soft tissues: Unremarkable. IMPRESSION: No acute abnormality. DATA REPOSITORY: RADIATION DOSE DELIVERED:
== END ==
PROVIDERS: PCP Nurse Practitioner Family; Visit Provider Student in an Organized Health Care Education/Training Program
DX: R05.9 Cough, unspecified (principal)
CPT/HCPCS: 71046

== ENCOUNTER → 2024-06-22 01:06 | Outpatient (CLI) | payer OTHER, MEDICAID, SELFPAY ==
--- NOTE | 2024-06-22 06:27 | DI.CT_ITS ---
Exam(s) CT THORAX CTA EXAM: CT THORAX CTA CLINICAL HISTORY: F/U of 3.3cm dilation thoracic aorta,I77.810. TECHNIQUE: Imaging Protocol: Axial CT angiography was performed with multi-slice acquisition and mu lti-planar and/or 3D reconstructions. CONTRAST MATERIAL: Intravenous: Omnipaque 350 contrast volume:100 mL COMPARISON: CT CT CHEST PE CTA from 10/07/[address] CHEST LUNG CANCER SCREEN from 10/12/2023 CR XR CHEST 2V PA LATERAL from 04/08/2024 FINDINGS: Tracheobronchial tree: Patent where visualized. No bronchiectasis. Pulmonary parenchyma: Mild centrilobular emphysematous changes are present. There is a calcified gra nuloma present. No noncalcified pulmonary nodules are seen. No focal consolidating infiltrates are present. No architectural distortion. Pulmonary Arteries: No evidence of filling defect to suggest pulmonary emboli. Mediastinum and Briseyda: No dominant adenopathy or fluid collection. The esophagus is unremarkable. Visualized thyroid gland: Unremarkable. Pleura: No effusion or pneumothorax. Heart: The heart is not dilated. Coronary artery calcifications are present. No pericardial effusion . Aorta: The ascending thoracic aorta measures 3.5 x 3.3 cm. No evidence of dissection. Atheroscleroti c calcification is present. The left vertebral artery arises directly from the aortic arch. Upper abdomen: Unremarkable. Soft tissues: Unremarkable. Bones: Within normal limits for the patient's age.There are old healed rib fractures. IMPRESSION: 1. No evidence of pulmonary embolism or thoracic aortic dissection. 2. The ascending thoracic aorta measures 3.5 x 3.3 cm. Atherosclerotic calcification is present. 3. Mild centrilobular emphysematous changes in the lungs. 4. No pulmonary nodules. RADIATION DOSE DELIVERED: Total DLP Total DLP DATA REPOSITORY: All CT scans at this facility are submitted to the National Radiology Data Registry (NRDR) Dose Index Registry (DIR) with the [employer] (ACR). RADIATION OPTIMIZATION: All CT scans at this facility use at least one of these dose optimization te chniques: automated exposure control; mA and/or kV adjustment per patient size (includes targeted exa ms where dose is matched to clinical indication); or iterative reconstruction.
[2024-06-22 08:25] LABS: CREATININE 0.8 mg/dL (0.55-1.02); Estimated GFR 81.72 (mL/min/1.73m2)
[2024-06-22] MEDS: Normal Saline - Diluent 50 ML VIAL IJ (08:31)
[2024-06-22] MEDS: Omnipaque 350 MG/ML 100 ML BTL IJ (08:33)
== END ==
PROVIDERS: PCP Nurse Practitioner Family; Visit Provider Nurse Practitioner Family
DX: I77.810 Thoracic aortic ectasia (principal)
CPT/HCPCS: 71275; 82565; J3490

== ENCOUNTER 2024-09-16 00:33 | Outpatient (CLI) | payer OTHER, MEDICAID, SELFPAY ==
--- NOTE | 2024-09-16 07:15 | DI.MAMMO_ITS ---
Exam(s) MAMMO DIAGNOSTIC BI US BREAST LT LIMITED EXAM: MAMMO DIAGNOSTIC BI and U/S breast LT limited CLINICAL HISTORY: Left Breast Pain and Enlargement,n64.4. TECHNIQUE: Craniocaudal and mediolateral oblique Full Field Digital Mammography views with Computer Aided Diagnosis followed by Tomosynthesis and left breast ultrasound. COMPARISON: Comparison is made with prior examinations. FINDINGS: Mammography/Tomosynthesis: Masses/Architectural Distortion: The nodule in the retroareolar region of the left breast appears sta ble. No new nodules are seen. No areas of architectural distortion are present. Microcalcifictions: No suspicious pleomorphic-type are seen. Skin Thickening/Nipple Retraction: None. Limited left breast US: Echotexture: Normal appearance of the glandular tissue. Shadowing: No suspicious foci. Cyst: There is a 1.1 x 1.0 x 1.1 cm simple cyst at the 12 o'clock position of the left breast in the retroareolar region corresponding to the mammographic abnormality. There are 2 small cysts at the 4 o'clock position 2-3 cm from the nipple. No suspicious cysts are present. Solid lesions: None seen. Ductal dilation: None. IMPRESSION: 1. No evidence of malignancy is noted. 2. Unless there is more urgent need, follow-up screening mammography is recommended, as per [employer] guidelines. 3. The findings were discussed with the patient on the date of the examination. BI-RADS Category 2 - Benign Findings Breast Density - Category B - Scattered areas of fibroglandular density Breast density Category C or D implies that the patient has dense breast tissue. Dense breast tissue can make it harder to find cancer on a mammogram. Dense breast tissue is also associated with an incr eased risk of breast cancer. This information about the result of the mammogram report was provided to the patient to raise their awareness. Use this report when you speak with the patient about their risks for breast cancer, which includes their family history. At that time, you may recommend additional screening tests (Ultrasoun d or MRI) as these tests may add significant information. A negative radiographic report should not delay biopsy if a dominant or clinically suspicious mass is present. Up to ten percent of cancers are not identified on mammography. A negative report may reinforce clinical impression. Adenosis and dense breasts may obscure an underlying neoplasm. False positive reports average 6 to 10%. Patient will receive a letter notifying them of these results.
== END 2024-09-16 00:53 ==
LOC: DI 00:33
PROVIDERS: PCP Nurse Practitioner Family; Visit Provider Nurse Practitioner Family
DX: N64.4 Mastodynia (principal); R92.8 Other abnormal and inconclusive findings on diagnostic imaging of breast
CPT/HCPCS: 76642; 77062; 77066; G0279

== ENCOUNTER → 2024-09-26 09:02 | Outpatient (BNVA) | payer OTHER, MEDICAID, SELFPAY | PROVIDERS: PCP Nurse Practitioner Family; Referring Provider Nurse Practitioner Family; Visit Provider Physician Assistant Surgical | DX: J43.1 Panlobular emphysema (principal); J96.91 Respiratory failure, unspecified with hypoxia; Z87.891 Personal history of nicotine dependence | CPT/HCPCS: 99214 ==

== ENCOUNTER 2024-10-13 01:08 | Outpatient (CLI) | payer OTHER, MEDICAID, SELFPAY ==
--- NOTE | 2024-10-13 08:15 | DI.CTLCSR_ITS ---
Exam(s) CT CHEST LUNG CANCER SCREEN EXAM: CT CHEST LUNG CANCER SCREEN CLINICAL HISTORY: Screening for lung cancer,former smoker, z87.891 TECHNIQUE: Imaging Protocol: Axial computed tomography images with coronal and sagittal reformatted images were created and reviewed. Low dose screening protocol. COMPARISON: CT CT CHEST LUNG CANCER SCREEN from 10/12/[address] [facility] CTA from 06/22/2024 FINDINGS: Tracheobronchial tree: No bronchiectasis or mucus plugging. Mediastinum and Briseyda: No dominant adenopathy or fluid collection. Pulmonary parenchyma: No consolidation or dominant measurable mass. Mild emphysematous changes. No si gnificant interstitial changes. Lung Nodules: Scattered calcified granulomas again noted. Pleura: No effusion. No pneumothorax. Heart: The heart is mildly dilated. Mild coronary artery calcifications are seen. No pericardial effu yazmin. Aorta: Thoracic aorta non-dilated. Upper abdomen: Enlarged liver with hepatic steatosis. Bones: Unremarkable for age. Soft Tissues: Unremarkable. IMPRESSION: No suspicious pulmonary nodules. Lung RADS Cat 1 - Negative: No nodules and definitely benign nodules Lung-RADS 1.0 CATEGORIES: Category 0 - Prior chest CT exam(s) being located for comparison. Category 1 - Annual screening in 12 months. No nodules or definitely benign nodules. Category 2 - Annual screening in 12 months. Benign appearance. Nodules with low likelihood of becomin g active cancer. Category 3 - 6-month follow-up. Probably benign. Short-term follow-up suggested. Nodules with low lik elihood of becoming active cancer. Category 4A - 3-month follow-up and CT/PET if >8 mm in size. Suspicious finding. Findings which requi re additional testing. Category 4B - Findings which require additional testing and tissue sampling. Category 4X - Category 3 or 4 nodules with additional features or imaging findings that increases the suspicion of malignancy. Modifier S- Potentially clinically significant findings (non lung cancer) RADIATION DOSE DELIVERED: !Error Total DLP DATA REPOSITORY: All CT scans at this facility are submitted to the National Radiology Data Registry (NRDR) Dose Index Registry (DIR) with the [employer] (ACR). RADIATION OPTIMIZATION: All CT scans at this facility use at least one of these dose optimization te chniques: automated exposure control; mA and/or kV adjustment per patient size (includes targeted exa ms where dose is matched to clinical indication); or iterative reconstruction.
== END 2024-10-13 01:28 ==
LOC: DI 01:09
PROVIDERS: PCP Nurse Practitioner Family; Visit Provider Physician Assistant Surgical
DX: Z12.2 Encounter for screening for malignant neoplasm of respiratory organs (principal); Z87.891 Personal history of nicotine dependence
CPT/HCPCS: 71271

== ENCOUNTER 2024-10-13 12:54 | Outpatient (CLI) | payer OTHER, MEDICAID, SELFPAY ==
[2024-10-13 13:34] LABS: Anion Gap 10.2 mmol/L (3-11); BUN 8 mg/dL (7-18); CO2 27.8 mmol/L (21.0-32.0); CREATININE 0.9 mg/dL (0.55-1.02); Calcium 8.6 mg/dL (8.5-10.1); Chloride 103 mmol/L (98-107); Estimated GFR 70.51 (mL/min/1.73m2); Glucose 146 mg/dL (74-106); Magnesium 1.7 mg/dL (1.8-2.4); Potassium 3.4 mmol/L (3.5-5.1); Sodium 141 mmol/L (136-145)
[2024-10-13 13:41] LABS: Hemoglobin A1C 6.1 % (<5.7)
== END 2024-10-13 12:55 | disposition home or self-care (01) ==
LOC: LBO 12:56
PROVIDERS: PCP Nurse Practitioner Family; Visit Provider Nurse Practitioner Family
DX: I10 Essential (primary) hypertension (principal); R73.03 Prediabetes
CPT/HCPCS: 36415; 80048; 83036; 83735

== ENCOUNTER 2024-10-18 03:56 | Outpatient (CLI) | payer OTHER, MEDICAID, SELFPAY ==
--- NOTE | 2024-10-19 13:02 | TELEFU_ITS ---
Date of service: 10/18/24 Time of Service: 12:30 Nutrition Note NOTE: Bryanna would like some coaching with managing prediabetes/avoiding diabetes dx. She is currently on no diabetes meds. Takes D3 and Bcomplex at home. A1C was 6.1% 10/13. at provider appt was 60 98.4kg on 10/17 with VMI of >40 consistent with class III obesity. We reviewed the hard numbers of 1600kcals, ~160g total carbs, 100g protein and 50-60g fat. We looked at materials and outlined protein sources and various sources of carbs and types of carbs that influence glucose the most. Outside of numbers I affirmed bryanna's progress with habits of cutting way back on soda to currently ~4oz per day. She does like chips and this type of snack and we reviewed how quickly these choices can fill her carb total for the day. USual diet assessed as lower in fiber and protein most days. We explored menu planning for repeatable, consistent meals and snacks and avoiding grazing and/or skipping meals, especially focused on getting high protein breakfast that can help get her metabolism going as well as trying to c ut off from eating earlier in the evening to avoid holding on to the later day kcals. Encouraged to continue follow up with provider. Would recommend initiation of medication therapy with metformin and consider GLP-1/GIP class to assist with weight loss and glucose control. Time Spent in Nutritional Counseling and Treatment: 55 minutes
== END 2024-10-18 03:57 | disposition home or self-care (01) ==
LOC: DS 03:57
PROVIDERS: PCP Nurse Practitioner Family; Visit Provider Dietitian, Registered
DX: R73.03 Prediabetes (principal)
CPT/HCPCS: 00123; 97802

== ENCOUNTER 2024-11-03 02:12 | Outpatient (CLI) | payer OTHER, MEDICAID, SELFPAY ==
--- NOTE | 2024-11-03 07:30 | DI.DEXA_ITS ---
Exam(s) XR DEXA BONE DENSITY W/WO STEVE EXAM: XR DEXA BONE DENSITY W/WO STEVE CLINICAL HISTORY: osteoporosis screening,menopausal disorder.n95.9 TECHNIQUE: COMPARISON: DX DEXA BONE DENSITY WITH STEVE from 05/18/2018 FINDINGS: Lateral Spine Image: Unremarkable. No compression deformities identified. Left hip: Total T-Score: -1.5. This compares to -2.2 on the prior examination. Total Z-Score: -0.2 T- and Z-scores: Findings are consistent with osteopenia. No evidence of osteoporosis. Lumbar Spine: Total T-Score: -3.3. This compares to -3.0 on the prior examination. Total Z-Score: -1.4 T- and Z-scores: Findings are consistent with osteoporosis. Left forearm: There is osteoporosis in the left forearm with a total T-score of -3.4 and Z-score of - 1.7. This compares with a total T-score of -2.7 on the prior examination. IMPRESSION: Osteoporosis in the lumbar spine and left forearm.
== END 2024-11-03 02:32 ==
LOC: DI 02:12
PROVIDERS: PCP Nurse Practitioner Family; Visit Provider Nurse Practitioner Family
DX: N95.9 Unspecified menopausal and perimenopausal disorder (principal); Z13.820 Encounter for screening for osteoporosis; M85.89 Other specified disorders of bone density and structure, multiple sites
CPT/HCPCS: 77080

== ENCOUNTER → 2025-03-27 09:59 | Outpatient (BNVA) | payer MEDICARE, SELFPAY | PROVIDERS: PCP Nurse Practitioner Family; Referring Provider Nurse Practitioner Family; Visit Provider Physician Assistant Surgical | DX: J43.1 Panlobular emphysema (principal); J96.91 Respiratory failure, unspecified with hypoxia; Z87.891 Personal history of nicotine dependence | CPT/HCPCS: 99214 ==

== ENCOUNTER 2025-08-02 10:18 | Outpatient (CLI) | payer MEDICARE, MEDICAID, SELFPAY ==
[2025-08-02 07:39] LABS: Hemoglobin A1C 6.0 % (<5.7)
[2025-08-02 08:03] LABS: Anion Gap 9.9 mmol/L (3-11); BUN 6 mg/dL (7-18); CO2 28.1 mmol/L (21.0-32.0); Calcium 8.8 mg/dL (8.5-10.1); Calculated LDL 113 mg/dL (<100); Chloride 105 mmol/L (98-107); Cholesterol 186 mg/dL (<200); Estimated GFR 94.73 (mL/min/1.73m2); Glucose 144 mg/dL (74-106); HDL Cholesterol 49 mg/dL (>or=50); Potassium 3.4 mmol/L (3.5-5.1); Sodium 143 mmol/L (136-145); Triglyceride 122 mg/dL (<150)
== END 2025-08-02 10:19 | disposition home or self-care (01) ==
LOC: LBO 10:18
PROVIDERS: PCP Nurse Practitioner Family; Visit Provider Nurse Practitioner Family
DX: Z13.6 Encounter for screening for cardiovascular disorders (principal); Z13.1 Encounter for screening for diabetes mellitus
CPT/HCPCS: 36415; 80048; 80061; 83036

== ENCOUNTER → 2025-08-03 09:37 | Outpatient (BNVA) | payer MEDICARE, MEDICAID, SELFPAY | PROVIDERS: PCP Nurse Practitioner Family; Referring Provider Nurse Practitioner Family; Visit Provider Physical Therapy Assistant | DX: Z12.11 Encounter for screening for malignant neoplasm of colon (principal) | CPT/HCPCS: 99024 ==

== ENCOUNTER 2025-08-17 10:25 | Day surgery (SDC) | payer MEDICARE, MEDICAID, SELFPAY ==
[2025-08-17 10:53] VITALS: BP 148/81; PULSE 69; RESP 16; TEMP 36.2; O2SAT 96
[2025-08-17] MEDS: Lactated Ringers 1,000 ML 80 ML IV (11:26)
--- NOTE | 2025-08-17 12:13 | W.ANESPRE ---
General Info Date of Service Date Performed: 08/17/25 Height: 5 ft 1 in Weight: 90.2 kg Body Mass Index (BMI): 37.5 Surgical Procedure: Operation Date: 08/17/25 12:50 Proposed Procedure Side Surgeon stanislav Mirza MD Meds Allergies and Home Medications Allergies Allergy/AdvReac Type Severity Reaction Status Date / Time Sulfa (Sulfonamide Allergy Severe HIVES; RASH Verified 08/17/25 11:11 Antibiotics) ibuprofen (From Advil) Allergy Unknown Swelling/Ed Verified 08/17/25 11:11 chinedu bupropion AdvReac Severe HIGH BLOOD Verified 08/17/25 11:11 PRESSURE erythromycin base AdvReac Intermediate YEAST Verified 08/17/25 11:11 INFECTIONS lisinopril AdvReac Mild cough Verified 08/17/25 11:11 Home Medication ?Medication ?Instructions ?Recorded cholecalciferol (vitamin D3) 75 5,000 unit PO DAILY 09/10/18 mcg (3,000 unit) tablet propylene glycol 0.6 % eye drops 1 drp ophthalmic (eye) TID PRN 05/13/21 (Systane Complete) cyanocobalamin (vitamin B-12) 1,000 mcg PO DAILY 05/24/21 1,000 mcg tablet (Vitamin B-12) ascorbate calcium (vitamin C) 500 500 mg PO DAILY 11/08/21 mg tablet loratadine 10 mg tablet 10 mg PO DAILY #90 tabs 09/07/23 vitamin B complex 1 tab PO DAILY 12/30/23 paroxetine HCl 40 mg tablet 40 mg PO DAILY #90 tab-caps 09/03/24 albuterol sulfate 2.5 mg/3 mL 2.5 mg (3 mL) inhalation QID PRN 10/03/24 (0.083 %) solution for nebulization shortness of breath or wheezing #420 mL albuterol sulfate 90 mcg/actuation 2 puff inhalation Q4H PRN PRN 10/03/24 aerosol inhaler shortness of breath or wheezing #8.5 grams budesonide 160 mcg-glycopyr 9 See Rx Instructions .Route 10/03/24 mcg-formot 4.8 mcg/actuation HFA .COMPLEX #10.7 grams inhaler (Breztri Aerosphere) magnesium oxide 500 mg capsule 500 mg PO DAILY #30 caps 10/18/24 potassium chloride 20 mEq 20 meq PO DAILY #30 tabs 10/18/24 tablet,extended release amlodipine 5 mg tablet 5 mg PO DAILY #90 tab-caps 11/02/24 furosemide 20 mg tablet 20 mg PO DAILY #90 tabs 11/02/24 metoprolol tartrate 50 mg tablet 25 mg (1/2 x 50 mg) PO BID #90 11/02/24 tab-caps losartan 100 mg tablet 100 mg PO DAILY #90 tabs 05/26/25 trazodone 100 mg tablet 100 mg PO HS PRN 05/26/25 bisacodyl 5 mg tablet,delayed 5 mg PO ONCE #4 tabs 08/03/25 release (Dulcolax (bisacodyl)) polyethylene glycol 3350 17 17 g PO ONCE #238 grams 08/03/25 gram/dose oral powder Current Visit Medications: Current Medications Generic Name Dose Route Start Last Admin Trade Name Freq PRN Reason Stop Dose Admin Ringer's Solution 1,000 mls @ 80 mls/hr 08/17/25 06:00 08/17/25 11:26 IV 08/17/25 23:59 80 mls/hr INFUSION JOY Administration IV Miscellaneous Supplies 1 each 08/17/25 06:00 Iv Access IV 08/17/25 23:59 DIRECTED JOY Sodium Biphosphate/Sodium Phosphate 133 ml 08/17/25 06:00 Na Phosphate Enema-Adult 133 Ml Btl VA 08/17/25 23:59 DIRECTED PRN Sodium Chloride 0 ml 08/17/25 06:00 Normal Saline Flush 10 Ml Syr IV 08/17/25 23:59 PRN PRN Sodium Chloride 0 ml 08/17/25 06:00 Normal Saline 10 Ml Vial IJ 08/17/25 23:59 DIRECTED PRN Sterile Water 0 ml 08/17/25 06:00 Water,Injection,Sterile 10 Ml Vial IJ 08/17/25 23:59 DIRECTED PRN PFSH Active Problems Active Problems: Problem Status Onset Code Prediabetes Acute R73.03 Hypertension Chronic I10 Breast pain, left Acute N64.4 Cough Acute R05.9 Hypoxic respiratory failure Acute J96.91 Personal history of nicotine dependence Acute Z87.891 Hyperlipemia Acute E78.5 B12 deficiency Acute E53.8 Depressive disorder Acute 05/11/13 F32.9 Family history of breast cancer Acute 04/11/15 Z80.3 Polyp of colon Acute 05/11/13 K63.5 Smoker Acute 05/11/13 F17.200 Fatigue Chronic R53.83 Vitamin D deficiency Chronic E55.9 Bilateral carpal tunnel syndrome Acute 04/16/16 G56.03 Pedal edema Acute R60.0 Ascending aorta dilatation Acute I77.810 Mitral regurgitation Chronic I34.0 Dyspnea Acute R06.00 Chronic obstructive pulmonary disease Acute 04/27/18 J44.9 Medical History Medical History COVID-19 Hx of appendicitis Peripheral neuralgia Osteoporosis Obstructive sleep apnea syndrome (05/11/13) per pt. states a mild form Obesity (05/11/13) Medical History Comments:: 08/17/25: pt usually uses portable O2 - 2L N/G nocte Surgical History Surgical History Cortical cataract of right eye surgically repaired History of cataract surgery Hx of section x3 Hx of appendectomy History of section (04/16/16) History of hysterectomy with oophorectomy (04/16/16) History of tonsillectomy (04/16/16) Tobacco Smoking/Tobacco Use Status: Current-Occasional Tobacco Type: cigarettes Passive smoking exposure: Yes Second hand exposure: Yes Alcohol Alcohol Intake: current Alcohol intake frequency: holidays/special occasions only Alcohol type: beer Substance Use Substance use: Rarely Substance use type: does not use Vital Signs and Lab Results Vital Signs Most Recent Vital Signs in EMR: Most Recent Vital Signs Temp Pulse Resp BP Pulse Ox 36.2 C L 69 16 148/81 H 96 08/17/25 10:53 08/17/25 10:53 08/17/25 10:53 08/17/25 10:53 08/17/25 10:53 Lab Results Complete Metabolic Panel: Sodium, (136-145) 143 mmol/L 08/02/25, 07:07 Potassium, (3.5-5.1) 3.4 mmol/L L 08/02/25, 07:07 Chloride, (98-107) 105 mmol/L 08/02/25, 07:07 Carbon Dioxide, (21.0-32.0) 28.1 mmol/L 08/02/25, 07:07 BUN, (7-18) 6 mg/dL L 08/02/25, 07:07 Creatinine, (0.55-1.02) 0.7 mg/dL 08/02/25, 07:07 Est GFR (CKD-EPI 2020), (mL/min/1.73m2) 94.73 08/02/25, 07:07 Calcium, (8.5-10.1) 8.8 mg/dL 08/02/25, 07:07 Glucose, (74-106) 144 mg/dL H 08/02/25, 07:07 Hemoglobin A1c, (<5.7) 6.0 % H 08/02/25, 07:07 Imaging and Studies Imaging and Studies Study information below may be from another EMR and interpreted by another provider. Please see original notes in EMR for more complete details. EKG Summary: 06/06/2020 Exam: Resting ECG Patient Location: O HR:71 bpm ECG Measurements Heart Rate 71 AXIS VA 172 P 60 QRSd 101 QRS 8 QT 450 T53 QTc 491 <Conclusion> Sinus rhythm...normal P axis, V-rate 60- 99 Stress Test Summary: 06/11/2020 Stress ECG Conclusion 1. Resting electrocardiogram was within normal limits. 2. Patient exercised on the Iplo protocol and completed a workload of 5.45 METS. She achieved 861% of predicted heart rate for age 3. Normal blood pressure response to exercise. Blunted heart rate response to exercise 4. Electrocardiographically the test was nondiagnostic due to inadequate heart rate 5. Sporadic PVCs were seen Echocardiogram Summary: 07/03/2020 Conclusion Left Ventricle : The left ventricle is normal size. The left ventricular systolic function is normal. The left ventricular ejection fraction is within the normal range. There is normal left ventricular wall thickness. There is normal LV segmental wall motion. Diastolic function is normal. LVEF is 60%. Right Ventricle : The right ventricle is normal size. The right ventricular systolic function is normal. The RVSP is 26 mmHg. Atria : The left atrium size is normal. The right atrium size is normal. Mitral Valve : The mitral valve is normal in structure. No evidence of mitral valve stenosis. Mild to moderate mitral regurgitation. Great Vessels : The ascending aorta is mildly dilated 3.3cm. Aortic arch is normal in caliber. IVC is normal in size and collapses >50% with inspiration. There is no prior study available for comparison. Pulmonary Function Summary: 05/25/2020 Impression Normal spirometry, no bronchodilator response. Clinical correlation recommended Clinical Correlation therefore is recommended. Anesthesia Assessment and Plan Anesthesia History Personal History: No History of Anesthesia Complications Family History: No Family History of Anesthesia Complications Exercise Tolerance Exercise Tolerance: Metabolic Equivalents>4 Pertinent Negatives Pertinent Negatives: No Symptoms of GERD Cardiac & Pulmonary Exam Cardiac Exam: Normal S1/S2 Heart Sounds Pulmonary Exam: Clear Bilateral Breath Sounds Implantable Cardiac Device Does patient have a Pacemaker or an ICD?: No Airway Exam Known Difficult Airway: No Mallampati Class: 2 Mouth Opening: Normal (> 3cm) Thyromental Distance: Greater than 3 cm Neck Range of Motion: Full ROM Neck Circumference: Normal Teeth Condition: Removable Dentures/Plates Upper and Removable Dentures/Plates Lower ASA Classification ASA Score: ASA 3 Emergency Case?: No NPO Status NPO Status: NPO Clears >2 hours, Solids >8 hours Anesthesia Plan Resuscitation Status: Full Code Anesthesia Technique: General Anesthesia Airway Planned: Natural Airway Monitors Used: Standard Monitors
[2025-08-17 12:14] VITALS: BMI 37.5
--- NOTE | 2025-08-17 12:44 | BOWEL_PTH ---
PATIENT: Rama Severino LOC: [facility] U#:[id number] AGE/SX: 65/F ROOM: RE08/17/[address]: Pavithra Mirza MD : [id number] BED: DIS: 08/17/2025 SPEC #: [id number] RECD: 08/17/25 17:18 STATUS: CHARLES REQ #: [id number] PETER: 08/17/25 12:[address]: Pavithra Mirza DEPT: Surgical Specimen RECD BY: Randi Handy ENTERED: 08/17/25 17:18 SP TYPE: Bowel OTHR DR: Garrett Chan, CITY CLERK Tissues: 1 - BIOPSY BOWEL Procedures: GROSS AND MICRO LEVEL 4 Comments: [id number]
--- NOTE | 2025-08-17 12:52 | W.COLOREPORT ---
Date of service: 08/17/25 Time of Service: 12:52 Colonoscopy Report Pre-op diagnosis general: Screening for colorectal cancer Post-op diagnosis procedure note: same Procedure: Colonoscopy with cld forcep polypectomy Surgeon: Pavithra Mirza Anesthesia Type: General:No Airway Estimated blood loss (mL): 3 Pathology: other (descending colon polyp) Complications: None Indications: screening for colorectal cancer Prep: Miralax/Dulcolax (good) Procedure Description: Informed consent was obtained and the patient was taken to the procedure area. The patient was placed in left lateral decubitus position on the procedure table. Timeout was performed. Anesthesia was induced. A lubricated colonoscope was inserted through the anus and passed to the cecum. The cecum was identified by the ileocecal valve and the appendiceal orifice. The scope was then slowly withdrawn and the colonic and rectal mucosa examined. Descending colon polyp, sessile, 7mm x 4mm, excised piecemeal with cold forceps. No diverticulosis was seen. The scope was retroflexed in the anorectal junction examined. Uncomplicated internal hemorrhoids present. Assessment and plan; Descending colon polyp Next colonoscopy will be due in 5 years if adenomatous polyp, 3 years if serrated adenoma.
--- NOTE | 2025-08-17 12:56 | W.PM.DSUDISC ---
Date of service: 08/17/25 Discharge Plan Disposition Patient Disposition: Home Condition: Stable Discharge Details Attending Provider: Pavithra Mirza Primary Care Provider: Garrett Chan Home Meds and New Rx's Prescriptions: Continued cholecalciferol (vitamin D3) 3,000 unit tablet 5,000 unit PO DAILY ascorbate calcium (vitamin C) 500 mg tablet 500 mg PO DAILY loratadine 10 mg tablet 10 mg PO DAILY Qty: 90 3RF vitamin B complex Tablet 1 tab PO DAILY trazodone 100 mg tablet 100 mg PO HS PRN losartan 100 mg tablet 100 mg PO DAILY Qty: 90 3RF albuterol sulfate 2.5 mg /3 mL (0.083 %) solution for nebulization 2.5 mg IH QID PRN (Reason: shortness of breath or wheezing) Qty: 420 3RF albuterol sulfate 90 mcg/actuation HFA aerosol inhaler 2 puff Inhalation Q4H PRN PRN (Reason: shortness of breath or wheezing) Qty: 8.5 3RF Rx Instructions: Dispense #3 inhalers. use with spacer as directed. paroxetine HCl 40 mg tablet 40 mg PO DAILY Qty: 90 3RF Breztri Aerosphere 160-9-4.8 mcg/actuation HFA aerosol inhaler See Rx Instructions .ROUTE .COMPLEX Qty: 10.7 12RF Dose Instruction: INHALE TWO PUFFS BY MOUTH TWICE A DAY Rx Instructions: INHALE TWO PUFFS BY MOUTH TWICE A DAY potassium chloride 20 mEq tablet extended release 20 meq PO DAILY Qty: 30 0RF magnesium oxide 500 mg capsule 500 mg PO DAILY Qty: 30 0RF amlodipine 5 mg tablet 5 mg PO DAILY Qty: 90 4RF furosemide 20 mg tablet 20 mg PO DAILY Qty: 90 3RF metoprolol tartrate 50 mg tablet 25 mg PO BID Qty: 90 3RF cyanocobalamin (vitamin B-12) [Vitamin B-12] 1,000 mcg Tablet 1,000 mcg PO DAILY Systane Complete 0.6 % Drops 1 drp OPHTHALMIC (EYE) TID PRN Discontinued bisacodyl [Dulcolax (bisacodyl)] 5 mg tablet,delayed release (DR/EC) 5 mg PO ONCE Qty: 4 0RF Rx Instructions: Take per colonoscopy instructions provided by ordering providers office polyethylene glycol 3350 17 gram/dose powder 17 g PO ONCE Qty: 238 0RF Rx Instructions: Take per colonoscopy instructions provided by ordering providers office Discharge Instructions Additional Instructions: One polyp seen and removed from the left side of the colon. Timing of next colonoscopy will depend on what kind of polyp it is. If it is a tubular adenoma, you will be due to return in 5 years. If it is a sessile serrated adenoma, you will be due to return in 3 years. I will notify you in writing when the results are available. Stand Alone Forms: Anesthesia Discharge Inst., Colonoscopy Post Instructions, Azul Beaver (DSU) Activity:: Activity as Tolerated Diet:: As Tolerated Discharge Orders Discharge Orders: Discharge Order (Routine); Ordered 08/17/25 Ordered By: Pavithra Mirza DS: Diagnosis Discharge Diagnosis (1) Encounter for screening colonoscopy: Status: Acute (2) Polyp of descending colon: Status: Acute
[2025-08-17 13:00] VITALS: BP 148/83; PULSE 82; RESP 20; TEMP 36.5; O2SAT 95
--- NOTE | 2025-08-17 13:08 | W.ANESPOSTOP ---
Postoperative Evaluation Date, Time and Location Date Performed: 08/17/25 Time Performed: 13:08 Patient Location: Day Surgery Unit Vital Signs Most Recent Imported Vital Signs: Most Recent Vital Signs Temp Pulse Resp BP Pulse Ox 36.5 C 82 20 148/83 H 95 08/17/25 13:00 08/17/25 13:00 08/17/25 13:00 08/17/25 13:00 08/17/25 13:00 Pain Score Most Recent Pain Score: Most Recent Pain Score Pain Level 0 08/17/25 13:00 Assessment Mental Status: Awake (Alert & Oriented to Patient Baseline) Airway and Respiratory Function: Patent airway with normal (patient baseline) respiratory exam Cardiovascular Function: Hemodynamically Stable Hydration Status: Adequately Hydrated Nausea & Vomiting: No Nausea or Vomiting Pain: Pt. Denies Any Pain Peripheral Nerve Block: Patient did not receive a nerve block
[2025-08-17 13:28] VITALS: BP 147/71; PULSE 71; RESP 20; TEMP 36.8; O2SAT 95
== END 2025-08-17 13:44 | disposition home or self-care (01) ==
PROVIDERS: PCP Nurse Practitioner Family; Visit Provider Surgery
PROC: 0DJD8ZZ Inspection of Lower Intestinal Tract, Via Natural or Artificial Opening Endoscopic (ICD-10-PCS; CPT 45378; principal; 2025-08-17 12:45)
DX: Z12.11 Encounter for screening for malignant neoplasm of colon (principal); D12.2 Benign neoplasm of ascending colon
CPT/HCPCS: 45380; 88305; J2704

== ENCOUNTER → 2025-09-25 13:42 | Outpatient (BNVA) | payer MEDICARE, MEDICAID, SELFPAY | PROVIDERS: PCP Nurse Practitioner Family; Referring Provider Nurse Practitioner Family; Visit Provider Physician Assistant Surgical | DX: J43.1 Panlobular emphysema (principal); Z87.891 Personal history of nicotine dependence; J96.91 Respiratory failure, unspecified with hypoxia; Z23 Encounter for immunization | CPT/HCPCS: 90653; 99214; G0296 ==

== ENCOUNTER → 2025-10-23 02:11 | Outpatient (CLI) | payer MEDICARE, MEDICAID, SELFPAY ==
--- NOTE | 2025-10-23 10:15 | DI.MAMMO_ITS ---
Exam(s) MAMMO SCREENING EXAM: MAMMO SCREENING CLINICAL HISTORY: screening,z12.39 TECHNIQUE: Bilateral full field digital CC and MLO mammographic images were obtained with 3D tomosynthesis and utilizing computer aided detection (CAD). COMPARISON: Comparison is made with prior examinations. FINDINGS: Masses/Architectural Distortion: No suspicious masses or areas of architectural distortion are present. There are multiple bilateral well-circumscribed breast nodules. Hip there has been interval decrease in size of the patient's known cyst in the retroareolar region of the left breast. Microcalcifications: No suspicious pleomorphic-type are seen. Skin Thickening/Nipple Retraction: None. IMPRESSION: 1. No significant interval change with no specific features of malignancy noted. 2. Unless there is more urgent need, screening mammography is recommended, as per [employer] guidelines. BI-RADS Category 2 - Benign Findings Breast Density - Category B - There are scattered areas of fibroglandular density. Breast density Category C or D implies that the patient has dense breast tissue. Dense breast tissue can make it harder to find cancer on a mammogram. Dense breast tissue is also associated with an increased risk of breast cancer. This information about the result of the mammogram report was provided to the patient to raise their awareness. Use this report when you speak with the patient about their risks for breast cancer, which includes their family history. At that time, you may recommend additional screening tests (Ultrasound or MRI) as these tests may add significant information. A negative radiographic report should not delay biopsy if a dominant or clinically suspicious mass is present. Up to ten percent of cancers are not identified on mammography. A negative report may reinforce clinical impression. Adenosis and dense breasts may obscure an underlying neoplasm. False positive reports average 6 to 10%. Patient will receive a letter notifying them of these results.
== END ==
LOC: DI 02:11
PROVIDERS: PCP Nurse Practitioner Family; Visit Provider Nurse Practitioner Family
DX: Z12.31 Encounter for screening mammogram for malignant neoplasm of breast (principal)
CPT/HCPCS: 77063; 77067

== ENCOUNTER → 2025-10-23 02:12 | Outpatient (CLI) | payer MEDICARE, MEDICAID, SELFPAY ==
--- NOTE | 2025-10-23 | DI.CTLCSR_ITS ---
Exam(s) CT CHEST LUNG CANCER SCREEN EXAM: CT CHEST LUNG CANCER SCREEN CLINICAL HISTORY: Screening for lung cancer,former tobacco use,z87.891 TECHNIQUE: Imaging Protocol: Axial computed tomography images with coronal and sagittal reformatted images were created and reviewed. Lung Computer Aided Detection (CAD) was utilized. COMPARISON: CT CT CHEST LUNG CANCER SCREEN from 10/12/[address] CHEST LUNG CANCER SCREEN from 10/13/2024 FINDINGS: Tracheobronchial tree: Patent where visualized. No bronchiectasis. Pulmonary parenchyma: No consolidation or dominant measurable mass. Mild centrilobular emphysematous changes are present. There are calcified granuloma present. Lung Nodules: There are no suspicious pulmonary nodules. Mediastinum and Briseyda: No dominant adenopathy or fluid collection. The esophagus is unremarkable. Thyroid gland: Unremarkable. Lymph nodes: Unremarkable. Pleura: No effusion or pneumothorax. Heart: The heart is not dilated. Coronary artery calcifications are present. No pericardial effusion. Aorta: The ascending thoracic aorta measures 3.9 x 3.5 cm. Atherosclerotic calcification is present. Upper abdomen: Left nephrolithiasis. Soft Tissues: Unremarkable. Bones: Within normal limits. IMPRESSION: There are no suspicious pulmonary nodules. Lung RADS Cat 1 - Negative: No nodules and definitely benign nodules Lung-RADS 1.0 CATEGORIES: Category 0 - Prior chest CT exam(s) being located for comparison. Category 1 - Annual screening in 12 months. No nodules or definitely benign nodules. Category 2 - Annual screening in 12 months. Benign appearance. Nodules with low likelihood of becoming active cancer. Category 3 - 6-month follow-up. Probably benign. Short-term follow-up suggested. Nodules with low likelihood of becoming active cancer. Category 4A - 3-month follow-up and CT/PET if >8 mm in size. Suspicious finding. Findings which require additional testing. Category 4B - Findings which require additional testing and tissue sampling. Suspicious finding. Category 4X - Category 3 or 4 nodules with additional features or imaging findings that increases the suspicion of malignancy. Modifier S- Potentially clinically significant finding. (Non lung cancer) RADIATION DOSE DELIVERED: 40.47mGy.cm Total DLP 40.47mGy.cmTotal DLP DATA REPOSITORY: All CT scans at this facility are submitted to the National Radiology Data Registry (NRDR) Dose Index Registry (DIR) with the [employer] ([employer]). RADIATION OPTIMIZATION: All CT scans at this facility use at least one of these dose optimization techniques: automated exposure control; mA and/or kV adjustment per patient size (includes targeted exams where dose is matched to clinical indication); or iterative reconstruction.
== END ==
LOC: DI 02:13
PROVIDERS: PCP Nurse Practitioner Family; Visit Provider Physician Assistant Surgical
DX: Z87.890 Personal history of sex reassignment (principal)
CPT/HCPCS: 71271